=== PATIENT | male | born 1960 | race Caucasian/White ===

== ENCOUNTER 2018-05-07 13:19 | Emergency (ER) | payer OTHER, MEDICAID ==
[2018-05-07] MEDS: SOD CHLORIDE 0.9% 1,000 ML IV ×2 (14:30→17:37)
[2018-05-07 14:33] LABS: ADD MAN DIFF? NO
[2018-05-07 14:35] LABS: BASOPHILS % 0.7 % (0.0-2.0); EOSINOPHILS # 0.5 10^3/ul (0.0-0.5); EOSINOPHILS % 9.3 % (0.0-7.0); HEMATOCRIT 36.4 % (42.0-52.0); HEMOGLOBIN 11.4 g/dl (14.0-18.0); MEAN CORPUSCULAR HEMOGLOBIN 26.3 pg (29.0-33.0); MEAN CORPUSCULAR HGB CONC 31.3 g/dl (32.0-37.0); MEAN CORPUSCULAR VOLUME 84.1 fl (82.0-101.0); MEAN PLATELET VOLUME 9.2 fl (7.4-10.4); MONOCYTE # 0.5 10^3/ul (0.3-0.9); MONOCYTES % 9.6 % (0.0-11.0); NEUTROPHIL # 3.4 10^3/ul (1.6-7.5); NEUTROPHILS % 62.2 % (39.0-77.0); PLATELET COUNT 338 10^3/UL (140-415); RED BLOOD COUNT 4.33 10^6/ul (4.70-6.10); RED CELL DISTRIBUTION WIDTH 17.2 % (11.5-14.5)
[2018-05-07 14:35] LABS: WHITE BLOOD COUNT 5.5 10^3/ul (4.8-10.8)
[2018-05-07 14:57] LABS: ANION GAP 10 (5-13); BLOOD UREA NITROGEN 16 mg/dl (7-20); CALCIUM 9.7 mg/dl (8.4-10.2); CARBON DIOXIDE 24 mmol/L (21-31); CHLORIDE 106 mmol/L (97-110); CREATININE 1.07 mg/dl (0.61-1.24); Estimated GFR > 60 mL/min (>60); GLUCOSE 108 mg/dl (70-220); POTASSIUM 4.6 mmol/L (3.5-5.1); SODIUM 140 mmol/L (135-144)
[2018-05-07 15:07] LABS: TROPONIN-I < 0.012 ng/ml (0.000-0.120)
[2018-05-07 15:46] LABS: ADD UMIC YES; UR ASCORBIC ACID NEGATIVE (NEGATIVE); UR BILIRUBIN (Dip) NEGATIVE (NEGATIVE); UR BLOOD (Dip) NEGATIVE (NEGATIVE); UR CLARITY SLIGHTLY CLOUDY (CLEAR); UR COLOR AMBER (YELLOW); UR GLUCOSE (Dip) NEGATIVE (NEGATIVE); UR KETONES (Dip) TRACE mg/dL (NEGATIVE); UR LEUKOCYTE ESTERASE (Dip) 2+ Leu/ul (NEGATIVE); UR MUCUS MODERATE /HPF (NONE SEEN); UR NITRITE (Dip) NEGATIVE (NEGATIVE); UR RBC 4 /HPF (0-5); UR SQUAMOUS EPITHELIAL CELL FEW /HPF (FEW); UR TOTAL PROTEIN (Dip) 1+ mg/dl (NEGATIVE); UR UROBILINOGEN (Dip) NEGATIVE (NEGATIVE); UR WBC 26 /HPF (0-5)
[2018-05-07 15:48] LABS: D-DIMER 4406.87 ng/ml (<460)
[2018-05-07] MEDS: CEFTRIAXONE 1 GM/50 ML (PMX) 50 ML IVPB (17:25)
[2018-05-07] MEDS: HYDROCODONE/APAP (10/325) TAB PO (17:25)
== END 2018-05-07 20:56 | disposition home or self-care (01) ==
LOC: E/R 13:19
DX: T83.511A Infection and inflammatory reaction due to indwelling urethral catheter, initial encounter (principal); N39.0 Urinary tract infection, site not specified; E86.0 Dehydration; I10 Essential (primary) hypertension; E11.9 Type 2 diabetes mellitus without complications; Y73.2 Prosthetic and other implants, materials and accessory gastroenterology and urology devices associated with adverse incidents
CPT/HCPCS: 36415; 71045; 71275; 80048; 81001; 83605; 84484; 85025; 85378; 87086; 93005; 96374; 99285-25

== ENCOUNTER 2018-05-25 09:39 | Inpatient (IN) | payer OTHER ==
[2018-05-25 10:18] LABS: ADD MAN DIFF? NO
[2018-05-25 10:34] LABS: WHITE BLOOD COUNT 4.8 10^3/ul (4.8-10.8)
[2018-05-25 10:35] LABS: BASOPHILS % 0.8 % (0.0-2.0); EOSINOPHILS # 0.5 10^3/ul (0.0-0.5); EOSINOPHILS % 9.6 % (0.0-7.0); HEMATOCRIT 27.6 % (42.0-52.0); HEMOGLOBIN 8.6 g/dl (14.0-18.0); LYMPHOCYTES # 1.2 10^3/ul (0.8-2.9); LYMPHOCYTES % 24.3 % (15.0-51.0); MEAN CORPUSCULAR HEMOGLOBIN 25.4 pg (29.0-33.0); MEAN CORPUSCULAR HGB CONC 31.2 g/dl (32.0-37.0); MEAN CORPUSCULAR VOLUME 81.4 fl (82.0-101.0); MEAN PLATELET VOLUME 9.4 fl (7.4-10.4); MONOCYTE # 0.4 10^3/ul (0.3-0.9); MONOCYTES % 7.8 % (0.0-11.0); NEUTROPHIL # 2.7 10^3/ul (1.6-7.5); NEUTROPHILS % 57.1 % (39.0-77.0); PLATELET COUNT 403 10^3/UL (140-415); RED BLOOD COUNT 3.39 10^6/ul (4.70-6.10); RED CELL DISTRIBUTION WIDTH 15.6 % (11.5-14.5)
[2018-05-25] MEDS: PIPER-TAZO 3.375 GM IV (PMX) 100 ML IVPB (10:36)
[2018-05-25] MEDS: VANCOMYCIN 1 GM (PMX) 250 ML IVPB (10:36)
[2018-05-25] MEDS: SODIUM CHLORIDE 0.9% 1L BAG IV* (10:36)
[2018-05-25 10:55] LABS: INR 1.14; PROTIME 14.8 Sec (11.9-14.9); PT RATIO 1.2
[2018-05-25 10:56] LABS: PARTIAL THROMBOPLASTIN TIME 45.9 Sec (23.0-35.0)
[2018-05-25 10:57] LABS: ALBUMIN/GLOBULIN RATIO 0.91; ANION GAP 10 (5-13); Estimated GFR > 60 mL/min (>60)
[2018-05-25 10:58] LABS: ALANINE AMINOTRANSFERASE 14 IU/L (13-69); ALBUMIN 3.3 g/dl (3.3-4.9); ALKALINE PHOSPHATASE 95 IU/L (42-121); AMYLASE 59 U/L (11-123); ASPARTATE AMINO TRANSFERASE 57 IU/L (15-46); BILIRUBIN,INDIRECT 0.4 mg/dl (0-1.1); BILIRUBIN,TOTAL 0.4 mg/dl (0.2-1.3); BLOOD UREA NITROGEN 9 mg/dl (7-20); CALCIUM 8.5 mg/dl (8.4-10.2); CARBON DIOXIDE 20 mmol/L (21-31); CHLORIDE 107 mmol/L (97-110); CREATININE 0.72 mg/dl (0.61-1.24); GLUCOSE 109 mg/dl (70-220); LIPASE 106 U/L (23-300); POTASSIUM 4.9 mmol/L (3.5-5.1); SODIUM 137 mmol/L (135-144); TOTAL PROTEIN 6.9 g/dl (6.1-8.1)
[2018-05-25 11:08] LABS: TROPONIN-I < 0.012 ng/ml (0.000-0.120)
[2018-05-25 12:49] LABS: ADD UMIC NO; UR ASCORBIC ACID NEGATIVE (NEGATIVE); UR BILIRUBIN (Dip) NEGATIVE (NEGATIVE); UR BLOOD (Dip) NEGATIVE (NEGATIVE); UR CLARITY CLEAR (CLEAR); UR COLOR AMBER (YELLOW); UR GLUCOSE (Dip) NEGATIVE (NEGATIVE); UR KETONES (Dip) NEGATIVE (NEGATIVE); UR LEUKOCYTE ESTERASE (Dip) NEGATIVE Leu/ul (NEGATIVE); UR NITRITE (Dip) NEGATIVE (NEGATIVE); UR SPECIFIC GRAVITY (Dip) 1.014 (1.003-1.030); UR TOTAL PROTEIN (Dip) NEGATIVE (NEGATIVE); UR UROBILINOGEN (Dip) NEGATIVE (NEGATIVE)
[2018-05-25] MEDS: ONDANSETRON 4 MG INJ IV (13:32)
[2018-05-25] MEDS: HYDROmorphONE 1 MG/ML SYG IV (13:32)
[2018-05-25 14:58] LABS: LACTIC ACID 0.8 mmol/L (0.5-2.0)
[2018-05-25] MEDS ORDERED: ACETAMINOPHEN 325 MG TAB PO (15:00)
[2018-05-25] MEDS ORDERED: ONDANSETRON 4 MG INJ IV ×2 (15:00→15:30)
[2018-05-25] MEDS ORDERED: NACL 0.9% 3 ML SYG IV (15:30)
[2018-05-25] MEDS ORDERED: DOCUSATE SODIUM 100 MG CAP PO ×2 (15:30)
[2018-05-25] MEDS ORDERED: VANCOMYCIN IV PER PHARMACY XX (15:30)
[2018-05-25] MEDS ORDERED: ZOLPIDEM 5 MG TAB PO (15:30)
[2018-05-25] MEDS ORDERED: PENDING SANTYL ORDER FOR WOUND CARE XX (16:30)
[2018-05-25] MEDS: morphine 2 MG INJ IV (19:57)
[2018-05-25] MEDS ORDERED: POLYVINYL ALCOHOL BOTH EYES (22:00)
[2018-05-25] MEDS: MAGNESIUM OXIDE 400 MG TAB PO (22:10)
[2018-05-25] MEDS: FAMOTIDINE 20 MG TAB PO (22:10)
[2018-05-25] MEDS: GABAPENTIN 100 MG CAP PO (22:10)
[2018-05-25] MEDS: RISPERIDONE 1 MG TAB PO (22:11)
[2018-05-25] MEDS: BACLOFEN 10 MG TAB PO (22:11)
[2018-05-25] MEDS: ARTIFICIAL TEARS 15 ML OPH BOTH EYES (22:12)
[2018-05-25] MEDS: ZONISAMIDE 100 MG CAP PO (22:12)
[2018-05-25] MEDS: NYSTATIN 15 GM POWDER BTL TOP (22:12)
[2018-05-25] MEDS: VANCOMYCIN 1.25 GM in SOD CHLORIDE 0.9% 250 ML IVPB (22:39)
[2018-05-26] MEDS: morphine 2 MG INJ IV ×2 (00:27→13:40)
[2018-05-26 06:29] LABS: ADD MAN DIFF? NO
[2018-05-26 06:40] LABS: WHITE BLOOD COUNT 3.3 10^3/ul (4.8-10.8)
[2018-05-26 06:40] LABS: BASOPHILS % 1.2 % (0.0-2.0); EOSINOPHILS # 0.4 10^3/ul (0.0-0.5); EOSINOPHILS % 11.2 % (0.0-7.0); HEMOGLOBIN 7.7 g/dl (14.0-18.0); LYMPHOCYTES # 0.8 10^3/ul (0.8-2.9); LYMPHOCYTES % 25.2 % (15.0-51.0); MEAN CORPUSCULAR HEMOGLOBIN 25.7 pg (29.0-33.0); MEAN CORPUSCULAR HGB CONC 30.8 g/dl (32.0-37.0); MEAN CORPUSCULAR VOLUME 83.3 fl (82.0-101.0); MEAN PLATELET VOLUME 9.1 fl (7.4-10.4); MONOCYTE # 0.4 10^3/ul (0.3-0.9); MONOCYTES % 11.6 % (0.0-11.0); NEUTROPHIL # 1.7 10^3/ul (1.6-7.5); NEUTROPHILS % 50.5 % (39.0-77.0); PLATELET COUNT 352 10^3/UL (140-415); RED CELL DISTRIBUTION WIDTH 15.7 % (11.5-14.5)
[2018-05-26] MEDS: ARTIFICIAL TEARS 15 ML OPH BOTH EYES ×3 (06:49→21:31)
[2018-05-26 07:01] LABS: ANION GAP 6 (5-13); BLOOD UREA NITROGEN 7 mg/dl (7-20); CALCIUM 8.3 mg/dl (8.4-10.2); CARBON DIOXIDE 20 mmol/L (21-31); CHLORIDE 114 mmol/L (97-110); CREATININE 0.79 mg/dl (0.61-1.24); Estimated GFR > 60 mL/min (>60); GLUCOSE 90 mg/dl (70-220); MAGNESIUM 2.3 mg/dl (1.7-2.5); PHOSPHORUS 3.6 mg/dl (2.5-4.9); POTASSIUM 4.2 mmol/L (3.5-5.1); SODIUM 140 mmol/L (135-144)
[2018-05-26 07:48] LABS: HEMOGLOBIN A1C 5.7 % (0-5.9)
[2018-05-26] MEDS: FOLIC ACID 1 MG TAB PO (08:38)
[2018-05-26] MEDS: RIFAMPIN 300 MG CAP PO (08:38)
[2018-05-26] MEDS: GABAPENTIN 100 MG CAP PO ×2 (08:38→21:32)
[2018-05-26] MEDS: PYRIDOXINE 50 MG TAB PO (08:39)
[2018-05-26] MEDS: MAGNESIUM OXIDE 400 MG TAB PO ×2 (08:39→21:33)
[2018-05-26] MEDS: ALLOPURINOL 100 MG TAB PO (08:39)
[2018-05-26] MEDS: ISONIAZID 300 MG TAB PO (08:39)
[2018-05-26] MEDS: BACLOFEN 10 MG TAB PO ×3 (08:39→21:33)
[2018-05-26] MEDS: FAMOTIDINE 20 MG TAB PO ×2 (08:39→21:33)
[2018-05-26] MEDS: DULOXETINE 30 MG CAP DR PO (08:39)
[2018-05-26] MEDS: NYSTATIN 15 GM POWDER BTL TOP ×2 (08:40→21:34)
[2018-05-26] MEDS: VANCOMYCIN 1.25 GM in SOD CHLORIDE 0.9% 250 ML IVPB ×2 (09:39→21:31)
[2018-05-26 12:44] LABS: IRON 17 ug/dl (35-150)
[2018-05-26 12:54] LABS: % IRON SATURATION 11 % SAT (22-52); TOTAL IRON BINDING CAPACITY 152 ug/dl (241-421)
[2018-05-26] MEDS: HYDROCORTISONE 1% 28 GM CR TOP (21:32)
[2018-05-26] MEDS: VITAMIN A & D 5 GM OINT PACKET TOP (21:32)
[2018-05-26] MEDS: ZONISAMIDE 100 MG CAP PO (21:33)
[2018-05-26] MEDS: RISPERIDONE 1 MG TAB PO (21:33)
[2018-05-27] MEDS: ARTIFICIAL TEARS 15 ML OPH BOTH EYES ×3 (05:16→21:21)
[2018-05-27] MEDS: BALSAM PERU/CASTOR OIL 60 GM TUBE TOP ×2 (09:00→09:32)
[2018-05-27] MEDS: DULOXETINE 30 MG CAP DR PO (09:25)
[2018-05-27] MEDS: FOLIC ACID 1 MG TAB PO (09:26)
[2018-05-27] MEDS: GABAPENTIN 100 MG CAP PO ×2 (09:27→21:12)
[2018-05-27] MEDS: MAGNESIUM OXIDE 400 MG TAB PO ×2 (09:27→21:12)
[2018-05-27] MEDS: ISONIAZID 300 MG TAB PO (09:27)
[2018-05-27] MEDS: BACLOFEN 10 MG TAB PO ×3 (09:27→21:12)
[2018-05-27] MEDS: RIFAMPIN 300 MG CAP PO (09:28)
[2018-05-27] MEDS: ALLOPURINOL 100 MG TAB PO (09:28)
[2018-05-27] MEDS: PYRIDOXINE 50 MG TAB PO (09:28)
[2018-05-27 09:29] LABS: ADD MAN DIFF? NO
[2018-05-27] MEDS: VITAMIN A & D 5 GM OINT PACKET TOP ×2 (09:29→21:12)
[2018-05-27] MEDS: HYDROCORTISONE 1% 28 GM CR TOP ×2 (09:29→21:23)
[2018-05-27] MEDS: NYSTATIN 15 GM POWDER BTL TOP ×2 (09:33→21:13)
[2018-05-27 09:34] LABS: BASOPHILS % 0.8 % (0.0-2.0); EOSINOPHILS # 0.4 10^3/ul (0.0-0.5); EOSINOPHILS % 10.5 % (0.0-7.0); HEMATOCRIT 26.8 % (42.0-52.0); HEMOGLOBIN 8.4 g/dl (14.0-18.0); LYMPHOCYTES # 0.9 10^3/ul (0.8-2.9); LYMPHOCYTES % 23.3 % (15.0-51.0); MEAN CORPUSCULAR HGB CONC 31.3 g/dl (32.0-37.0); MEAN PLATELET VOLUME 8.7 fl (7.4-10.4); MONOCYTE # 0.3 10^3/ul (0.3-0.9); MONOCYTES % 7.3 % (0.0-11.0); NEUTROPHIL # 2.2 10^3/ul (1.6-7.5); NEUTROPHILS % 57.8 % (39.0-77.0); PLATELET COUNT 419 10^3/UL (140-415); RED BLOOD COUNT 3.23 10^6/ul (4.70-6.10); RED CELL DISTRIBUTION WIDTH 15.6 % (11.5-14.5)
[2018-05-27 09:34] LABS: WHITE BLOOD COUNT 3.8 10^3/ul (4.8-10.8)
[2018-05-27] MEDS: morphine 2 MG INJ IV ×2 (09:34→14:07)
[2018-05-27] MEDS: FAMOTIDINE 20 MG TAB PO ×2 (09:35→21:11)
[2018-05-27 09:56] LABS: ANION GAP 8 (5-13); BLOOD UREA NITROGEN 6 mg/dl (7-20); CALCIUM 8.9 mg/dl (8.4-10.2); CARBON DIOXIDE 20 mmol/L (21-31); CHLORIDE 114 mmol/L (97-110); CREATININE 0.75 mg/dl (0.61-1.24); Estimated GFR > 60 mL/min (>60); GLUCOSE 138 mg/dl (70-220); POTASSIUM 4.2 mmol/L (3.5-5.1); SODIUM 142 mmol/L (135-144)
[2018-05-27] MEDS: VANCOMYCIN 1.25 GM in SOD CHLORIDE 0.9% 250 ML IVPB (10:00)
[2018-05-27 10:09] LABS: VANCOMYCIN,TROUGH 24.4 ug/ml (10.0-20.0)
[2018-05-27 11:22] LABS: IRON 14 ug/dl (35-150)
[2018-05-27 11:32] LABS: % IRON SATURATION 9 % SAT (22-52); TOTAL IRON BINDING CAPACITY 164 ug/dl (241-421)
[2018-05-27] MEDS: COLLAGENASE 5 GM (UD JAR) TOP (17:30)
[2018-05-27] MEDS: SODIUM HYPOCHLORITE (1/40) 1 APPLIC BTL IRR (18:30)
[2018-05-27] MEDS ORDERED: VANCOMYCIN 1.5 GM in SOD CHLORIDE 0.9% 250 ML IVPB (21:00)
[2018-05-27] MEDS: DOCUSATE SODIUM 100 MG CAP PO (21:11)
[2018-05-27] MEDS: RISPERIDONE 1 MG TAB PO (21:12)
[2018-05-27] MEDS: ZONISAMIDE 100 MG CAP PO (21:12)
[2018-05-27] MEDS: FERROUS FUMARATE (SR) TAB PO (21:12)
[2018-05-28] MEDS: ARTIFICIAL TEARS 15 ML OPH BOTH EYES ×3 (06:22→21:19)
[2018-05-28] MEDS: BALSAM PERU/CASTOR OIL 60 GM TUBE TOP (09:00)
[2018-05-28] MEDS: SODIUM HYPOCHLORITE (1/40) 1 APPLIC BTL IRR (09:00)
[2018-05-28] MEDS: FAMOTIDINE 20 MG TAB PO ×2 (09:05→22:05)
[2018-05-28] MEDS: RIFAMPIN 300 MG CAP PO (09:05)
[2018-05-28] MEDS: ALLOPURINOL 100 MG TAB PO (09:05)
[2018-05-28] MEDS: FERROUS FUMARATE (SR) TAB PO ×2 (09:05→21:03)
[2018-05-28] MEDS: ISONIAZID 300 MG TAB PO (09:06)
[2018-05-28] MEDS: MAGNESIUM OXIDE 400 MG TAB PO ×2 (09:06→21:03)
[2018-05-28] MEDS: DULOXETINE 30 MG CAP DR PO (09:06)
[2018-05-28] MEDS: DOCUSATE SODIUM 100 MG CAP PO ×2 (09:06→21:03)
[2018-05-28] MEDS: FOLIC ACID 1 MG TAB PO (09:06)
[2018-05-28] MEDS: BACLOFEN 10 MG TAB PO ×3 (09:06→21:03)
[2018-05-28] MEDS: PYRIDOXINE 50 MG TAB PO (09:07)
[2018-05-28] MEDS: GABAPENTIN 100 MG CAP PO ×2 (09:07→21:03)
[2018-05-28] MEDS: ENOXAPARIN 40 MG/0.4 ML SYG SC (09:10)
[2018-05-28] MEDS: HYDROCORTISONE 1% 28 GM CR TOP ×2 (09:12→21:08)
[2018-05-28] MEDS: VITAMIN A & D 5 GM OINT PACKET TOP ×2 (09:13→21:04)
[2018-05-28] MEDS: COLLAGENASE 5 GM (UD JAR) TOP (09:13)
[2018-05-28] MEDS: HYDROCODONE/APAP (5/325) TAB PO ×3 (09:18→22:50)
[2018-05-28] MEDS: NYSTATIN 15 GM POWDER BTL TOP ×2 (10:17→21:00)
[2018-05-28] MEDS: morphine 2 MG INJ IV ×2 (13:38→21:09)
[2018-05-28] MEDS: LEVOFLOXACIN 500MG/D5W (PMX) 100 ML IVPB (14:30)
[2018-05-28] MEDS: RISPERIDONE 1 MG TAB PO (21:03)
[2018-05-28] MEDS: ZONISAMIDE 100 MG CAP PO (21:03)
[2018-05-29] MEDS: morphine 2 MG INJ IV ×4 (01:19→22:23)
[2018-05-29] MEDS: ARTIFICIAL TEARS 15 ML OPH BOTH EYES ×3 (05:57→21:00)
[2018-05-29] MEDS: HYDROCODONE/APAP (5/325) TAB PO ×3 (05:57→20:55)
[2018-05-29] MEDS: SODIUM HYPOCHLORITE (1/40) 1 APPLIC BTL IRR (09:00)
[2018-05-29] MEDS: DOCUSATE SODIUM 100 MG CAP PO ×2 (09:56→20:57)
[2018-05-29] MEDS: RIFAMPIN 300 MG CAP PO (09:57)
[2018-05-29] MEDS: FAMOTIDINE 20 MG TAB PO ×2 (09:57→20:57)
[2018-05-29] MEDS: BACLOFEN 10 MG TAB PO ×3 (09:57→20:58)
[2018-05-29] MEDS: GABAPENTIN 100 MG CAP PO ×2 (09:57→20:58)
[2018-05-29] MEDS: FERROUS FUMARATE (SR) TAB PO ×2 (09:57→20:56)
[2018-05-29] MEDS: ALLOPURINOL 100 MG TAB PO (09:57)
[2018-05-29] MEDS: FOLIC ACID 1 MG TAB PO (09:57)
[2018-05-29] MEDS: MAGNESIUM OXIDE 400 MG TAB PO ×2 (09:57→20:57)
[2018-05-29] MEDS: DULOXETINE 30 MG CAP DR PO (09:57)
[2018-05-29] MEDS: VITAMIN A & D 5 GM OINT PACKET TOP ×2 (09:58→20:58)
[2018-05-29] MEDS: ISONIAZID 300 MG TAB PO (09:58)
[2018-05-29] MEDS: PYRIDOXINE 50 MG TAB PO (09:58)
[2018-05-29] MEDS: ENOXAPARIN 40 MG/0.4 ML SYG SC (09:59)
[2018-05-29] MEDS: NYSTATIN 15 GM POWDER BTL TOP ×2 (09:59→21:06)
[2018-05-29] MEDS: COLLAGENASE 5 GM (UD JAR) TOP (09:59)
[2018-05-29] MEDS: BALSAM PERU/CASTOR OIL 60 GM TUBE TOP (09:59)
[2018-05-29] MEDS: HYDROCORTISONE 1% 28 GM CR TOP ×2 (09:59→20:58)
[2018-05-29] MEDS: LEVOFLOXACIN 500MG/D5W (PMX) 100 ML IVPB (13:35)
[2018-05-29] MEDS: RISPERIDONE 1 MG TAB PO (20:57)
[2018-05-29] MEDS: ZONISAMIDE 100 MG CAP PO (21:04)
[2018-05-30] MEDS: HYDROCODONE/APAP (5/325) TAB PO ×3 (02:58→17:25)
[2018-05-30] MEDS: ARTIFICIAL TEARS 15 ML OPH BOTH EYES ×3 (06:13→21:15)
[2018-05-30] MEDS: morphine 2 MG INJ IV ×3 (06:29→21:14)
[2018-05-30] MEDS: COLLAGENASE 5 GM (UD JAR) TOP (09:01)
[2018-05-30] MEDS: MAGNESIUM OXIDE 400 MG TAB PO ×2 (09:01→21:16)
[2018-05-30] MEDS: DOCUSATE SODIUM 100 MG CAP PO ×2 (09:01→21:15)
[2018-05-30] MEDS: ISONIAZID 300 MG TAB PO (09:02)
[2018-05-30] MEDS: GABAPENTIN 100 MG CAP PO ×2 (09:02→21:16)
[2018-05-30] MEDS: ALLOPURINOL 100 MG TAB PO (09:02)
[2018-05-30] MEDS: PYRIDOXINE 50 MG TAB PO (09:02)
[2018-05-30] MEDS: BACLOFEN 10 MG TAB PO ×3 (09:02→21:16)
[2018-05-30] MEDS: RIFAMPIN 300 MG CAP PO (09:02)
[2018-05-30] MEDS: FERROUS FUMARATE (SR) TAB PO ×2 (09:03→21:16)
[2018-05-30] MEDS: FOLIC ACID 1 MG TAB PO (09:03)
[2018-05-30] MEDS: DULOXETINE 30 MG CAP DR PO (09:03)
[2018-05-30] MEDS: FAMOTIDINE 20 MG TAB PO ×2 (09:03→21:16)
[2018-05-30] MEDS: VITAMIN A & D 5 GM OINT PACKET TOP ×2 (09:05→21:17)
[2018-05-30] MEDS: SODIUM HYPOCHLORITE (1/40) 1 APPLIC BTL IRR (09:05)
[2018-05-30] MEDS: ENOXAPARIN 40 MG/0.4 ML SYG SC (09:05)
[2018-05-30] MEDS: HYDROCORTISONE 1% 28 GM CR TOP ×2 (09:05→21:28)
[2018-05-30] MEDS: NYSTATIN 15 GM POWDER BTL TOP ×2 (09:05→21:17)
[2018-05-30] MEDS: BALSAM PERU/CASTOR OIL 60 GM TUBE TOP (09:05)
[2018-05-30] MEDS: LEVOFLOXACIN 500MG/D5W (PMX) 100 ML IVPB (13:53)
[2018-05-30] MEDS: RISPERIDONE 1 MG TAB PO (21:16)
[2018-05-30] MEDS: ZONISAMIDE 100 MG CAP PO (21:17)
[2018-05-31] MEDS: morphine 2 MG INJ IV ×3 (02:59→19:37)
[2018-05-31 05:17] LABS: ADD MAN DIFF? NO
[2018-05-31 05:27] LABS: EOSINOPHILS # 0.4 10^3/ul (0.0-0.5); EOSINOPHILS % 10.3 % (0.0-7.0); HEMATOCRIT 24.8 % (42.0-52.0); HEMOGLOBIN 7.7 g/dl (14.0-18.0); LYMPHOCYTES # 1.1 10^3/ul (0.8-2.9); LYMPHOCYTES % 26.7 % (15.0-51.0); MEAN CORPUSCULAR HEMOGLOBIN 25.2 pg (29.0-33.0); MEAN CORPUSCULAR VOLUME 81.3 fl (82.0-101.0); MEAN PLATELET VOLUME 8.6 fl (7.4-10.4); MONOCYTE # 0.5 10^3/ul (0.3-0.9); MONOCYTES % 11.5 % (0.0-11.0); NEUTROPHIL # 2.1 10^3/ul (1.6-7.5); PLATELET COUNT 371 10^3/UL (140-415); RED BLOOD COUNT 3.05 10^6/ul (4.70-6.10); RED CELL DISTRIBUTION WIDTH 15.9 % (11.5-14.5)
[2018-05-31 05:27] LABS: WHITE BLOOD COUNT 4.2 10^3/ul (4.8-10.8)
[2018-05-31] MEDS: ARTIFICIAL TEARS 15 ML OPH BOTH EYES ×3 (05:41→21:19)
[2018-05-31 05:54] LABS: ANION GAP 8 (5-13); BLOOD UREA NITROGEN 7 mg/dl (7-20); CALCIUM 8.5 mg/dl (8.4-10.2); CARBON DIOXIDE 21 mmol/L (21-31); CHLORIDE 110 mmol/L (97-110); CREATININE 0.73 mg/dl (0.61-1.24); Estimated GFR > 60 mL/min (>60); GLUCOSE 97 mg/dl (70-220); POTASSIUM 4.4 mmol/L (3.5-5.1); SODIUM 139 mmol/L (135-144)
[2018-05-31] MEDS: BALSAM PERU/CASTOR OIL 60 GM TUBE TOP (09:00)
[2018-05-31] MEDS: VITAMIN A & D 5 GM OINT PACKET TOP ×2 (09:24→21:17)
[2018-05-31] MEDS: GABAPENTIN 100 MG CAP PO ×2 (09:24→21:20)
[2018-05-31] MEDS: FAMOTIDINE 20 MG TAB PO ×2 (09:24→21:21)
[2018-05-31] MEDS: RIFAMPIN 300 MG CAP PO (09:24)
[2018-05-31] MEDS: COLLAGENASE 5 GM (UD JAR) TOP (09:24)
[2018-05-31] MEDS: ISONIAZID 300 MG TAB PO (09:24)
[2018-05-31] MEDS: DOCUSATE SODIUM 100 MG CAP PO ×2 (09:24→21:20)
[2018-05-31] MEDS: FERROUS FUMARATE (SR) TAB PO ×2 (09:24→21:21)
[2018-05-31] MEDS: PYRIDOXINE 50 MG TAB PO (09:24)
[2018-05-31] MEDS: BACLOFEN 10 MG TAB PO ×3 (09:25→21:21)
[2018-05-31] MEDS: DULOXETINE 30 MG CAP DR PO (09:25)
[2018-05-31] MEDS: MAGNESIUM OXIDE 400 MG TAB PO ×2 (09:25→21:22)
[2018-05-31] MEDS: ALLOPURINOL 100 MG TAB PO (09:25)
[2018-05-31] MEDS: FOLIC ACID 1 MG TAB PO (09:25)
[2018-05-31] MEDS: ENOXAPARIN 40 MG/0.4 ML SYG SC (09:27)
[2018-05-31] MEDS: SODIUM HYPOCHLORITE (1/40) 1 APPLIC BTL IRR (09:35)
[2018-05-31] MEDS: NYSTATIN 15 GM POWDER BTL TOP ×2 (09:35→21:25)
[2018-05-31] MEDS: HYDROCORTISONE 1% 28 GM CR TOP ×2 (09:35→21:24)
[2018-05-31] MEDS: HYDROCODONE/APAP (5/325) TAB PO ×2 (10:36→21:21)
[2018-05-31] MEDS: LEVOFLOXACIN 500MG/D5W (PMX) 100 ML IVPB (13:57)
[2018-05-31] MEDS: ZONISAMIDE 100 MG CAP PO (21:20)
[2018-05-31] MEDS: RISPERIDONE 1 MG TAB PO (21:22)
[2018-06-01] MEDS: ARTIFICIAL TEARS 15 ML OPH BOTH EYES ×3 (06:02→20:52)
[2018-06-01] MEDS: morphine 2 MG INJ IV (06:02)
[2018-06-01] MEDS: COLLAGENASE 5 GM (UD JAR) TOP (09:00)
[2018-06-01] MEDS: SODIUM HYPOCHLORITE (1/40) 1 APPLIC BTL IRR (09:00)
[2018-06-01] MEDS: ENOXAPARIN 40 MG/0.4 ML SYG SC (09:19)
[2018-06-01] MEDS: DOCUSATE SODIUM 100 MG CAP PO ×2 (09:19→20:51)
[2018-06-01] MEDS: DULOXETINE 30 MG CAP DR PO (09:20)
[2018-06-01] MEDS: FOLIC ACID 1 MG TAB PO (09:20)
[2018-06-01] MEDS: FERROUS FUMARATE (SR) TAB PO ×2 (09:20→20:52)
[2018-06-01] MEDS: RIFAMPIN 300 MG CAP PO (09:21)
[2018-06-01] MEDS: MAGNESIUM OXIDE 400 MG TAB PO ×2 (09:21→20:51)
[2018-06-01] MEDS: ISONIAZID 300 MG TAB PO (09:21)
[2018-06-01] MEDS: FAMOTIDINE 20 MG TAB PO ×2 (09:21→20:51)
[2018-06-01] MEDS: BACLOFEN 10 MG TAB PO ×3 (09:21→20:51)
[2018-06-01] MEDS: GABAPENTIN 100 MG CAP PO ×2 (09:21→20:51)
[2018-06-01] MEDS: ALLOPURINOL 100 MG TAB PO (09:21)
[2018-06-01] MEDS: PYRIDOXINE 50 MG TAB PO (09:21)
[2018-06-01] MEDS: NYSTATIN 15 GM POWDER BTL TOP ×2 (09:22→20:53)
[2018-06-01] MEDS: HYDROCORTISONE 1% 28 GM CR TOP ×2 (09:22→20:53)
[2018-06-01] MEDS: VITAMIN A & D 5 GM OINT PACKET TOP ×2 (09:22→20:52)
[2018-06-01] MEDS: BALSAM PERU/CASTOR OIL 60 GM TUBE TOP (09:29)
[2018-06-01] MEDS: LEVOFLOXACIN 500MG/D5W (PMX) 100 ML IVPB (13:25)
[2018-06-01] MEDS: HYDROCODONE/APAP (5/325) TAB PO (18:19)
[2018-06-01] MEDS: ZONISAMIDE 100 MG CAP PO (20:51)
[2018-06-01] MEDS: RISPERIDONE 1 MG TAB PO (20:51)
[2018-06-02] MEDS: HYDROCODONE/APAP (5/325) TAB PO ×2 (00:22→06:41)
[2018-06-02] MEDS: ARTIFICIAL TEARS 15 ML OPH BOTH EYES ×3 (05:25→22:16)
[2018-06-02] MEDS: FERROUS FUMARATE (SR) TAB PO ×2 (09:13→20:39)
[2018-06-02] MEDS: PYRIDOXINE 50 MG TAB PO (09:13)
[2018-06-02] MEDS: GABAPENTIN 100 MG CAP PO ×2 (09:13→20:40)
[2018-06-02] MEDS: MAGNESIUM OXIDE 400 MG TAB PO ×2 (09:13→20:42)
[2018-06-02] MEDS: ISONIAZID 300 MG TAB PO (09:13)
[2018-06-02] MEDS: DOCUSATE SODIUM 100 MG CAP PO ×2 (09:14→20:39)
[2018-06-02] MEDS: ALLOPURINOL 100 MG TAB PO (09:14)
[2018-06-02] MEDS: RIFAMPIN 300 MG CAP PO (09:14)
[2018-06-02] MEDS: FAMOTIDINE 20 MG TAB PO ×2 (09:14→20:42)
[2018-06-02] MEDS: FOLIC ACID 1 MG TAB PO (09:15)
[2018-06-02] MEDS: DULOXETINE 30 MG CAP DR PO (09:15)
[2018-06-02] MEDS: BACLOFEN 10 MG TAB PO ×3 (09:15→20:40)
[2018-06-02] MEDS: ENOXAPARIN 40 MG/0.4 ML SYG SC (09:16)
[2018-06-02] MEDS: VITAMIN A & D 5 GM OINT PACKET TOP ×3 (09:17→20:43)
[2018-06-02] MEDS: NYSTATIN 15 GM POWDER BTL TOP ×2 (11:22→20:41)
[2018-06-02] MEDS: SODIUM HYPOCHLORITE (1/40) 1 APPLIC BTL IRR (11:22)
[2018-06-02] MEDS: HYDROCORTISONE 1% 28 GM CR TOP ×3 (11:23→20:42)
[2018-06-02] MEDS: COLLAGENASE 5 GM (UD JAR) TOP (11:23)
[2018-06-02] MEDS: BALSAM PERU/CASTOR OIL 60 GM TUBE TOP (11:23)
[2018-06-02] MEDS: LEVOFLOXACIN 500 MG TAB PO (14:38)
[2018-06-02] MEDS: ZONISAMIDE 100 MG CAP PO (20:39)
[2018-06-02] MEDS: RISPERIDONE 1 MG TAB PO (20:40)
[2018-06-03] MEDS: HYDROCODONE/APAP (5/325) TAB PO ×2 (00:08→06:11)
[2018-06-03] MEDS: ARTIFICIAL TEARS 15 ML OPH BOTH EYES ×3 (05:46→21:16)
[2018-06-03] MEDS: LEVOFLOXACIN 500 MG TAB PO (05:46)
[2018-06-03] MEDS: COLLAGENASE 5 GM (UD JAR) TOP (08:48)
[2018-06-03] MEDS: BACLOFEN 10 MG TAB PO ×3 (08:48→21:16)
[2018-06-03] MEDS: SODIUM HYPOCHLORITE (1/40) 1 APPLIC BTL IRR (08:48)
[2018-06-03] MEDS: FAMOTIDINE 20 MG TAB PO ×2 (08:48→21:16)
[2018-06-03] MEDS: DULOXETINE 30 MG CAP DR PO (08:49)
[2018-06-03] MEDS: PYRIDOXINE 50 MG TAB PO (08:49)
[2018-06-03] MEDS: RIFAMPIN 300 MG CAP PO (08:49)
[2018-06-03] MEDS: FERROUS FUMARATE (SR) TAB PO ×2 (08:49→21:16)
[2018-06-03] MEDS: DOCUSATE SODIUM 100 MG CAP PO ×2 (08:49→21:16)
[2018-06-03] MEDS: GABAPENTIN 100 MG CAP PO ×2 (08:49→21:16)
[2018-06-03] MEDS: ISONIAZID 300 MG TAB PO (08:49)
[2018-06-03] MEDS: ALLOPURINOL 100 MG TAB PO (08:49)
[2018-06-03] MEDS: MAGNESIUM OXIDE 400 MG TAB PO ×2 (08:49→21:16)
[2018-06-03] MEDS: NYSTATIN 15 GM POWDER BTL TOP ×2 (08:51→21:00)
[2018-06-03] MEDS: HYDROCORTISONE 1% 28 GM CR TOP ×2 (08:51→21:22)
[2018-06-03] MEDS: ENOXAPARIN 40 MG/0.4 ML SYG SC (08:51)
[2018-06-03] MEDS: BALSAM PERU/CASTOR OIL 60 GM TUBE TOP (08:51)
[2018-06-03] MEDS: FOLIC ACID 1 MG TAB PO (08:53)
[2018-06-03] MEDS: VITAMIN A & D 5 GM OINT PACKET TOP ×2 (09:15→21:16)
[2018-06-03] MEDS: SOD CHLORIDE 0.9% 250 ML IV* (12:45)
[2018-06-03 14:25] LABS: IMMEDIATE SPIN CROSSMATCH 1 1
[2018-06-03] MEDS: morphine 2 MG INJ IV ×2 (14:28→21:36)
[2018-06-03] MEDS: RISPERIDONE 1 MG TAB PO (21:16)
[2018-06-03] MEDS: ZONISAMIDE 100 MG CAP PO (21:16)
[2018-06-04] MEDS: ARTIFICIAL TEARS 15 ML OPH BOTH EYES ×3 (05:26→20:38)
[2018-06-04] MEDS: LEVOFLOXACIN 500 MG TAB PO (05:26)
[2018-06-04 05:31] LABS: ADD MAN DIFF? NO
[2018-06-04 05:37] LABS: WHITE BLOOD COUNT 3.8 10^3/ul (4.8-10.8)
[2018-06-04 05:37] LABS: BASOPHILS % 1.1 % (0.0-2.0); EOSINOPHILS # 0.3 10^3/ul (0.0-0.5); EOSINOPHILS % 7.7 % (0.0-7.0); HEMATOCRIT 27.9 % (42.0-52.0); LYMPHOCYTES # 1.2 10^3/ul (0.8-2.9); LYMPHOCYTES % 32.8 % (15.0-51.0); MEAN CORPUSCULAR HEMOGLOBIN 25.9 pg (29.0-33.0); MEAN CORPUSCULAR HGB CONC 32.3 g/dl (32.0-37.0); MEAN CORPUSCULAR VOLUME 80.2 fl (82.0-101.0); MEAN PLATELET VOLUME 8.7 fl (7.4-10.4); MONOCYTE # 0.4 10^3/ul (0.3-0.9); MONOCYTES % 11.2 % (0.0-11.0); NEUTROPHIL # 1.8 10^3/ul (1.6-7.5); NEUTROPHILS % 46.7 % (39.0-77.0); PLATELET COUNT 379 10^3/UL (140-415); RED BLOOD COUNT 3.48 10^6/ul (4.70-6.10); RED CELL DISTRIBUTION WIDTH 15.9 % (11.5-14.5)
[2018-06-04] MEDS: morphine 2 MG INJ IV ×2 (05:40→10:12)
[2018-06-04] MEDS: COLLAGENASE 5 GM (UD JAR) TOP ×2 (05:46→09:00)
[2018-06-04] MEDS: SODIUM HYPOCHLORITE (1/40) 1 APPLIC BTL IRR (05:46)
[2018-06-04 06:07] LABS: ANION GAP 8 (5-13); BLOOD UREA NITROGEN 7 mg/dl (7-20); CALCIUM 8.9 mg/dl (8.4-10.2); CARBON DIOXIDE 20 mmol/L (21-31); CHLORIDE 108 mmol/L (97-110); CREATININE 0.74 mg/dl (0.61-1.24); Estimated GFR > 60 mL/min (>60); GLUCOSE 98 mg/dl (70-220); POTASSIUM 4.3 mmol/L (3.5-5.1); SODIUM 136 mmol/L (135-144)
[2018-06-04] MEDS: NYSTATIN 15 GM POWDER BTL TOP ×3 (09:00→20:43)
[2018-06-04] MEDS: BALSAM PERU/CASTOR OIL 60 GM TUBE TOP (09:00)
[2018-06-04] MEDS: DOCUSATE SODIUM 100 MG CAP PO ×2 (09:00→20:38)
[2018-06-04] MEDS: GABAPENTIN 100 MG CAP PO ×2 (09:35→20:38)
[2018-06-04] MEDS: FAMOTIDINE 20 MG TAB PO ×2 (09:35→20:38)
[2018-06-04] MEDS: PYRIDOXINE 50 MG TAB PO (09:35)
[2018-06-04] MEDS: ALLOPURINOL 100 MG TAB PO (09:35)
[2018-06-04] MEDS: DULOXETINE 30 MG CAP DR PO (09:35)
[2018-06-04] MEDS: RIFAMPIN 300 MG CAP PO (09:35)
[2018-06-04] MEDS: MAGNESIUM OXIDE 400 MG TAB PO ×2 (09:35→20:38)
[2018-06-04] MEDS: FOLIC ACID 1 MG TAB PO (09:36)
[2018-06-04] MEDS: BACLOFEN 10 MG TAB PO ×3 (09:36→20:38)
[2018-06-04] MEDS: FERROUS FUMARATE (SR) TAB PO ×2 (09:36→20:38)
[2018-06-04] MEDS: HYDROCORTISONE 1% 28 GM CR TOP ×2 (09:47→20:43)
[2018-06-04] MEDS: ISONIAZID 300 MG TAB PO (10:12)
[2018-06-04] MEDS: VITAMIN A & D 5 GM OINT PACKET TOP ×2 (10:12→20:38)
[2018-06-04] MEDS: HYDROCODONE/APAP (5/325) TAB PO (20:27)
[2018-06-04] MEDS: ZONISAMIDE 100 MG CAP PO (20:38)
[2018-06-04] MEDS: RISPERIDONE 1 MG TAB PO (20:38)
[2018-06-05] MEDS: LEVOFLOXACIN 500 MG TAB PO (05:26)
[2018-06-05] MEDS: HYDROCODONE/APAP (5/325) TAB PO ×2 (05:27→21:54)
[2018-06-05] MEDS: ARTIFICIAL TEARS 15 ML OPH BOTH EYES ×3 (05:27→21:56)
[2018-06-05] MEDS: SOD CHLORIDE 0.9% 500 ML IV (06:44)
[2018-06-05] MEDS ORDERED: NITROGLYCERIN (SL) 0.4 MG TAB SL (07:00)
[2018-06-05 08:08] LABS: TROPONIN-I < 0.012 ng/ml (0.000-0.120)
[2018-06-05] MEDS: COLLAGENASE 5 GM (UD JAR) TOP ×2 (09:00)
[2018-06-05] MEDS: SODIUM HYPOCHLORITE (1/40) 1 APPLIC BTL IRR (09:00)
[2018-06-05] MEDS: BALSAM PERU/CASTOR OIL 60 GM TUBE TOP (09:00)
[2018-06-05] MEDS: DOCUSATE SODIUM 100 MG CAP PO ×2 (09:46→20:20)
[2018-06-05] MEDS: BACLOFEN 10 MG TAB PO ×3 (09:48→20:22)
[2018-06-05] MEDS: FOLIC ACID 1 MG TAB PO (09:48)
[2018-06-05] MEDS: DULOXETINE 30 MG CAP DR PO (09:48)
[2018-06-05] MEDS: FERROUS FUMARATE (SR) TAB PO ×2 (09:48→20:21)
[2018-06-05] MEDS: ISONIAZID 300 MG TAB PO (09:48)
[2018-06-05] MEDS: GABAPENTIN 100 MG CAP PO ×2 (09:49→20:21)
[2018-06-05] MEDS: ALLOPURINOL 100 MG TAB PO (09:49)
[2018-06-05] MEDS: FAMOTIDINE 20 MG TAB PO ×2 (09:49→20:21)
[2018-06-05] MEDS: PYRIDOXINE 50 MG TAB PO (09:49)
[2018-06-05] MEDS: MAGNESIUM OXIDE 400 MG TAB PO ×2 (09:49→20:21)
[2018-06-05] MEDS: RIFAMPIN 300 MG CAP PO (09:49)
[2018-06-05] MEDS: VITAMIN A & D 5 GM OINT PACKET TOP ×2 (09:50→20:22)
[2018-06-05] MEDS: HYDROCORTISONE 1% 28 GM CR TOP ×2 (09:50→20:29)
[2018-06-05] MEDS: NYSTATIN 15 GM POWDER BTL TOP ×2 (09:50→20:29)
[2018-06-05] MEDS: morphine 2 MG INJ IV (20:20)
[2018-06-05] MEDS: RISPERIDONE 1 MG TAB PO (20:21)
[2018-06-05] MEDS: ZONISAMIDE 100 MG CAP PO (20:21)
[2018-06-06] MEDS: ARTIFICIAL TEARS 15 ML OPH BOTH EYES ×3 (06:20→21:25)
[2018-06-06] MEDS: LEVOFLOXACIN 500 MG TAB PO (06:21)
[2018-06-06] MEDS: FERROUS FUMARATE (SR) TAB PO ×2 (08:52→20:08)
[2018-06-06] MEDS: DULOXETINE 30 MG CAP DR PO (08:52)
[2018-06-06] MEDS: PYRIDOXINE 50 MG TAB PO (08:52)
[2018-06-06] MEDS: RIFAMPIN 300 MG CAP PO (08:52)
[2018-06-06] MEDS: FOLIC ACID 1 MG TAB PO (08:52)
[2018-06-06] MEDS: GABAPENTIN 100 MG CAP PO ×2 (08:52→20:08)
[2018-06-06] MEDS: MAGNESIUM OXIDE 400 MG TAB PO ×2 (08:52→20:08)
[2018-06-06] MEDS: COLLAGENASE 5 GM (UD JAR) TOP ×2 (08:52→08:54)
[2018-06-06] MEDS: FAMOTIDINE 20 MG TAB PO ×2 (08:52→20:08)
[2018-06-06] MEDS: DOCUSATE SODIUM 100 MG CAP PO ×2 (08:52→20:08)
[2018-06-06] MEDS: VITAMIN A & D 5 GM OINT PACKET TOP ×2 (08:52→20:09)
[2018-06-06] MEDS: BACLOFEN 10 MG TAB PO ×3 (08:53→20:08)
[2018-06-06] MEDS: ISONIAZID 300 MG TAB PO (08:53)
[2018-06-06] MEDS: SODIUM HYPOCHLORITE (1/40) 1 APPLIC BTL IRR (08:53)
[2018-06-06] MEDS: ALLOPURINOL 100 MG TAB PO (08:53)
[2018-06-06] MEDS: HYDROCORTISONE 1% 28 GM CR TOP ×2 (08:54→20:10)
[2018-06-06] MEDS: NYSTATIN 15 GM POWDER BTL TOP ×2 (08:54→20:11)
[2018-06-06] MEDS: BALSAM PERU/CASTOR OIL 60 GM TUBE TOP (08:54)
[2018-06-06] MEDS: ENOXAPARIN 40 MG/0.4 ML SYG SC (09:07)
[2018-06-06] MEDS: morphine 2 MG INJ IV ×3 (09:09→20:09)
[2018-06-06] MEDS: HYDROCODONE/APAP (5/325) TAB PO (11:09)
[2018-06-06] MEDS: RISPERIDONE 1 MG TAB PO (20:09)
[2018-06-06] MEDS: ZONISAMIDE 100 MG CAP PO (21:25)
[2018-06-07] MEDS: ARTIFICIAL TEARS 15 ML OPH BOTH EYES ×3 (05:54→21:29)
[2018-06-07] MEDS: LEVOFLOXACIN 500 MG TAB PO (05:54)
[2018-06-07 06:07] LABS: ADD MAN DIFF? NO
[2018-06-07 06:08] LABS: WHITE BLOOD COUNT 4.3 10^3/ul (4.8-10.8)
[2018-06-07 06:08] LABS: BASOPHIL # 0.1 10^3/ul (0.0-0.1); BASOPHILS % 1.2 % (0.0-2.0); EOSINOPHILS # 0.4 10^3/ul (0.0-0.5); EOSINOPHILS % 8.2 % (0.0-7.0); HEMATOCRIT 25.5 % (42.0-52.0); HEMOGLOBIN 8.2 g/dl (14.0-18.0); LYMPHOCYTES # 1.2 10^3/ul (0.8-2.9); LYMPHOCYTES % 27.7 % (15.0-51.0); MEAN CORPUSCULAR HEMOGLOBIN 26.2 pg (29.0-33.0); MEAN CORPUSCULAR HGB CONC 32.2 g/dl (32.0-37.0); MEAN CORPUSCULAR VOLUME 81.5 fl (82.0-101.0); MEAN PLATELET VOLUME 8.7 fl (7.4-10.4); MONOCYTE # 0.6 10^3/ul (0.3-0.9); MONOCYTES % 14.5 % (0.0-11.0); NEUTROPHIL # 2.1 10^3/ul (1.6-7.5); NEUTROPHILS % 47.7 % (39.0-77.0); PLATELET COUNT 343 10^3/UL (140-415); RED BLOOD COUNT 3.13 10^6/ul (4.70-6.10); RED CELL DISTRIBUTION WIDTH 16.8 % (11.5-14.5)
[2018-06-07 07:21] LABS: ANION GAP 8 (5-13); BLOOD UREA NITROGEN 14 mg/dl (7-20); CALCIUM 8.6 mg/dl (8.4-10.2); CARBON DIOXIDE 20 mmol/L (21-31); CHLORIDE 109 mmol/L (97-110); CREATININE 0.88 mg/dl (0.61-1.24); Estimated GFR > 60 mL/min (>60); GLUCOSE 87 mg/dl (70-220); POTASSIUM 4.3 mmol/L (3.5-5.1); SODIUM 137 mmol/L (135-144)
[2018-06-07] MEDS: ENOXAPARIN 40 MG/0.4 ML SYG SC (08:14)
[2018-06-07] MEDS: ISONIAZID 300 MG TAB PO (08:15)
[2018-06-07] MEDS: DOCUSATE SODIUM 100 MG CAP PO ×2 (08:15→21:26)
[2018-06-07] MEDS: PYRIDOXINE 50 MG TAB PO (08:15)
[2018-06-07] MEDS: FAMOTIDINE 20 MG TAB PO ×2 (08:15→21:26)
[2018-06-07] MEDS: FERROUS FUMARATE (SR) TAB PO ×2 (08:15→21:26)
[2018-06-07] MEDS: GABAPENTIN 100 MG CAP PO ×2 (08:15→21:26)
[2018-06-07] MEDS: ALLOPURINOL 100 MG TAB PO (08:15)
[2018-06-07] MEDS: MAGNESIUM OXIDE 400 MG TAB PO ×2 (08:15→21:28)
[2018-06-07] MEDS: COLLAGENASE 5 GM (UD JAR) TOP ×2 (08:16→08:18)
[2018-06-07] MEDS: RIFAMPIN 300 MG CAP PO (08:16)
[2018-06-07] MEDS: BACLOFEN 10 MG TAB PO ×3 (08:16→21:26)
[2018-06-07] MEDS: DULOXETINE 30 MG CAP DR PO (08:16)
[2018-06-07] MEDS: NYSTATIN 15 GM POWDER BTL TOP ×2 (08:16→21:29)
[2018-06-07] MEDS: HYDROCORTISONE 1% 28 GM CR TOP ×2 (08:16→21:29)
[2018-06-07] MEDS: FOLIC ACID 1 MG TAB PO (08:16)
[2018-06-07] MEDS: VITAMIN A & D 5 GM OINT PACKET TOP ×2 (08:16→21:25)
[2018-06-07] MEDS: SODIUM HYPOCHLORITE (1/40) 1 APPLIC BTL IRR (08:17)
[2018-06-07] MEDS: BALSAM PERU/CASTOR OIL 60 GM TUBE TOP (08:18)
[2018-06-07] MEDS: HYDROCODONE/APAP (5/325) TAB PO ×2 (11:00→18:54)
[2018-06-07] MEDS: EPOETIN 10000 UNITS/1 ML INJ (ESRD) SC (16:06)
[2018-06-07] MEDS: ZONISAMIDE 100 MG CAP PO (21:26)
[2018-06-07] MEDS: RISPERIDONE 1 MG TAB PO (21:28)
[2018-06-08] MEDS: morphine 2 MG INJ IV ×2 (01:50→08:59)
[2018-06-08] MEDS: ARTIFICIAL TEARS 15 ML OPH BOTH EYES ×3 (05:45→21:14)
[2018-06-08] MEDS: LEVOFLOXACIN 500 MG TAB PO (05:45)
[2018-06-08 07:12] LABS: ADD MAN DIFF? NO
[2018-06-08 07:19] LABS: EOSINOPHILS # 0.4 10^3/ul (0.0-0.5); EOSINOPHILS % 9.4 % (0.0-7.0); HEMATOCRIT 27.1 % (42.0-52.0); HEMOGLOBIN 8.6 g/dl (14.0-18.0); LYMPHOCYTES # 1.2 10^3/ul (0.8-2.9); MEAN CORPUSCULAR HEMOGLOBIN 25.8 pg (29.0-33.0); MEAN CORPUSCULAR HGB CONC 31.7 g/dl (32.0-37.0); MEAN CORPUSCULAR VOLUME 81.4 fl (82.0-101.0); MONOCYTE # 0.5 10^3/ul (0.3-0.9); MONOCYTES % 13.6 % (0.0-11.0); NEUTROPHIL # 1.7 10^3/ul (1.6-7.5); NEUTROPHILS % 43.5 % (39.0-77.0); PLATELET COUNT 346 10^3/UL (140-415); RED BLOOD COUNT 3.33 10^6/ul (4.70-6.10); RED CELL DISTRIBUTION WIDTH 16.5 % (11.5-14.5)
[2018-06-08 07:19] LABS: WHITE BLOOD COUNT 3.8 10^3/ul (4.8-10.8)
[2018-06-08 07:47] LABS: ALANINE AMINOTRANSFERASE 7 IU/L (13-69); ALBUMIN 3.2 g/dl (3.3-4.9); ALBUMIN/GLOBULIN RATIO 0.91; ALKALINE PHOSPHATASE 109 IU/L (42-121); ANION GAP 9 (5-13); ASPARTATE AMINO TRANSFERASE 19 IU/L (15-46); BILIRUBIN,INDIRECT 0.3 mg/dl (0-1.1); BILIRUBIN,TOTAL 0.3 mg/dl (0.2-1.3); BLOOD UREA NITROGEN 19 mg/dl (7-20); CARBON DIOXIDE 21 mmol/L (21-31); CHLORIDE 106 mmol/L (97-110); CREATININE 0.77 mg/dl (0.61-1.24); Estimated GFR > 60 mL/min (>60); GLUCOSE 88 mg/dl (70-220); POTASSIUM 4.3 mmol/L (3.5-5.1); SODIUM 136 mmol/L (135-144); TOTAL PROTEIN 6.7 g/dl (6.1-8.1)
[2018-06-08] MEDS: SODIUM HYPOCHLORITE (1/40) 1 APPLIC BTL IRR (08:56)
[2018-06-08] MEDS: ENOXAPARIN 40 MG/0.4 ML SYG SC (08:57)
[2018-06-08] MEDS: DOCUSATE SODIUM 100 MG CAP PO ×2 (09:00→21:15)
[2018-06-08] MEDS: DULOXETINE 30 MG CAP DR PO (09:00)
[2018-06-08] MEDS: COLLAGENASE 5 GM (UD JAR) TOP ×2 (09:00)
[2018-06-08] MEDS: VITAMIN A & D 5 GM OINT PACKET TOP ×2 (09:00→21:15)
[2018-06-08] MEDS: ISONIAZID 300 MG TAB PO (09:01)
[2018-06-08] MEDS: MAGNESIUM OXIDE 400 MG TAB PO ×2 (09:01→21:15)
[2018-06-08] MEDS: FOLIC ACID 1 MG TAB PO (09:01)
[2018-06-08] MEDS: BACLOFEN 10 MG TAB PO ×3 (09:01→21:15)
[2018-06-08] MEDS: PYRIDOXINE 50 MG TAB PO (09:01)
[2018-06-08] MEDS: ALLOPURINOL 100 MG TAB PO (09:01)
[2018-06-08] MEDS: GABAPENTIN 100 MG CAP PO ×2 (09:01→21:15)
[2018-06-08] MEDS: FAMOTIDINE 20 MG TAB PO ×2 (09:01→21:15)
[2018-06-08] MEDS: FERROUS FUMARATE (SR) TAB PO ×2 (09:01→21:15)
[2018-06-08] MEDS: NYSTATIN 15 GM POWDER BTL TOP ×2 (09:02→21:16)
[2018-06-08] MEDS: RIFAMPIN 300 MG CAP PO (09:02)
[2018-06-08] MEDS: BALSAM PERU/CASTOR OIL 60 GM TUBE TOP (09:02)
[2018-06-08] MEDS: HYDROCORTISONE 1% 28 GM CR TOP ×2 (09:02→21:53)
[2018-06-08 09:53] LABS: ERYTHROCYTE SEDIMENTATION RATE 105 mm/Hr (0-20)
[2018-06-08] MEDS: HYDROCODONE/APAP (5/325) TAB PO ×2 (10:37→19:10)
[2018-06-08] MEDS: ZONISAMIDE 100 MG CAP PO (21:14)
[2018-06-08] MEDS: RISPERIDONE 1 MG TAB PO (21:15)
[2018-06-09] MEDS: morphine 2 MG INJ IV ×3 (00:33→21:45)
[2018-06-09] MEDS: LEVOFLOXACIN 500 MG TAB PO (05:40)
[2018-06-09] MEDS: ARTIFICIAL TEARS 15 ML OPH BOTH EYES ×4 (05:41→21:45)
[2018-06-09] MEDS: ENOXAPARIN 40 MG/0.4 ML SYG SC (09:32)
[2018-06-09] MEDS: HYDROCODONE/APAP (5/325) TAB PO ×2 (09:38→18:25)
[2018-06-09] MEDS: DULOXETINE 30 MG CAP DR PO (09:39)
[2018-06-09] MEDS: FERROUS FUMARATE (SR) TAB PO ×2 (09:39→21:35)
[2018-06-09] MEDS: COLLAGENASE 5 GM (UD JAR) TOP ×2 (09:39)
[2018-06-09] MEDS: DOCUSATE SODIUM 100 MG CAP PO ×3 (09:40→21:44)
[2018-06-09] MEDS: ALLOPURINOL 100 MG TAB PO (09:40)
[2018-06-09] MEDS: MAGNESIUM OXIDE 400 MG TAB PO ×2 (09:40→21:37)
[2018-06-09] MEDS: RIFAMPIN 300 MG CAP PO (09:40)
[2018-06-09] MEDS: PYRIDOXINE 50 MG TAB PO (09:40)
[2018-06-09] MEDS: FOLIC ACID 1 MG TAB PO (09:40)
[2018-06-09] MEDS: BACLOFEN 10 MG TAB PO ×3 (09:40→21:35)
[2018-06-09] MEDS: GABAPENTIN 100 MG CAP PO ×2 (09:41→21:37)
[2018-06-09] MEDS: FAMOTIDINE 20 MG TAB PO ×2 (09:41→21:35)
[2018-06-09] MEDS: ISONIAZID 300 MG TAB PO (09:41)
[2018-06-09] MEDS: NYSTATIN 15 GM POWDER BTL TOP ×2 (09:59→21:38)
[2018-06-09] MEDS: BALSAM PERU/CASTOR OIL 60 GM TUBE TOP (09:59)
[2018-06-09] MEDS: VITAMIN A & D 5 GM OINT PACKET TOP ×2 (10:00→21:35)
[2018-06-09] MEDS: HYDROCORTISONE 1% 28 GM CR TOP ×2 (10:01→21:38)
[2018-06-09] MEDS: SODIUM HYPOCHLORITE (1/40) 1 APPLIC BTL IRR (10:09)
[2018-06-09] MEDS: ZONISAMIDE 100 MG CAP PO (21:35)
[2018-06-09] MEDS: RISPERIDONE 1 MG TAB PO (21:35)
[2018-06-10] MEDS: morphine 2 MG INJ IV ×3 (01:48→19:49)
[2018-06-10] MEDS: ARTIFICIAL TEARS 15 ML OPH BOTH EYES ×3 (05:22→22:00)
[2018-06-10] MEDS: LEVOFLOXACIN 500 MG TAB PO (05:22)
[2018-06-10] MEDS: ENOXAPARIN 40 MG/0.4 ML SYG SC (09:31)
[2018-06-10] MEDS: RIFAMPIN 300 MG CAP PO (09:32)
[2018-06-10] MEDS: PYRIDOXINE 50 MG TAB PO (09:32)
[2018-06-10] MEDS: FERROUS FUMARATE (SR) TAB PO ×2 (09:33→21:57)
[2018-06-10] MEDS: ISONIAZID 300 MG TAB PO (09:33)
[2018-06-10] MEDS: BACLOFEN 10 MG TAB PO ×3 (09:33→21:56)
[2018-06-10] MEDS: DULOXETINE 30 MG CAP DR PO (09:33)
[2018-06-10] MEDS: FAMOTIDINE 20 MG TAB PO ×2 (09:33→21:56)
[2018-06-10] MEDS: DOCUSATE SODIUM 100 MG CAP PO ×2 (09:33→21:56)
[2018-06-10] MEDS: FOLIC ACID 1 MG TAB PO (09:33)
[2018-06-10] MEDS: MAGNESIUM OXIDE 400 MG TAB PO ×2 (09:34→21:58)
[2018-06-10] MEDS: ALLOPURINOL 100 MG TAB PO (09:34)
[2018-06-10] MEDS: GABAPENTIN 100 MG CAP PO ×2 (09:34→21:56)
[2018-06-10] MEDS: VITAMIN A & D 5 GM OINT PACKET TOP ×2 (09:42→21:59)
[2018-06-10] MEDS: BALSAM PERU/CASTOR OIL 60 GM TUBE TOP (09:42)
[2018-06-10] MEDS: NYSTATIN 15 GM POWDER BTL TOP ×2 (09:43→21:59)
[2018-06-10] MEDS: HYDROCORTISONE 1% 28 GM CR TOP ×2 (09:44→21:59)
[2018-06-10] MEDS: COLLAGENASE 5 GM (UD JAR) TOP ×2 (09:48)
[2018-06-10] MEDS: SODIUM HYPOCHLORITE (1/40) 1 APPLIC BTL IRR (09:49)
[2018-06-10] MEDS: HYDROCODONE/APAP (5/325) TAB PO (12:55)
[2018-06-10 16:17] LABS: NIL 0.08 IU/mL; QUANTIFERON(R)-TB GOLD NEGATIVE (NEGATIVE); TB-NIL 0.04 IU/mL
[2018-06-10] MEDS: ZONISAMIDE 100 MG CAP PO (21:57)
[2018-06-10] MEDS: RISPERIDONE 1 MG TAB PO (21:58)
[2018-06-11] MEDS: ARTIFICIAL TEARS 15 ML OPH BOTH EYES ×3 (05:28→20:39)
[2018-06-11] MEDS: LEVOFLOXACIN 500 MG TAB PO (05:28)
[2018-06-11] MEDS: HYDROCODONE/APAP (5/325) TAB PO ×2 (06:07→23:14)
[2018-06-11] MEDS: BACLOFEN 10 MG TAB PO ×3 (08:40→20:35)
[2018-06-11] MEDS: ENOXAPARIN 40 MG/0.4 ML SYG SC (08:41)
[2018-06-11] MEDS: ALLOPURINOL 100 MG TAB PO (08:41)
[2018-06-11] MEDS: RIFAMPIN 300 MG CAP PO (08:41)
[2018-06-11] MEDS: DOCUSATE SODIUM 100 MG CAP PO ×2 (08:41→20:39)
[2018-06-11] MEDS: PYRIDOXINE 50 MG TAB PO (08:42)
[2018-06-11] MEDS: DULOXETINE 30 MG CAP DR PO (08:42)
[2018-06-11] MEDS: FOLIC ACID 1 MG TAB PO (08:42)
[2018-06-11] MEDS: MAGNESIUM OXIDE 400 MG TAB PO ×2 (08:42→20:34)
[2018-06-11] MEDS: GABAPENTIN 100 MG CAP PO ×2 (08:42→20:35)
[2018-06-11] MEDS: ISONIAZID 300 MG TAB PO (08:42)
[2018-06-11] MEDS: NYSTATIN 15 GM POWDER BTL TOP ×2 (08:43→20:43)
[2018-06-11] MEDS: SODIUM HYPOCHLORITE (1/40) 1 APPLIC BTL IRR (08:43)
[2018-06-11] MEDS: BALSAM PERU/CASTOR OIL 60 GM TUBE TOP (08:44)
[2018-06-11] MEDS: COLLAGENASE 5 GM (UD JAR) TOP ×2 (08:44)
[2018-06-11] MEDS: VITAMIN A & D 5 GM OINT PACKET TOP ×2 (08:44→20:54)
[2018-06-11] MEDS: HYDROCORTISONE 1% 28 GM CR TOP ×2 (08:44→20:43)
[2018-06-11] MEDS: FERROUS FUMARATE (SR) TAB PO ×2 (08:47→20:35)
[2018-06-11] MEDS: FAMOTIDINE 20 MG TAB PO ×2 (08:49→20:35)
[2018-06-11] MEDS: morphine 2 MG INJ IV ×2 (09:05→13:44)
[2018-06-11] MEDS: morphine LIQ (10 MG/5 ML) CUP PO (20:33)
[2018-06-11] MEDS: RISPERIDONE 1 MG TAB PO (20:35)
[2018-06-11] MEDS: ZONISAMIDE 100 MG CAP PO (20:35)
[2018-06-12] MEDS: LEVOFLOXACIN 500 MG TAB PO (05:53)
[2018-06-12] MEDS: ARTIFICIAL TEARS 15 ML OPH BOTH EYES ×3 (05:54→21:15)
[2018-06-12] MEDS: FAMOTIDINE 20 MG TAB PO ×2 (08:28→20:14)
[2018-06-12] MEDS: GABAPENTIN 100 MG CAP PO ×2 (08:28→20:14)
[2018-06-12] MEDS: DULOXETINE 30 MG CAP DR PO (08:28)
[2018-06-12] MEDS: morphine LIQ (10 MG/5 ML) CUP PO ×2 (08:28→21:17)
[2018-06-12] MEDS: ISONIAZID 300 MG TAB PO (08:28)
[2018-06-12] MEDS: PYRIDOXINE 50 MG TAB PO (08:28)
[2018-06-12] MEDS: FERROUS FUMARATE (SR) TAB PO ×2 (08:29→20:14)
[2018-06-12] MEDS: MAGNESIUM OXIDE 400 MG TAB PO ×2 (08:29→20:14)
[2018-06-12] MEDS: BACLOFEN 10 MG TAB PO ×3 (08:29→20:14)
[2018-06-12] MEDS: RIFAMPIN 300 MG CAP PO (08:29)
[2018-06-12] MEDS: DOCUSATE SODIUM 100 MG CAP PO ×2 (08:29→20:14)
[2018-06-12] MEDS: FOLIC ACID 1 MG TAB PO (08:29)
[2018-06-12] MEDS: ALLOPURINOL 100 MG TAB PO (08:29)
[2018-06-12] MEDS: ENOXAPARIN 40 MG/0.4 ML SYG SC (08:30)
[2018-06-12] MEDS: VITAMIN A & D 5 GM OINT PACKET TOP ×2 (08:31→20:15)
[2018-06-12] MEDS: BALSAM PERU/CASTOR OIL 60 GM TUBE TOP (08:31)
[2018-06-12] MEDS: HYDROCORTISONE 1% 28 GM CR TOP ×2 (08:32→20:15)
[2018-06-12] MEDS: COLLAGENASE 5 GM (UD JAR) TOP ×2 (08:32)
[2018-06-12] MEDS: NYSTATIN 15 GM POWDER BTL TOP ×2 (08:32→20:15)
[2018-06-12] MEDS: SODIUM HYPOCHLORITE (1/40) 1 APPLIC BTL IRR (08:32)
[2018-06-12] MEDS: HYDROCODONE/APAP (5/325) TAB PO (15:46)
[2018-06-12] MEDS: RISPERIDONE 1 MG TAB PO (20:14)
[2018-06-12] MEDS: ZONISAMIDE 100 MG CAP PO (21:14)
[2018-06-13] MEDS: HYDROCODONE/APAP (5/325) TAB PO ×2 (04:26→21:31)
[2018-06-13] MEDS: ARTIFICIAL TEARS 15 ML OPH BOTH EYES ×3 (05:24→21:29)
[2018-06-13 07:29] LABS: ADD MAN DIFF? NO
[2018-06-13 07:36] LABS: WHITE BLOOD COUNT 3.6 10^3/ul (4.8-10.8)
[2018-06-13 07:36] LABS: BASOPHILS % 1.1 % (0.0-2.0); EOSINOPHILS # 0.4 10^3/ul (0.0-0.5); EOSINOPHILS % 11.2 % (0.0-7.0); HEMATOCRIT 29.4 % (42.0-52.0); HEMOGLOBIN 9.3 g/dl (14.0-18.0); LYMPHOCYTES # 1.1 10^3/ul (0.8-2.9); MEAN CORPUSCULAR HGB CONC 31.6 g/dl (32.0-37.0); MEAN CORPUSCULAR VOLUME 82.1 fl (82.0-101.0); MEAN PLATELET VOLUME 8.4 fl (7.4-10.4); MONOCYTE # 0.4 10^3/ul (0.3-0.9); MONOCYTES % 12.4 % (0.0-11.0); NEUTROPHIL # 1.5 10^3/ul (1.6-7.5); PLATELET COUNT 344 10^3/UL (140-415); RED BLOOD COUNT 3.58 10^6/ul (4.70-6.10); RED CELL DISTRIBUTION WIDTH 17.1 % (11.5-14.5)
[2018-06-13 08:06] LABS: ANION GAP 11 (5-13); BLOOD UREA NITROGEN 17 mg/dl (7-20); CALCIUM 9.3 mg/dl (8.4-10.2); CARBON DIOXIDE 21 mmol/L (21-31); CHLORIDE 109 mmol/L (97-110); CREATININE 0.71 mg/dl (0.61-1.24); Estimated GFR > 60 mL/min (>60); GLUCOSE 88 mg/dl (70-220); POTASSIUM 4.3 mmol/L (3.5-5.1); SODIUM 141 mmol/L (135-144)
[2018-06-13 08:25] LABS: C-REACTIVE PROTEIN 2.3 mg/dl (0.0-0.9)
[2018-06-13 08:46] LABS: ERYTHROCYTE SEDIMENTATION RATE 100 mm/Hr (0-20)
[2018-06-13] MEDS: ENOXAPARIN 40 MG/0.4 ML SYG SC (09:09)
[2018-06-13] MEDS: FERROUS FUMARATE (SR) TAB PO ×2 (09:09→21:28)
[2018-06-13] MEDS: ISONIAZID 300 MG TAB PO (09:09)
[2018-06-13] MEDS: DULOXETINE 30 MG CAP DR PO (09:10)
[2018-06-13] MEDS: BACLOFEN 10 MG TAB PO ×3 (09:10→21:27)
[2018-06-13] MEDS: PYRIDOXINE 50 MG TAB PO (09:10)
[2018-06-13] MEDS: RIFAMPIN 300 MG CAP PO (09:10)
[2018-06-13] MEDS: GABAPENTIN 100 MG CAP PO ×2 (09:10→21:27)
[2018-06-13] MEDS: ALLOPURINOL 100 MG TAB PO (09:10)
[2018-06-13] MEDS: FAMOTIDINE 20 MG TAB PO ×2 (09:10→21:27)
[2018-06-13] MEDS: DOCUSATE SODIUM 100 MG CAP PO ×2 (09:10→21:28)
[2018-06-13] MEDS: FOLIC ACID 1 MG TAB PO (09:10)
[2018-06-13] MEDS: MAGNESIUM OXIDE 400 MG TAB PO ×2 (09:10→21:28)
[2018-06-13] MEDS: NYSTATIN 15 GM POWDER BTL TOP ×2 (09:11→21:30)
[2018-06-13] MEDS: COLLAGENASE 5 GM (UD JAR) TOP ×2 (09:11)
[2018-06-13] MEDS: VITAMIN A & D 5 GM OINT PACKET TOP ×2 (09:11→21:30)
[2018-06-13] MEDS: HYDROCORTISONE 1% 28 GM CR TOP ×2 (09:11→21:30)
[2018-06-13] MEDS: SODIUM HYPOCHLORITE (1/40) 1 APPLIC BTL IRR (09:11)
[2018-06-13] MEDS: BALSAM PERU/CASTOR OIL 60 GM TUBE TOP (09:11)
[2018-06-13] MEDS: SILVER NITRATE SWAB TOP (11:44)
[2018-06-13] MEDS: LEVOFLOXACIN 500MG/D5W (PMX) 100 ML IVPB (11:58)
[2018-06-13] MEDS: morphine LIQ (10 MG/5 ML) CUP PO (20:04)
[2018-06-13] MEDS: ZONISAMIDE 100 MG CAP PO (21:28)
[2018-06-13] MEDS: RISPERIDONE 1 MG TAB PO (21:44)
[2018-06-14] MEDS: morphine LIQ (10 MG/5 ML) CUP PO ×4 (00:41→22:40)
[2018-06-14] MEDS: ARTIFICIAL TEARS 15 ML OPH BOTH EYES ×3 (05:32→20:49)
[2018-06-14] MEDS: MAGNESIUM OXIDE 400 MG TAB PO ×2 (09:07→20:46)
[2018-06-14] MEDS: DOCUSATE SODIUM 100 MG CAP PO ×2 (09:07→20:47)
[2018-06-14] MEDS: FERROUS FUMARATE (SR) TAB PO ×2 (09:07→20:47)
[2018-06-14] MEDS: BACLOFEN 10 MG TAB PO ×3 (09:07→20:46)
[2018-06-14] MEDS: FOLIC ACID 1 MG TAB PO (09:07)
[2018-06-14] MEDS: DULOXETINE 30 MG CAP DR PO (09:07)
[2018-06-14] MEDS: ALLOPURINOL 100 MG TAB PO (09:08)
[2018-06-14] MEDS: FAMOTIDINE 20 MG TAB PO ×2 (09:08→20:46)
[2018-06-14] MEDS: PYRIDOXINE 50 MG TAB PO (09:08)
[2018-06-14] MEDS: ENOXAPARIN 40 MG/0.4 ML SYG SC (09:08)
[2018-06-14] MEDS: GABAPENTIN 100 MG CAP PO ×2 (09:08→20:46)
[2018-06-14] MEDS: VITAMIN A & D 5 GM OINT PACKET TOP ×2 (09:23→21:00)
[2018-06-14] MEDS: COLLAGENASE 5 GM (UD JAR) TOP ×2 (09:23)
[2018-06-14] MEDS: BALSAM PERU/CASTOR OIL 60 GM TUBE TOP (09:23)
[2018-06-14] MEDS: HYDROCORTISONE 1% 28 GM CR TOP ×2 (09:23→20:59)
[2018-06-14] MEDS: SODIUM HYPOCHLORITE (1/40) 1 APPLIC BTL IRR (09:23)
[2018-06-14] MEDS: NYSTATIN 15 GM POWDER BTL TOP ×2 (09:23→21:00)
[2018-06-14] MEDS: LEVOFLOXACIN 500MG/D5W (PMX) 100 ML IVPB (10:52)
[2018-06-14] MEDS: HYDROCODONE/APAP (5/325) TAB PO (20:46)
[2018-06-14] MEDS: RISPERIDONE 1 MG TAB PO (20:46)
[2018-06-14] MEDS: ZONISAMIDE 100 MG CAP PO (20:47)
[2018-06-15] MEDS: ARTIFICIAL TEARS 15 ML OPH BOTH EYES ×3 (05:42→22:17)
[2018-06-15] MEDS: morphine LIQ (10 MG/5 ML) CUP PO ×3 (05:46→22:15)
[2018-06-15] MEDS: SODIUM HYPOCHLORITE (1/40) 1 APPLIC BTL IRR (09:47)
[2018-06-15] MEDS: DOCUSATE SODIUM 100 MG CAP PO ×2 (09:48→22:17)
[2018-06-15] MEDS: FERROUS FUMARATE (SR) TAB PO ×2 (09:50→22:17)
[2018-06-15] MEDS: MAGNESIUM OXIDE 400 MG TAB PO ×2 (09:50→22:17)
[2018-06-15] MEDS: FOLIC ACID 1 MG TAB PO (09:50)
[2018-06-15] MEDS: DULOXETINE 30 MG CAP DR PO (09:50)
[2018-06-15] MEDS: PYRIDOXINE 50 MG TAB PO (09:51)
[2018-06-15] MEDS: ALLOPURINOL 100 MG TAB PO (09:51)
[2018-06-15] MEDS: FAMOTIDINE 20 MG TAB PO ×2 (09:51→22:17)
[2018-06-15] MEDS: GABAPENTIN 100 MG CAP PO ×2 (09:51→22:16)
[2018-06-15] MEDS: BACLOFEN 10 MG TAB PO ×3 (09:51→22:16)
[2018-06-15] MEDS: ENOXAPARIN 40 MG/0.4 ML SYG SC (09:54)
[2018-06-15] MEDS: NYSTATIN 15 GM POWDER BTL TOP ×2 (09:56→22:19)
[2018-06-15] MEDS: COLLAGENASE 5 GM (UD JAR) TOP ×2 (09:56→09:57)
[2018-06-15] MEDS: HYDROCORTISONE 1% 28 GM CR TOP ×2 (09:56→22:18)
[2018-06-15] MEDS: VITAMIN A & D 5 GM OINT PACKET TOP ×2 (09:57→22:18)
[2018-06-15] MEDS: BALSAM PERU/CASTOR OIL 60 GM TUBE TOP (09:57)
[2018-06-15] MEDS: LEVOFLOXACIN 500MG/D5W (PMX) 100 ML IVPB (11:12)
[2018-06-15] MEDS: HYDROCODONE/APAP (5/325) TAB PO (16:00)
[2018-06-15] MEDS: ZONISAMIDE 100 MG CAP PO (22:16)
[2018-06-15] MEDS: RISPERIDONE 1 MG TAB PO (22:16)
[2018-06-16] MEDS: morphine LIQ (10 MG/5 ML) CUP PO ×3 (03:33→20:55)
[2018-06-16] MEDS: ARTIFICIAL TEARS 15 ML OPH BOTH EYES ×3 (05:12→22:49)
[2018-06-16] MEDS: HYDROCODONE/APAP (5/325) TAB PO (05:14)
[2018-06-16] MEDS: FOLIC ACID 1 MG TAB PO (09:50)
[2018-06-16] MEDS: DOCUSATE SODIUM 100 MG CAP PO ×2 (10:11→21:01)
[2018-06-16] MEDS: ALLOPURINOL 100 MG TAB PO ×2 (10:11→10:15)
[2018-06-16] MEDS: DULOXETINE 30 MG CAP DR PO (10:11)
[2018-06-16] MEDS: PYRIDOXINE 50 MG TAB PO (10:11)
[2018-06-16] MEDS: BACLOFEN 10 MG TAB PO ×3 (10:12→21:01)
[2018-06-16] MEDS: FERROUS FUMARATE (SR) TAB PO ×2 (10:12→10:15)
[2018-06-16] MEDS: ENOXAPARIN 40 MG/0.4 ML SYG SC (10:14)
[2018-06-16] MEDS: MAGNESIUM OXIDE 400 MG TAB PO ×2 (10:20→21:02)
[2018-06-16] MEDS: FAMOTIDINE 20 MG TAB PO ×2 (10:23→21:01)
[2018-06-16] MEDS: GABAPENTIN 100 MG CAP PO ×2 (10:23→21:02)
[2018-06-16] MEDS: COLLAGENASE 5 GM (UD JAR) TOP ×2 (10:48)
[2018-06-16] MEDS: VITAMIN A & D 5 GM OINT PACKET TOP ×2 (10:49→21:02)
[2018-06-16] MEDS: BALSAM PERU/CASTOR OIL 60 GM TUBE TOP (10:49)
[2018-06-16] MEDS: HYDROCORTISONE 1% 28 GM CR TOP ×2 (10:50→21:03)
[2018-06-16] MEDS: SODIUM HYPOCHLORITE (1/40) 1 APPLIC BTL IRR (10:50)
[2018-06-16] MEDS: NYSTATIN 15 GM POWDER BTL TOP ×2 (10:51→21:03)
[2018-06-16] MEDS: ZONISAMIDE 100 MG CAP PO (21:02)
[2018-06-16] MEDS: RISPERIDONE 1 MG TAB PO (21:07)
[2018-06-17] MEDS: ARTIFICIAL TEARS 15 ML OPH BOTH EYES ×3 (05:44→22:16)
[2018-06-17] MEDS: NYSTATIN 15 GM POWDER BTL TOP ×3 (09:00→21:03)
[2018-06-17] MEDS: COLLAGENASE 5 GM (UD JAR) TOP ×4 (09:00→16:18)
[2018-06-17] MEDS: HYDROCORTISONE 1% 28 GM CR TOP ×2 (09:00→21:03)
[2018-06-17] MEDS: BALSAM PERU/CASTOR OIL 60 GM TUBE TOP ×2 (09:00→16:18)
[2018-06-17] MEDS: SODIUM HYPOCHLORITE (1/40) 1 APPLIC BTL IRR ×2 (09:00→16:18)
[2018-06-17] MEDS: morphine LIQ (10 MG/5 ML) CUP PO ×2 (09:47→20:58)
[2018-06-17] MEDS: DOCUSATE SODIUM 100 MG CAP PO ×2 (09:49→21:01)
[2018-06-17] MEDS: FAMOTIDINE 20 MG TAB PO ×2 (09:50→21:01)
[2018-06-17] MEDS: FOLIC ACID 1 MG TAB PO (09:50)
[2018-06-17] MEDS: DULOXETINE 30 MG CAP DR PO (09:50)
[2018-06-17] MEDS: BACLOFEN 10 MG TAB PO ×3 (09:50→21:00)
[2018-06-17] MEDS: MAGNESIUM OXIDE 400 MG TAB PO ×2 (09:50→21:00)
[2018-06-17] MEDS: GABAPENTIN 100 MG CAP PO ×2 (09:50→21:00)
[2018-06-17] MEDS: PYRIDOXINE 50 MG TAB PO (09:51)
[2018-06-17] MEDS: VITAMIN A & D 5 GM OINT PACKET TOP ×2 (09:52→21:01)
[2018-06-17] MEDS: ENOXAPARIN 40 MG/0.4 ML SYG SC (09:53)
[2018-06-17] MEDS: HYDROCODONE/APAP (5/325) TAB PO (12:50)
[2018-06-17] MEDS: RISPERIDONE 1 MG TAB PO (21:01)
[2018-06-17] MEDS: ZONISAMIDE 100 MG CAP PO (21:01)
[2018-06-18] MEDS: morphine LIQ (10 MG/5 ML) CUP PO (00:57)
[2018-06-18] MEDS: ARTIFICIAL TEARS 15 ML OPH BOTH EYES ×3 (05:52→21:22)
[2018-06-18] MEDS: HYDROCODONE/APAP (5/325) TAB PO ×2 (05:57→20:24)
[2018-06-18] MEDS: BALSAM PERU/CASTOR OIL 60 GM TUBE TOP (09:00)
[2018-06-18] MEDS: COLLAGENASE 5 GM (UD JAR) TOP ×2 (09:17)
[2018-06-18] MEDS: VITAMIN A & D 5 GM OINT PACKET TOP ×2 (09:17→20:16)
[2018-06-18] MEDS: MAGNESIUM OXIDE 400 MG TAB PO ×2 (09:18→20:16)
[2018-06-18] MEDS: DOCUSATE SODIUM 100 MG CAP PO ×2 (09:18→20:15)
[2018-06-18] MEDS: FAMOTIDINE 20 MG TAB PO ×2 (09:18→20:16)
[2018-06-18] MEDS: BACLOFEN 10 MG TAB PO ×3 (09:18→20:16)
[2018-06-18] MEDS: GABAPENTIN 100 MG CAP PO ×2 (09:18→20:16)
[2018-06-18] MEDS: ALLOPURINOL 100 MG TAB PO (09:18)
[2018-06-18] MEDS: FOLIC ACID 1 MG TAB PO (09:18)
[2018-06-18] MEDS: DULOXETINE 30 MG CAP DR PO (09:18)
[2018-06-18] MEDS: PYRIDOXINE 50 MG TAB PO (09:19)
[2018-06-18] MEDS: ENOXAPARIN 40 MG/0.4 ML SYG SC (09:21)
[2018-06-18] MEDS: HYDROCORTISONE 1% 28 GM CR TOP ×2 (09:23→20:18)
[2018-06-18] MEDS: NYSTATIN 15 GM POWDER BTL TOP ×2 (09:23→20:17)
[2018-06-18] MEDS: SODIUM HYPOCHLORITE (1/40) 1 APPLIC BTL IRR (09:25)
[2018-06-18] MEDS: ZONISAMIDE 100 MG CAP PO (20:15)
[2018-06-18] MEDS: RISPERIDONE 1 MG TAB PO (20:16)
[2018-06-19] MEDS: morphine LIQ (10 MG/5 ML) CUP PO ×4 (02:40→21:58)
[2018-06-19] MEDS: HYDROCODONE/APAP (5/325) TAB PO ×2 (05:57→13:34)
[2018-06-19] MEDS: ARTIFICIAL TEARS 15 ML OPH BOTH EYES ×3 (05:58→22:06)
[2018-06-19] MEDS: COLLAGENASE 5 GM (UD JAR) TOP ×2 (09:00→10:15)
[2018-06-19] MEDS: GABAPENTIN 100 MG CAP PO ×2 (09:48→21:59)
[2018-06-19] MEDS: VITAMIN A & D 5 GM OINT PACKET TOP ×2 (09:49→22:06)
[2018-06-19] MEDS: FOLIC ACID 1 MG TAB PO (09:49)
[2018-06-19] MEDS: DOCUSATE SODIUM 100 MG CAP PO ×2 (09:49→21:59)
[2018-06-19] MEDS: PYRIDOXINE 50 MG TAB PO (09:49)
[2018-06-19] MEDS: DULOXETINE 30 MG CAP DR PO (09:49)
[2018-06-19] MEDS: FAMOTIDINE 20 MG TAB PO ×2 (09:49→21:59)
[2018-06-19] MEDS: BACLOFEN 10 MG TAB PO ×3 (09:49→22:06)
[2018-06-19] MEDS: ALLOPURINOL 100 MG TAB PO (09:50)
[2018-06-19] MEDS: MAGNESIUM OXIDE 400 MG TAB PO ×2 (09:50→21:59)
[2018-06-19] MEDS: ENOXAPARIN 40 MG/0.4 ML SYG SC (09:56)
[2018-06-19] MEDS: SODIUM HYPOCHLORITE (1/40) 1 APPLIC BTL IRR (10:14)
[2018-06-19] MEDS: HYDROCORTISONE 1% 28 GM CR TOP ×2 (10:15→22:08)
[2018-06-19] MEDS: NYSTATIN 15 GM POWDER BTL TOP ×2 (10:15→22:08)
[2018-06-19] MEDS: BALSAM PERU/CASTOR OIL 60 GM TUBE TOP (10:16)
[2018-06-19 13:51] LABS: PROCALCITONIN 0.13 ng/mL (<0.10)
[2018-06-19] MEDS: ZONISAMIDE 100 MG CAP PO (21:54)
[2018-06-19] MEDS: RISPERIDONE 1 MG TAB PO (21:59)
[2018-06-20] MEDS: ARTIFICIAL TEARS 15 ML OPH BOTH EYES ×3 (05:34→21:45)
[2018-06-20] MEDS: HYDROCODONE/APAP (5/325) TAB PO ×2 (05:35→21:45)
[2018-06-20] MEDS: ALLOPURINOL 100 MG TAB PO (09:03)
[2018-06-20] MEDS: DOCUSATE SODIUM 100 MG CAP PO ×2 (09:03→20:53)
[2018-06-20] MEDS: VITAMIN A & D 5 GM OINT PACKET TOP ×2 (09:03→20:54)
[2018-06-20] MEDS: COLLAGENASE 5 GM (UD JAR) TOP ×2 (09:03→09:08)
[2018-06-20] MEDS: GABAPENTIN 100 MG CAP PO ×2 (09:04→20:53)
[2018-06-20] MEDS: PYRIDOXINE 50 MG TAB PO (09:04)
[2018-06-20] MEDS: FOLIC ACID 1 MG TAB PO (09:04)
[2018-06-20] MEDS: FAMOTIDINE 20 MG TAB PO ×2 (09:04→20:53)
[2018-06-20] MEDS: MAGNESIUM OXIDE 400 MG TAB PO ×2 (09:04→20:53)
[2018-06-20] MEDS: DULOXETINE 30 MG CAP DR PO (09:04)
[2018-06-20] MEDS: BACLOFEN 10 MG TAB PO ×3 (09:05→20:53)
[2018-06-20] MEDS: SODIUM HYPOCHLORITE (1/40) 1 APPLIC BTL IRR (09:05)
[2018-06-20] MEDS: ENOXAPARIN 40 MG/0.4 ML SYG SC (09:06)
[2018-06-20] MEDS: HYDROCORTISONE 1% 28 GM CR TOP ×2 (09:07→20:56)
[2018-06-20] MEDS: NYSTATIN 15 GM POWDER BTL TOP ×2 (09:07→20:57)
[2018-06-20] MEDS: BALSAM PERU/CASTOR OIL 60 GM TUBE TOP (09:08)
[2018-06-20] MEDS: LEVOFLOXACIN 500MG/D5W (PMX) 100 ML IVPB (09:57)
[2018-06-20] MEDS: DIPHENHYDRAMINE 50 MG INJ IV (09:57)
[2018-06-20] MEDS: RISPERIDONE 1 MG TAB PO (20:53)
[2018-06-20] MEDS: ZONISAMIDE 100 MG CAP PO (20:53)
[2018-06-21] MEDS: ARTIFICIAL TEARS 15 ML OPH BOTH EYES ×3 (05:35→22:21)
[2018-06-21] MEDS: morphine LIQ (10 MG/5 ML) CUP PO ×2 (05:43→13:36)
[2018-06-21 05:57] LABS: ADD MAN DIFF? NO
[2018-06-21 06:05] LABS: WHITE BLOOD COUNT 4.5 10^3/ul (4.8-10.8)
[2018-06-21 06:05] LABS: BASOPHILS % 0.7 % (0.0-2.0); EOSINOPHILS # 0.5 10^3/ul (0.0-0.5); EOSINOPHILS % 10.6 % (0.0-7.0); HEMATOCRIT 27.3 % (42.0-52.0); HEMOGLOBIN 8.5 g/dl (14.0-18.0); LYMPHOCYTES # 1.5 10^3/ul (0.8-2.9); LYMPHOCYTES % 33.2 % (15.0-51.0); MEAN CORPUSCULAR HEMOGLOBIN 25.6 pg (29.0-33.0); MEAN CORPUSCULAR HGB CONC 31.1 g/dl (32.0-37.0); MEAN CORPUSCULAR VOLUME 82.2 fl (82.0-101.0); MONOCYTE # 0.6 10^3/ul (0.3-0.9); MONOCYTES % 13.7 % (0.0-11.0); NEUTROPHIL # 1.9 10^3/ul (1.6-7.5); NEUTROPHILS % 41.4 % (39.0-77.0); PLATELET COUNT 278 10^3/UL (140-415); RED BLOOD COUNT 3.32 10^6/ul (4.70-6.10); RED CELL DISTRIBUTION WIDTH 16.8 % (11.5-14.5)
[2018-06-21 06:32] LABS: ANION GAP 9 (5-13); BLOOD UREA NITROGEN 23 mg/dl (7-20); C-REACTIVE PROTEIN 1.7 mg/dl (0.0-0.9); CALCIUM 9.1 mg/dl (8.4-10.2); CARBON DIOXIDE 23 mmol/L (21-31); CHLORIDE 105 mmol/L (97-110); CREATININE 0.79 mg/dl (0.61-1.24); Estimated GFR > 60 mL/min (>60); GLUCOSE 111 mg/dl (70-220); POTASSIUM 4.1 mmol/L (3.5-5.1); SODIUM 137 mmol/L (135-144)
[2018-06-21] MEDS: COLLAGENASE 5 GM (UD JAR) TOP ×2 (09:00→09:14)
[2018-06-21] MEDS: BACLOFEN 10 MG TAB PO ×3 (09:14→20:36)
[2018-06-21] MEDS: ALLOPURINOL 100 MG TAB PO (09:15)
[2018-06-21] MEDS: HYDROCODONE/APAP (5/325) TAB PO ×2 (09:15→18:20)
[2018-06-21] MEDS: GABAPENTIN 100 MG CAP PO ×2 (09:15→20:36)
[2018-06-21] MEDS: VITAMIN A & D 5 GM OINT PACKET TOP ×2 (09:16→20:37)
[2018-06-21] MEDS: FAMOTIDINE 20 MG TAB PO ×2 (09:16→20:36)
[2018-06-21] MEDS: MAGNESIUM OXIDE 400 MG TAB PO ×2 (09:16→20:37)
[2018-06-21] MEDS: PYRIDOXINE 50 MG TAB PO (09:16)
[2018-06-21] MEDS: DULOXETINE 30 MG CAP DR PO (09:16)
[2018-06-21] MEDS: FOLIC ACID 1 MG TAB PO (09:16)
[2018-06-21] MEDS: DOCUSATE SODIUM 100 MG CAP PO ×2 (09:16→20:37)
[2018-06-21] MEDS: ENOXAPARIN 40 MG/0.4 ML SYG SC (09:17)
[2018-06-21] MEDS: BALSAM PERU/CASTOR OIL 60 GM TUBE TOP (09:18)
[2018-06-21] MEDS: LEVOFLOXACIN 500MG/D5W (PMX) 100 ML IVPB (09:18)
[2018-06-21] MEDS: HYDROCORTISONE 1% 28 GM CR TOP ×2 (09:18→20:38)
[2018-06-21] MEDS: NYSTATIN 15 GM POWDER BTL TOP ×2 (09:18→20:39)
[2018-06-21] MEDS: SODIUM HYPOCHLORITE (1/40) 1 APPLIC BTL IRR (09:18)
[2018-06-21] MEDS: ZONISAMIDE 100 MG CAP PO (20:36)
[2018-06-21] MEDS: RISPERIDONE 1 MG TAB PO (20:37)
[2018-06-22] MEDS: ARTIFICIAL TEARS 15 ML OPH BOTH EYES ×3 (05:32→21:12)
[2018-06-22] MEDS: morphine LIQ (10 MG/5 ML) CUP PO (05:38)
[2018-06-22] MEDS: HYDROCORTISONE 1% 28 GM CR TOP ×2 (09:00→21:11)
[2018-06-22] MEDS: COLLAGENASE 5 GM (UD JAR) TOP ×2 (09:00)
[2018-06-22] MEDS: LEVOFLOXACIN 500MG/D5W (PMX) 100 ML IVPB (10:00)
[2018-06-22] MEDS: PYRIDOXINE 50 MG TAB PO (10:01)
[2018-06-22] MEDS: FOLIC ACID 1 MG TAB PO (10:01)
[2018-06-22] MEDS: MAGNESIUM OXIDE 400 MG TAB PO ×2 (10:01→21:11)
[2018-06-22] MEDS: FAMOTIDINE 20 MG TAB PO ×2 (10:01→21:11)
[2018-06-22] MEDS: DULOXETINE 30 MG CAP DR PO (10:02)
[2018-06-22] MEDS: BACLOFEN 10 MG TAB PO ×3 (10:02→21:11)
[2018-06-22] MEDS: GABAPENTIN 100 MG CAP PO ×2 (10:02→21:11)
[2018-06-22] MEDS: ALLOPURINOL 100 MG TAB PO (10:02)
[2018-06-22] MEDS: DOCUSATE SODIUM 100 MG CAP PO ×2 (10:02→21:11)
[2018-06-22] MEDS: ENOXAPARIN 40 MG/0.4 ML SYG SC (10:04)
[2018-06-22] MEDS: VITAMIN A & D 5 GM OINT PACKET TOP ×2 (10:05→21:11)
[2018-06-22] MEDS: NYSTATIN 15 GM POWDER BTL TOP ×2 (10:08→21:11)
[2018-06-22] MEDS: SODIUM HYPOCHLORITE (1/40) 1 APPLIC BTL IRR (10:08)
[2018-06-22] MEDS: BALSAM PERU/CASTOR OIL 60 GM TUBE TOP (10:09)
[2018-06-22] MEDS: HYDROCODONE/APAP (5/325) TAB PO ×2 (14:39→21:10)
[2018-06-22] MEDS: ZONISAMIDE 100 MG CAP PO (21:11)
[2018-06-22] MEDS: RISPERIDONE 1 MG TAB PO (21:11)
[2018-06-23] MEDS: HYDROCODONE/APAP (5/325) TAB PO ×3 (05:14→23:41)
[2018-06-23] MEDS: ARTIFICIAL TEARS 15 ML OPH BOTH EYES ×3 (05:15→20:53)
[2018-06-23] MEDS: SODIUM HYPOCHLORITE (1/40) 1 APPLIC BTL IRR (09:00)
[2018-06-23] MEDS: BALSAM PERU/CASTOR OIL 60 GM TUBE TOP (09:00)
[2018-06-23] MEDS: COLLAGENASE 5 GM (UD JAR) TOP ×2 (09:00)
[2018-06-23] MEDS: DOCUSATE SODIUM 100 MG CAP PO ×2 (09:41→20:53)
[2018-06-23] MEDS: BACLOFEN 10 MG TAB PO ×3 (09:42→20:53)
[2018-06-23] MEDS: GABAPENTIN 100 MG CAP PO ×2 (09:42→20:54)
[2018-06-23] MEDS: PYRIDOXINE 50 MG TAB PO (09:42)
[2018-06-23] MEDS: FOLIC ACID 1 MG TAB PO (09:42)
[2018-06-23] MEDS: MAGNESIUM OXIDE 400 MG TAB PO ×2 (09:42→20:54)
[2018-06-23] MEDS: ALLOPURINOL 100 MG TAB PO (09:42)
[2018-06-23] MEDS: DULOXETINE 30 MG CAP DR PO (09:42)
[2018-06-23] MEDS: FAMOTIDINE 20 MG TAB PO ×2 (09:42→20:53)
[2018-06-23] MEDS: VITAMIN A & D 5 GM OINT PACKET TOP ×2 (09:43→20:52)
[2018-06-23] MEDS: ENOXAPARIN 40 MG/0.4 ML SYG SC (09:46)
[2018-06-23] MEDS: HYDROCORTISONE 1% 28 GM CR TOP ×2 (10:08→21:01)
[2018-06-23] MEDS: NYSTATIN 15 GM POWDER BTL TOP ×2 (10:09→21:02)
[2018-06-23] MEDS: LEVOFLOXACIN 500MG/D5W (PMX) 100 ML IVPB (10:56)
[2018-06-23] MEDS: ZONISAMIDE 100 MG CAP PO (20:53)
[2018-06-23] MEDS: RISPERIDONE 1 MG TAB PO (20:58)
[2018-06-23] MEDS: morphine LIQ (10 MG/5 ML) CUP PO (20:59)
[2018-06-24] MEDS: ARTIFICIAL TEARS 15 ML OPH BOTH EYES ×3 (05:27→21:46)
[2018-06-24] MEDS: FOLIC ACID 1 MG TAB PO (09:03)
[2018-06-24] MEDS: VITAMIN A & D 5 GM OINT PACKET TOP ×2 (09:03→21:44)
[2018-06-24] MEDS: DULOXETINE 30 MG CAP DR PO (09:03)
[2018-06-24] MEDS: GABAPENTIN 100 MG CAP PO ×2 (09:03→21:46)
[2018-06-24] MEDS: FAMOTIDINE 20 MG TAB PO ×2 (09:03→21:46)
[2018-06-24] MEDS: ENOXAPARIN 40 MG/0.4 ML SYG SC (09:03)
[2018-06-24] MEDS: ALLOPURINOL 100 MG TAB PO (09:03)
[2018-06-24] MEDS: MAGNESIUM OXIDE 400 MG TAB PO ×2 (09:03→21:46)
[2018-06-24] MEDS: BACLOFEN 10 MG TAB PO ×3 (09:03→21:46)
[2018-06-24] MEDS: PYRIDOXINE 50 MG TAB PO (09:05)
[2018-06-24] MEDS: DOCUSATE SODIUM 100 MG CAP PO ×2 (09:05→21:46)
[2018-06-24] MEDS: COLLAGENASE 5 GM (UD JAR) TOP ×2 (09:06)
[2018-06-24] MEDS: HYDROCORTISONE 1% 28 GM CR TOP ×2 (09:06→21:45)
[2018-06-24] MEDS: SODIUM HYPOCHLORITE (1/40) 1 APPLIC BTL IRR (09:06)
[2018-06-24] MEDS: NYSTATIN 15 GM POWDER BTL TOP ×2 (09:06→21:45)
[2018-06-24] MEDS: BALSAM PERU/CASTOR OIL 60 GM TUBE TOP (09:07)
[2018-06-24] MEDS: LEVOFLOXACIN 500MG/D5W (PMX) 100 ML IVPB (09:38)
[2018-06-24] MEDS: HYDROCODONE/APAP (5/325) TAB PO ×2 (15:03→21:53)
[2018-06-24] MEDS: RISPERIDONE 1 MG TAB PO (21:46)
[2018-06-24] MEDS: ZONISAMIDE 100 MG CAP PO (21:46)
[2018-06-25] MEDS: morphine LIQ (10 MG/5 ML) CUP PO (02:03)
[2018-06-25] MEDS: ARTIFICIAL TEARS 15 ML OPH BOTH EYES ×3 (05:13→22:13)
[2018-06-25] MEDS: HYDROCORTISONE 1% 28 GM CR TOP ×2 (09:00→20:13)
[2018-06-25] MEDS: COLLAGENASE 5 GM (UD JAR) TOP ×2 (09:00→09:20)
[2018-06-25] MEDS: NYSTATIN 15 GM POWDER BTL TOP ×2 (09:00→20:13)
[2018-06-25] MEDS: ENOXAPARIN 40 MG/0.4 ML SYG SC (09:18)
[2018-06-25] MEDS: FOLIC ACID 1 MG TAB PO (09:19)
[2018-06-25] MEDS: BACLOFEN 10 MG TAB PO ×3 (09:19→20:04)
[2018-06-25] MEDS: FAMOTIDINE 20 MG TAB PO ×2 (09:19→20:12)
[2018-06-25] MEDS: DOCUSATE SODIUM 100 MG CAP PO ×2 (09:19→20:03)
[2018-06-25] MEDS: LEVOFLOXACIN 500MG/D5W (PMX) 100 ML IVPB (09:19)
[2018-06-25] MEDS: ALLOPURINOL 100 MG TAB PO (09:19)
[2018-06-25] MEDS: DULOXETINE 30 MG CAP DR PO (09:20)
[2018-06-25] MEDS: PYRIDOXINE 50 MG TAB PO (09:20)
[2018-06-25] MEDS: MAGNESIUM OXIDE 400 MG TAB PO ×2 (09:20→20:04)
[2018-06-25] MEDS: GABAPENTIN 100 MG CAP PO ×2 (09:20→20:04)
[2018-06-25] MEDS: SODIUM HYPOCHLORITE (1/40) 1 APPLIC BTL IRR (09:21)
[2018-06-25] MEDS: VITAMIN A & D 5 GM OINT PACKET TOP ×2 (09:21→20:04)
[2018-06-25] MEDS: BALSAM PERU/CASTOR OIL 60 GM TUBE TOP (09:21)
[2018-06-25] MEDS: HYDROCODONE/APAP (5/325) TAB PO ×2 (09:36→20:01)
[2018-06-25] MEDS: RISPERIDONE 1 MG TAB PO (20:03)
[2018-06-25] MEDS: ZONISAMIDE 100 MG CAP PO (20:12)
[2018-06-26] MEDS: morphine LIQ (10 MG/5 ML) CUP PO (00:54)
[2018-06-26] MEDS: ARTIFICIAL TEARS 15 ML OPH BOTH EYES ×3 (06:35→21:05)
[2018-06-26] MEDS: NYSTATIN 15 GM POWDER BTL TOP ×2 (09:00→21:22)
[2018-06-26] MEDS: BALSAM PERU/CASTOR OIL 60 GM TUBE TOP (09:00)
[2018-06-26] MEDS: SODIUM HYPOCHLORITE (1/40) 1 APPLIC BTL IRR (09:00)
[2018-06-26] MEDS: COLLAGENASE 5 GM (UD JAR) TOP ×2 (09:00→10:09)
[2018-06-26] MEDS: HYDROCORTISONE 1% 28 GM CR TOP ×2 (09:00→21:22)
[2018-06-26] MEDS: FAMOTIDINE 20 MG TAB PO ×2 (10:08→21:05)
[2018-06-26] MEDS: DOCUSATE SODIUM 100 MG CAP PO ×2 (10:08→21:04)
[2018-06-26] MEDS: PYRIDOXINE 50 MG TAB PO (10:08)
[2018-06-26] MEDS: ENOXAPARIN 40 MG/0.4 ML SYG SC (10:08)
[2018-06-26] MEDS: ALLOPURINOL 100 MG TAB PO (10:08)
[2018-06-26] MEDS: GABAPENTIN 100 MG CAP PO ×2 (10:09→21:05)
[2018-06-26] MEDS: DULOXETINE 30 MG CAP DR PO (10:09)
[2018-06-26] MEDS: BACLOFEN 10 MG TAB PO ×3 (10:09→21:05)
[2018-06-26] MEDS: MAGNESIUM OXIDE 400 MG TAB PO ×2 (10:11→21:05)
[2018-06-26] MEDS: FOLIC ACID 1 MG TAB PO (10:11)
[2018-06-26] MEDS: VITAMIN A & D 5 GM OINT PACKET TOP ×2 (10:11→21:05)
[2018-06-26] MEDS: LEVOFLOXACIN 500MG/D5W (PMX) 100 ML IVPB (10:14)
[2018-06-26] MEDS: HYDROCODONE/APAP (5/325) TAB PO ×2 (11:33→20:30)
[2018-06-26] MEDS: ZONISAMIDE 100 MG CAP PO (21:04)
[2018-06-26] MEDS: RISPERIDONE 1 MG TAB PO (21:05)
[2018-06-27] MEDS: morphine LIQ (10 MG/5 ML) CUP PO ×2 (01:13→22:07)
[2018-06-27] MEDS: ARTIFICIAL TEARS 15 ML OPH BOTH EYES ×3 (06:17→22:05)
[2018-06-27] MEDS: ENOXAPARIN 40 MG/0.4 ML SYG SC (08:53)
[2018-06-27] MEDS: ALLOPURINOL 100 MG TAB PO (08:55)
[2018-06-27] MEDS: DULOXETINE 30 MG CAP DR PO (08:55)
[2018-06-27] MEDS: GABAPENTIN 100 MG CAP PO ×2 (08:55→21:03)
[2018-06-27] MEDS: FOLIC ACID 1 MG TAB PO (08:55)
[2018-06-27] MEDS: DOCUSATE SODIUM 100 MG CAP PO ×2 (08:55→21:04)
[2018-06-27] MEDS: MAGNESIUM OXIDE 400 MG TAB PO ×2 (08:55→21:03)
[2018-06-27] MEDS: FAMOTIDINE 20 MG TAB PO ×2 (08:55→21:03)
[2018-06-27] MEDS: BACLOFEN 10 MG TAB PO ×3 (08:55→21:04)
[2018-06-27] MEDS: PYRIDOXINE 50 MG TAB PO (08:55)
[2018-06-27] MEDS: HYDROCORTISONE 1% 28 GM CR TOP ×2 (08:56→21:05)
[2018-06-27] MEDS: BALSAM PERU/CASTOR OIL 60 GM TUBE TOP (08:56)
[2018-06-27] MEDS: COLLAGENASE 5 GM (UD JAR) TOP ×2 (08:56)
[2018-06-27] MEDS: VITAMIN A & D 5 GM OINT PACKET TOP ×2 (08:56→21:04)
[2018-06-27] MEDS: SODIUM HYPOCHLORITE (1/40) 1 APPLIC BTL IRR (08:56)
[2018-06-27] MEDS: NYSTATIN 15 GM POWDER BTL TOP ×2 (08:56→21:05)
[2018-06-27 08:59] LABS: ADD MAN DIFF? NO
[2018-06-27 09:00] LABS: WHITE BLOOD COUNT 4.3 10^3/ul (4.8-10.8)
[2018-06-27 09:00] LABS: BASOPHIL # 0.1 10^3/ul (0.0-0.1); BASOPHILS % 1.2 % (0.0-2.0); EOSINOPHILS # 0.3 10^3/ul (0.0-0.5); EOSINOPHILS % 6.4 % (0.0-7.0); HEMATOCRIT 31.7 % (42.0-52.0); HEMOGLOBIN 9.9 g/dl (14.0-18.0); LYMPHOCYTES # 1.6 10^3/ul (0.8-2.9); LYMPHOCYTES % 36.9 % (15.0-51.0); MEAN CORPUSCULAR HEMOGLOBIN 25.6 pg (29.0-33.0); MEAN CORPUSCULAR HGB CONC 31.2 g/dl (32.0-37.0); MEAN CORPUSCULAR VOLUME 81.9 fl (82.0-101.0); MEAN PLATELET VOLUME 8.7 fl (7.4-10.4); MONOCYTE # 0.5 10^3/ul (0.3-0.9); NEUTROPHIL # 1.8 10^3/ul (1.6-7.5); PLATELET COUNT 299 10^3/UL (140-415); RED BLOOD COUNT 3.87 10^6/ul (4.70-6.10); RED CELL DISTRIBUTION WIDTH 16.8 % (11.5-14.5)
[2018-06-27 09:26] LABS: ANION GAP 9 (5-13); BLOOD UREA NITROGEN 21 mg/dl (7-20); CALCIUM 9.5 mg/dl (8.4-10.2); CARBON DIOXIDE 22 mmol/L (21-31); CHLORIDE 110 mmol/L (97-110); CREATININE 0.81 mg/dl (0.61-1.24); Estimated GFR > 60 mL/min (>60); GLUCOSE 92 mg/dl (70-220); POTASSIUM 4.1 mmol/L (3.5-5.1); SODIUM 141 mmol/L (135-144)
[2018-06-27] MEDS: LEVOFLOXACIN 500MG/D5W (PMX) 100 ML IVPB (10:09)
[2018-06-27] MEDS: HYDROCODONE/APAP (5/325) TAB PO ×2 (10:13→16:20)
[2018-06-27] MEDS: ZONISAMIDE 100 MG CAP PO (21:03)
[2018-06-27] MEDS: RISPERIDONE 1 MG TAB PO (21:04)
[2018-06-27] MEDS ORDERED: HYDROmorphONE 0.5 MG/0.5 ML SYG IV (23:44)
[2018-06-28] MEDS: ARTIFICIAL TEARS 15 ML OPH BOTH EYES ×3 (05:51→22:34)
[2018-06-28] MEDS: morphine LIQ (10 MG/5 ML) CUP PO (05:53)
[2018-06-28] MEDS: BALSAM PERU/CASTOR OIL 60 GM TUBE TOP (09:00)
[2018-06-28] MEDS: SODIUM HYPOCHLORITE (1/40) 1 APPLIC BTL IRR (09:00)
[2018-06-28] MEDS: COLLAGENASE 5 GM (UD JAR) TOP ×2 (09:00)
[2018-06-28] MEDS: VITAMIN A & D 5 GM OINT PACKET TOP ×2 (09:00→20:48)
[2018-06-28] MEDS: HYDROCORTISONE 1% 28 GM CR TOP ×2 (09:00→20:50)
[2018-06-28] MEDS: MAGNESIUM OXIDE 400 MG TAB PO ×2 (09:46→20:49)
[2018-06-28] MEDS: HYDROCODONE/APAP (5/325) TAB PO ×2 (09:46→20:04)
[2018-06-28] MEDS: BACLOFEN 10 MG TAB PO ×3 (09:46→20:49)
[2018-06-28] MEDS: GABAPENTIN 100 MG CAP PO ×2 (09:46→20:49)
[2018-06-28] MEDS: PYRIDOXINE 50 MG TAB PO (09:46)
[2018-06-28] MEDS: DOCUSATE SODIUM 100 MG CAP PO ×2 (09:46→20:48)
[2018-06-28] MEDS: ALLOPURINOL 100 MG TAB PO (09:46)
[2018-06-28] MEDS: FAMOTIDINE 20 MG TAB PO ×2 (09:46→20:49)
[2018-06-28] MEDS: FOLIC ACID 1 MG TAB PO (09:46)
[2018-06-28] MEDS: DULOXETINE 30 MG CAP DR PO (09:46)
[2018-06-28] MEDS: ENOXAPARIN 40 MG/0.4 ML SYG SC (09:48)
[2018-06-28] MEDS: NYSTATIN 15 GM POWDER BTL TOP ×2 (09:51→20:50)
[2018-06-28] MEDS: LEVOFLOXACIN 500MG/D5W (PMX) 100 ML IVPB (11:18)
[2018-06-28] MEDS: RISPERIDONE 1 MG TAB PO (20:49)
[2018-06-28] MEDS: ZONISAMIDE 100 MG CAP PO (20:49)
[2018-06-29] MEDS: HYDROCODONE/APAP (5/325) TAB PO ×3 (03:34→19:53)
[2018-06-29] MEDS: ARTIFICIAL TEARS 15 ML OPH BOTH EYES ×3 (06:19→19:56)
[2018-06-29] MEDS: morphine LIQ (10 MG/5 ML) CUP PO (06:23)
[2018-06-29] MEDS: PYRIDOXINE 50 MG TAB PO (08:51)
[2018-06-29] MEDS: FAMOTIDINE 20 MG TAB PO ×2 (08:51→20:04)
[2018-06-29] MEDS: MAGNESIUM OXIDE 400 MG TAB PO ×2 (08:51→19:57)
[2018-06-29] MEDS: GABAPENTIN 100 MG CAP PO ×2 (08:51→19:57)
[2018-06-29] MEDS: DULOXETINE 30 MG CAP DR PO (08:51)
[2018-06-29] MEDS: BACLOFEN 10 MG TAB PO ×3 (08:51→19:58)
[2018-06-29] MEDS: FOLIC ACID 1 MG TAB PO (08:51)
[2018-06-29] MEDS: ALLOPURINOL 100 MG TAB PO (08:51)
[2018-06-29] MEDS: VITAMIN A & D 5 GM OINT PACKET TOP ×2 (08:52→21:21)
[2018-06-29] MEDS: ENOXAPARIN 40 MG/0.4 ML SYG SC (08:54)
[2018-06-29] MEDS: DOCUSATE SODIUM 100 MG CAP PO ×2 (08:57→19:56)
[2018-06-29] MEDS: COLLAGENASE 5 GM (UD JAR) TOP ×2 (08:58)
[2018-06-29] MEDS: SODIUM HYPOCHLORITE (1/40) 1 APPLIC BTL IRR (08:58)
[2018-06-29] MEDS: NYSTATIN 15 GM POWDER BTL TOP ×2 (08:58→21:15)
[2018-06-29] MEDS: BALSAM PERU/CASTOR OIL 60 GM TUBE TOP (08:59)
[2018-06-29] MEDS: HYDROCORTISONE 1% 28 GM CR TOP ×2 (09:00→21:16)
[2018-06-29] MEDS: LEVOFLOXACIN 500MG/D5W (PMX) 100 ML IVPB (09:13)
[2018-06-29] MEDS: RISPERIDONE 1 MG TAB PO (19:57)
[2018-06-29] MEDS: ZONISAMIDE 100 MG CAP PO (19:58)
[2018-06-30] MEDS: ARTIFICIAL TEARS 15 ML OPH BOTH EYES ×3 (06:03→22:29)
[2018-06-30] MEDS: HYDROCODONE/APAP (5/325) TAB PO ×3 (06:05→20:26)
[2018-06-30] MEDS: DULOXETINE 30 MG CAP DR PO (08:55)
[2018-06-30] MEDS: BACLOFEN 10 MG TAB PO ×3 (08:55→20:18)
[2018-06-30] MEDS: FOLIC ACID 1 MG TAB PO (08:55)
[2018-06-30] MEDS: PYRIDOXINE 50 MG TAB PO (08:55)
[2018-06-30] MEDS: COLLAGENASE 5 GM (UD JAR) TOP ×2 (08:55→08:57)
[2018-06-30] MEDS: ENOXAPARIN 40 MG/0.4 ML SYG SC (08:55)
[2018-06-30] MEDS: FAMOTIDINE 20 MG TAB PO ×2 (08:55→20:28)
[2018-06-30] MEDS: GABAPENTIN 100 MG CAP PO ×2 (08:55→20:18)
[2018-06-30] MEDS: MAGNESIUM OXIDE 400 MG TAB PO ×2 (08:55→20:18)
[2018-06-30] MEDS: VITAMIN A & D 5 GM OINT PACKET TOP ×2 (08:56→22:01)
[2018-06-30] MEDS: ALLOPURINOL 100 MG TAB PO (08:56)
[2018-06-30] MEDS: BALSAM PERU/CASTOR OIL 60 GM TUBE TOP (08:56)
[2018-06-30] MEDS: DOCUSATE SODIUM 100 MG CAP PO ×2 (08:56→20:17)
[2018-06-30] MEDS: SODIUM HYPOCHLORITE (1/40) 1 APPLIC BTL IRR (08:57)
[2018-06-30] MEDS: HYDROCORTISONE 1% 28 GM CR TOP ×2 (08:57→21:00)
[2018-06-30] MEDS: NYSTATIN 15 GM POWDER BTL TOP ×2 (08:57→22:02)
[2018-06-30] MEDS: LEVOFLOXACIN 500MG/D5W (PMX) 100 ML IVPB (09:00)
[2018-06-30] MEDS: ZONISAMIDE 100 MG CAP PO (20:17)
[2018-06-30] MEDS: RISPERIDONE 1 MG TAB PO (20:25)
[2018-07-01] MEDS: HYDROCODONE/APAP (5/325) TAB PO ×3 (02:32→18:27)
[2018-07-01] MEDS: ARTIFICIAL TEARS 15 ML OPH BOTH EYES ×3 (05:46→21:36)
[2018-07-01] MEDS: COLLAGENASE 5 GM (UD JAR) TOP ×2 (09:00→09:57)
[2018-07-01] MEDS: DOCUSATE SODIUM 100 MG CAP PO ×2 (09:54→20:26)
[2018-07-01] MEDS: SODIUM HYPOCHLORITE (1/40) 1 APPLIC BTL IRR (09:54)
[2018-07-01] MEDS: DULOXETINE 30 MG CAP DR PO (09:55)
[2018-07-01] MEDS: FOLIC ACID 1 MG TAB PO (09:55)
[2018-07-01] MEDS: GABAPENTIN 100 MG CAP PO ×2 (09:55→20:27)
[2018-07-01] MEDS: FAMOTIDINE 20 MG TAB PO ×2 (09:55→20:27)
[2018-07-01] MEDS: PYRIDOXINE 50 MG TAB PO (09:55)
[2018-07-01] MEDS: BACLOFEN 10 MG TAB PO ×3 (09:55→20:27)
[2018-07-01] MEDS: ALLOPURINOL 100 MG TAB PO (09:55)
[2018-07-01] MEDS: NYSTATIN 15 GM POWDER BTL TOP ×2 (09:56→20:29)
[2018-07-01] MEDS: HYDROCORTISONE 1% 28 GM CR TOP ×2 (09:57→20:29)
[2018-07-01] MEDS: VITAMIN A & D 5 GM OINT PACKET TOP ×2 (09:57→20:30)
[2018-07-01] MEDS: LEVOFLOXACIN 500MG/D5W (PMX) 100 ML IVPB (09:57)
[2018-07-01] MEDS: BALSAM PERU/CASTOR OIL 60 GM TUBE TOP (09:58)
[2018-07-01] MEDS: ENOXAPARIN 40 MG/0.4 ML SYG SC (09:59)
[2018-07-01] MEDS: MAGNESIUM OXIDE 400 MG TAB PO ×2 (10:03→20:27)
[2018-07-01] MEDS: RISPERIDONE 1 MG TAB PO (20:27)
[2018-07-01] MEDS: ZONISAMIDE 100 MG CAP PO (20:27)
[2018-07-02] MEDS: HYDROCODONE/APAP (5/325) TAB PO ×3 (01:54→19:53)
[2018-07-02] MEDS: ARTIFICIAL TEARS 15 ML OPH BOTH EYES ×3 (06:13→21:06)
[2018-07-02] MEDS: COLLAGENASE 5 GM (UD JAR) TOP ×2 (10:07→10:08)
[2018-07-02] MEDS: VITAMIN A & D 5 GM OINT PACKET TOP ×2 (10:07→21:06)
[2018-07-02] MEDS: ENOXAPARIN 40 MG/0.4 ML SYG SC (10:07)
[2018-07-02] MEDS: LEVOFLOXACIN 500MG/D5W (PMX) 100 ML IVPB (10:07)
[2018-07-02] MEDS: DOCUSATE SODIUM 100 MG CAP PO ×2 (10:08→21:05)
[2018-07-02] MEDS: DULOXETINE 30 MG CAP DR PO (10:09)
[2018-07-02] MEDS: BACLOFEN 10 MG TAB PO ×3 (10:09→21:05)
[2018-07-02] MEDS: FOLIC ACID 1 MG TAB PO (10:09)
[2018-07-02] MEDS: ALLOPURINOL 100 MG TAB PO (10:09)
[2018-07-02] MEDS: PYRIDOXINE 50 MG TAB PO (10:09)
[2018-07-02] MEDS: MAGNESIUM OXIDE 400 MG TAB PO ×2 (10:09→21:05)
[2018-07-02] MEDS: FAMOTIDINE 20 MG TAB PO ×2 (10:10→21:05)
[2018-07-02] MEDS: GABAPENTIN 100 MG CAP PO ×2 (10:10→21:05)
[2018-07-02] MEDS: HYDROCORTISONE 1% 28 GM CR TOP ×2 (10:23→21:06)
[2018-07-02] MEDS: BALSAM PERU/CASTOR OIL 60 GM TUBE TOP (10:23)
[2018-07-02] MEDS: NYSTATIN 15 GM POWDER BTL TOP ×2 (10:23→21:06)
[2018-07-02] MEDS: SODIUM HYPOCHLORITE (1/40) 1 APPLIC BTL IRR (10:24)
[2018-07-02] MEDS ORDERED: VANCOMYCIN IV PER PHARMACY XX (16:30)
[2018-07-02] MEDS: VANCOMYCIN 1.5 GM in SOD CHLORIDE 0.9% 250 ML IVPB (19:08)
[2018-07-02] MEDS: RISPERIDONE 1 MG TAB PO (21:05)
[2018-07-02] MEDS: ZONISAMIDE 100 MG CAP PO (21:06)
[2018-07-02] MEDS: MEROPENEM 1 GM/50ML(PMX) 50 ML IVPB (22:16)
[2018-07-03] MEDS: HYDROCODONE/APAP (5/325) TAB PO ×3 (01:54→22:48)
[2018-07-03] MEDS: ARTIFICIAL TEARS 15 ML OPH BOTH EYES ×3 (06:02→22:43)
[2018-07-03] MEDS: VANCOMYCIN 1 GM 250 ML IVPB (06:02)
[2018-07-03 07:53] LABS: ANION GAP 10 (5-13); BLOOD UREA NITROGEN 36 mg/dl (7-20); CALCIUM 9.4 mg/dl (8.4-10.2); CARBON DIOXIDE 23 mmol/L (21-31); CHLORIDE 108 mmol/L (97-110); CREATININE 0.76 mg/dl (0.61-1.24); Estimated GFR > 60 mL/min (>60); GLUCOSE 92 mg/dl (70-220); POTASSIUM 4.1 mmol/L (3.5-5.1); SODIUM 141 mmol/L (135-144)
[2018-07-03] MEDS: ENOXAPARIN 40 MG/0.4 ML SYG SC (08:44)
[2018-07-03] MEDS: MEROPENEM 1 GM/50ML(PMX) 50 ML IVPB ×2 (08:44→20:45)
[2018-07-03] MEDS: FAMOTIDINE 20 MG TAB PO ×2 (08:45→20:46)
[2018-07-03] MEDS: PYRIDOXINE 50 MG TAB PO (08:45)
[2018-07-03] MEDS: DULOXETINE 30 MG CAP DR PO (08:45)
[2018-07-03] MEDS: FOLIC ACID 1 MG TAB PO (08:45)
[2018-07-03] MEDS: GABAPENTIN 100 MG CAP PO ×2 (08:45→20:46)
[2018-07-03] MEDS: ALLOPURINOL 100 MG TAB PO (08:45)
[2018-07-03] MEDS: MAGNESIUM OXIDE 400 MG TAB PO ×2 (08:45→20:46)
[2018-07-03] MEDS: BACLOFEN 10 MG TAB PO ×3 (08:46→20:46)
[2018-07-03] MEDS: VITAMIN A & D 5 GM OINT PACKET TOP ×2 (08:47→20:47)
[2018-07-03] MEDS: DOCUSATE SODIUM 100 MG CAP PO ×2 (08:49→20:46)
[2018-07-03] MEDS: NYSTATIN 15 GM POWDER BTL TOP ×2 (08:54→20:50)
[2018-07-03] MEDS: SODIUM HYPOCHLORITE (1/40) 1 APPLIC BTL IRR (08:54)
[2018-07-03] MEDS: BALSAM PERU/CASTOR OIL 60 GM TUBE TOP (08:54)
[2018-07-03] MEDS: HYDROCORTISONE 1% 28 GM CR TOP ×2 (08:54→20:50)
[2018-07-03] MEDS: COLLAGENASE 5 GM (UD JAR) TOP ×2 (08:56)
[2018-07-03] MEDS: morphine LIQ (10 MG/5 ML) CUP PO (08:57)
[2018-07-03] MEDS: VANCOMYCIN 500 MG (PMX) 100 ML IVPB (17:17)
[2018-07-03] MEDS: ZONISAMIDE 100 MG CAP PO (20:46)
[2018-07-03] MEDS: RISPERIDONE 1 MG TAB PO (20:46)
[2018-07-04] MEDS: ARTIFICIAL TEARS 15 ML OPH BOTH EYES ×3 (06:18→21:22)
[2018-07-04] MEDS: COLLAGENASE 5 GM (UD JAR) TOP ×2 (09:07)
[2018-07-04] MEDS: VITAMIN A & D 5 GM OINT PACKET TOP ×2 (09:07→21:00)
[2018-07-04] MEDS: DOCUSATE SODIUM 100 MG CAP PO ×2 (09:08→20:13)
[2018-07-04] MEDS: ENOXAPARIN 40 MG/0.4 ML SYG SC (09:08)
[2018-07-04] MEDS: MEROPENEM 1 GM/50ML(PMX) 50 ML IVPB ×2 (09:08→20:09)
[2018-07-04] MEDS: FOLIC ACID 1 MG TAB PO (09:09)
[2018-07-04] MEDS: HYDROCODONE/APAP (5/325) TAB PO ×2 (09:09→20:14)
[2018-07-04] MEDS: FAMOTIDINE 20 MG TAB PO ×2 (09:09→20:13)
[2018-07-04] MEDS: ALLOPURINOL 100 MG TAB PO (09:09)
[2018-07-04] MEDS: PYRIDOXINE 50 MG TAB PO (09:09)
[2018-07-04] MEDS: MAGNESIUM OXIDE 400 MG TAB PO ×2 (09:09→20:14)
[2018-07-04] MEDS: DULOXETINE 30 MG CAP DR PO (09:09)
[2018-07-04] MEDS: BACLOFEN 10 MG TAB PO ×3 (09:09→20:14)
[2018-07-04] MEDS: GABAPENTIN 100 MG CAP PO ×2 (09:09→20:14)
[2018-07-04] MEDS: SODIUM HYPOCHLORITE (1/40) 1 APPLIC BTL IRR (09:16)
[2018-07-04] MEDS: NYSTATIN 15 GM POWDER BTL TOP ×2 (09:16→21:00)
[2018-07-04] MEDS: BALSAM PERU/CASTOR OIL 60 GM TUBE TOP (09:17)
[2018-07-04] MEDS: HYDROCORTISONE 1% 28 GM CR TOP ×2 (09:17→21:00)
[2018-07-04 13:31] LABS: PROCALCITONIN <0.10 ng/mL (<0.10)
[2018-07-04] MEDS: VANCOMYCIN 1.5 GM in SOD CHLORIDE 0.9% 250 ML IVPB (16:02)
[2018-07-04] MEDS: ZONISAMIDE 100 MG CAP PO (20:13)
[2018-07-04] MEDS: RISPERIDONE 1 MG TAB PO (20:15)
[2018-07-05] MEDS: ARTIFICIAL TEARS 15 ML OPH BOTH EYES ×3 (06:55→21:43)
[2018-07-05] MEDS: HYDROCODONE/APAP (5/325) TAB PO ×2 (06:55→16:35)
[2018-07-05] MEDS: HYDROCORTISONE 1% 28 GM CR TOP ×2 (09:00→21:00)
[2018-07-05] MEDS: SILVER SULFADIAZINE 1% 25 GM CR TOP (09:00)
[2018-07-05] MEDS: COLLAGENASE 5 GM (UD JAR) TOP ×2 (09:00)
[2018-07-05] MEDS: NYSTATIN 15 GM POWDER BTL TOP ×3 (09:00→21:43)
[2018-07-05] MEDS: VITAMIN A & D 5 GM OINT PACKET TOP ×3 (09:00→21:43)
[2018-07-05] MEDS: BALSAM PERU/CASTOR OIL 60 GM TUBE TOP (09:00)
[2018-07-05] MEDS: SODIUM HYPOCHLORITE (1/40) 1 APPLIC BTL IRR (09:00)
[2018-07-05] MEDS: MEROPENEM 1 GM/50ML(PMX) 50 ML IVPB (09:05)
[2018-07-05] MEDS: DOCUSATE SODIUM 100 MG CAP PO ×2 (09:06→21:44)
[2018-07-05] MEDS: FAMOTIDINE 20 MG TAB PO ×2 (09:07→21:44)
[2018-07-05] MEDS: FOLIC ACID 1 MG TAB PO (09:07)
[2018-07-05] MEDS: DULOXETINE 30 MG CAP DR PO (09:07)
[2018-07-05] MEDS: ALLOPURINOL 100 MG TAB PO (09:07)
[2018-07-05] MEDS: BACLOFEN 10 MG TAB PO ×3 (09:07→21:44)
[2018-07-05] MEDS: PYRIDOXINE 50 MG TAB PO (09:07)
[2018-07-05] MEDS: GABAPENTIN 100 MG CAP PO ×2 (09:07→21:44)
[2018-07-05] MEDS: MAGNESIUM OXIDE 400 MG TAB PO ×2 (09:07→21:45)
[2018-07-05] MEDS: ENOXAPARIN 40 MG/0.4 ML SYG SC (09:11)
[2018-07-05] MEDS: morphine LIQ (10 MG/5 ML) CUP PO ×2 (12:15→21:45)
[2018-07-05] MEDS: VANCOMYCIN 1.5 GM in SOD CHLORIDE 0.9% 250 ML IVPB (16:28)
[2018-07-05] MEDS: ZONISAMIDE 100 MG CAP PO (21:43)
[2018-07-05] MEDS: RISPERIDONE 1 MG TAB PO (21:44)
[2018-07-06] MEDS: morphine LIQ (10 MG/5 ML) CUP PO (03:41)
[2018-07-06] MEDS: LEVOFLOXACIN 500 MG TAB PO (05:13)
[2018-07-06] MEDS: ARTIFICIAL TEARS 15 ML OPH BOTH EYES ×3 (05:13→22:06)
[2018-07-06] MEDS: HYDROCODONE/APAP (5/325) TAB PO ×2 (05:13→20:04)
[2018-07-06 05:59] LABS: BLOOD UREA NITROGEN 27 mg/dl (7-20)
[2018-07-06 05:59] LABS: CREATININE 0.74 mg/dl (0.61-1.24)
[2018-07-06] MEDS: BALSAM PERU/CASTOR OIL 60 GM TUBE TOP (09:00)
[2018-07-06] MEDS: HYDROCORTISONE 1% 28 GM CR TOP ×2 (09:00→21:00)
[2018-07-06] MEDS: COLLAGENASE 5 GM (UD JAR) TOP ×2 (09:00→10:52)
[2018-07-06] MEDS: SODIUM HYPOCHLORITE (1/40) 1 APPLIC BTL IRR (10:45)
[2018-07-06] MEDS: DOCUSATE SODIUM 100 MG CAP PO ×2 (10:45→20:01)
[2018-07-06] MEDS: DULOXETINE 30 MG CAP DR PO (10:46)
[2018-07-06] MEDS: FOLIC ACID 1 MG TAB PO (10:46)
[2018-07-06] MEDS: BACLOFEN 10 MG TAB PO ×3 (10:47→20:03)
[2018-07-06] MEDS: ALLOPURINOL 100 MG TAB PO (10:47)
[2018-07-06] MEDS: GABAPENTIN 100 MG CAP PO ×2 (10:47→20:03)
[2018-07-06] MEDS: FAMOTIDINE 20 MG TAB PO ×2 (10:47→20:03)
[2018-07-06] MEDS: PYRIDOXINE 50 MG TAB PO (10:47)
[2018-07-06] MEDS: MAGNESIUM OXIDE 400 MG TAB PO ×2 (10:47→20:03)
[2018-07-06] MEDS: ENOXAPARIN 40 MG/0.4 ML SYG SC (10:48)
[2018-07-06] MEDS: NYSTATIN 15 GM POWDER BTL TOP ×2 (10:49→21:00)
[2018-07-06] MEDS: SILVER SULFADIAZINE 1% 25 GM CR TOP (10:52)
[2018-07-06] MEDS: VITAMIN A & D 5 GM OINT PACKET TOP ×2 (10:53→21:00)
[2018-07-06] MEDS: FLUCONAZOLE 100 MG TAB PO (13:50)
[2018-07-06] MEDS ORDERED: AMPICILLIN 500 MG CAP PO (14:00)
[2018-07-06] MEDS: AMPICILLIN 500 MG CAP PO ×2 (14:44→22:11)
[2018-07-06] MEDS ORDERED: VANCOMYCIN 1.25 GM in SOD CHLORIDE 0.9% 250 ML IVPB (16:00)
[2018-07-06] MEDS: ZONISAMIDE 100 MG CAP PO (20:02)
[2018-07-06] MEDS: RISPERIDONE 1 MG TAB PO (20:02)
[2018-07-07] MEDS: HYDROCODONE/APAP (5/325) TAB PO ×3 (05:24→19:43)
[2018-07-07] MEDS: ARTIFICIAL TEARS 15 ML OPH BOTH EYES ×3 (05:24→21:19)
[2018-07-07] MEDS: LEVOFLOXACIN 500 MG TAB PO (05:24)
[2018-07-07] MEDS: AMPICILLIN 500 MG CAP PO ×3 (05:26→21:19)
[2018-07-07 07:15] LABS: ADD MAN DIFF? NO
[2018-07-07 07:20] LABS: WHITE BLOOD COUNT 5.1 10^3/ul (4.8-10.8)
[2018-07-07 07:20] LABS: BASOPHILS % 0.8 % (0.0-2.0); EOSINOPHILS # 0.3 10^3/ul (0.0-0.5); EOSINOPHILS % 5.7 % (0.0-7.0); HEMATOCRIT 30.3 % (42.0-52.0); HEMOGLOBIN 9.3 g/dl (14.0-18.0); LYMPHOCYTES # 1.7 10^3/ul (0.8-2.9); LYMPHOCYTES % 33.3 % (15.0-51.0); MEAN CORPUSCULAR HGB CONC 30.7 g/dl (32.0-37.0); MEAN CORPUSCULAR VOLUME 81.5 fl (82.0-101.0); MEAN PLATELET VOLUME 9.1 fl (7.4-10.4); MONOCYTE # 0.6 10^3/ul (0.3-0.9); MONOCYTES % 11.5 % (0.0-11.0); NEUTROPHIL # 2.5 10^3/ul (1.6-7.5); NEUTROPHILS % 48.5 % (39.0-77.0); PLATELET COUNT 313 10^3/UL (140-415); RED BLOOD COUNT 3.72 10^6/ul (4.70-6.10); RED CELL DISTRIBUTION WIDTH 15.9 % (11.5-14.5)
[2018-07-07 07:45] LABS: ANION GAP 12 (5-13); BLOOD UREA NITROGEN 32 mg/dl (7-20); CALCIUM 9.7 mg/dl (8.4-10.2); CARBON DIOXIDE 24 mmol/L (21-31); CHLORIDE 107 mmol/L (97-110); CREATININE 0.69 mg/dl (0.61-1.24); Estimated GFR > 60 mL/min (>60); GLUCOSE 86 mg/dl (70-220); MAGNESIUM 2.2 mg/dl (1.7-2.5); POTASSIUM 4.2 mmol/L (3.5-5.1); SODIUM 143 mmol/L (135-144)
[2018-07-07] MEDS: COLLAGENASE 5 GM (UD JAR) TOP ×2 (08:56)
[2018-07-07] MEDS: BALSAM PERU/CASTOR OIL 60 GM TUBE TOP (08:57)
[2018-07-07] MEDS: HYDROCORTISONE 1% 28 GM CR TOP ×2 (09:00→21:00)
[2018-07-07] MEDS: SODIUM HYPOCHLORITE (1/40) 1 APPLIC BTL IRR (09:00)
[2018-07-07] MEDS: BACLOFEN 10 MG TAB PO ×3 (09:08→21:21)
[2018-07-07] MEDS: ALLOPURINOL 100 MG TAB PO (09:08)
[2018-07-07] MEDS: DOCUSATE SODIUM 100 MG CAP PO ×2 (09:08→21:19)
[2018-07-07] MEDS: DULOXETINE 30 MG CAP DR PO (09:08)
[2018-07-07] MEDS: GABAPENTIN 100 MG CAP PO ×2 (09:08→21:19)
[2018-07-07] MEDS: MAGNESIUM OXIDE 400 MG TAB PO ×2 (09:08→21:19)
[2018-07-07] MEDS: FOLIC ACID 1 MG TAB PO (09:08)
[2018-07-07] MEDS: FLUCONAZOLE 100 MG TAB PO (09:09)
[2018-07-07] MEDS: FAMOTIDINE 20 MG TAB PO ×2 (09:09→21:19)
[2018-07-07] MEDS: PYRIDOXINE 50 MG TAB PO (09:09)
[2018-07-07] MEDS: ENOXAPARIN 40 MG/0.4 ML SYG SC (09:10)
[2018-07-07] MEDS: SILVER SULFADIAZINE 1% 25 GM CR TOP (09:10)
[2018-07-07] MEDS: VITAMIN A & D 5 GM OINT PACKET TOP ×2 (09:15→21:18)
[2018-07-07] MEDS: NYSTATIN 15 GM POWDER BTL TOP ×2 (09:16→21:25)
[2018-07-07] MEDS: ZONISAMIDE 100 MG CAP PO (21:18)
[2018-07-07] MEDS: RISPERIDONE 1 MG TAB PO (21:19)
[2018-07-08] MEDS: HYDROCODONE/APAP (5/325) TAB PO ×3 (04:29→18:14)
[2018-07-08] MEDS: LEVOFLOXACIN 500 MG TAB PO (05:15)
[2018-07-08] MEDS: ARTIFICIAL TEARS 15 ML OPH BOTH EYES ×3 (05:15→22:10)
[2018-07-08] MEDS: AMPICILLIN 500 MG CAP PO ×3 (05:15→22:10)
[2018-07-08] MEDS: COLLAGENASE 5 GM (UD JAR) TOP ×2 (09:00→09:09)
[2018-07-08] MEDS: HYDROCORTISONE 1% 28 GM CR TOP ×2 (09:00→20:47)
[2018-07-08] MEDS: PYRIDOXINE 50 MG TAB PO (09:05)
[2018-07-08] MEDS: DULOXETINE 30 MG CAP DR PO (09:05)
[2018-07-08] MEDS: VITAMIN A & D 5 GM OINT PACKET TOP ×2 (09:05→20:40)
[2018-07-08] MEDS: MAGNESIUM OXIDE 400 MG TAB PO ×2 (09:05→20:40)
[2018-07-08] MEDS: FAMOTIDINE 20 MG TAB PO ×2 (09:06→20:40)
[2018-07-08] MEDS: FOLIC ACID 1 MG TAB PO (09:07)
[2018-07-08] MEDS: DOCUSATE SODIUM 100 MG CAP PO ×2 (09:07→20:40)
[2018-07-08] MEDS: ALLOPURINOL 100 MG TAB PO (09:07)
[2018-07-08] MEDS: GABAPENTIN 100 MG CAP PO ×2 (09:08→20:40)
[2018-07-08] MEDS: BACLOFEN 10 MG TAB PO ×3 (09:08→20:40)
[2018-07-08] MEDS: FLUCONAZOLE 100 MG TAB PO (09:11)
[2018-07-08] MEDS: SODIUM HYPOCHLORITE (1/40) 1 APPLIC BTL IRR (09:13)
[2018-07-08] MEDS: ENOXAPARIN 40 MG/0.4 ML SYG SC (09:13)
[2018-07-08] MEDS: SILVER SULFADIAZINE 1% 25 GM CR TOP (09:13)
[2018-07-08] MEDS: NYSTATIN 15 GM POWDER BTL TOP ×2 (09:14→20:41)
[2018-07-08] MEDS: BALSAM PERU/CASTOR OIL 60 GM TUBE TOP (09:14)
[2018-07-08] MEDS: morphine LIQ (10 MG/5 ML) CUP PO (09:16)
[2018-07-08] MEDS: RISPERIDONE 1 MG TAB PO (20:40)
[2018-07-08] MEDS: ZONISAMIDE 100 MG CAP PO (20:40)
[2018-07-09] MEDS: HYDROCODONE/APAP (5/325) TAB PO ×3 (00:19→20:55)
[2018-07-09] MEDS: AMPICILLIN 500 MG CAP PO ×3 (05:35→22:04)
[2018-07-09] MEDS: ARTIFICIAL TEARS 15 ML OPH BOTH EYES ×3 (05:35→22:04)
[2018-07-09] MEDS: LEVOFLOXACIN 500 MG TAB PO (05:35)
[2018-07-09] MEDS: COLLAGENASE 5 GM (UD JAR) TOP ×2 (08:47)
[2018-07-09] MEDS: HYDROCORTISONE 1% 28 GM CR TOP ×2 (08:47→21:00)
[2018-07-09] MEDS: ENOXAPARIN 40 MG/0.4 ML SYG SC (08:58)
[2018-07-09] MEDS: ALLOPURINOL 100 MG TAB PO (08:59)
[2018-07-09] MEDS: FAMOTIDINE 20 MG TAB PO ×2 (08:59→20:54)
[2018-07-09] MEDS: MAGNESIUM OXIDE 400 MG TAB PO ×2 (08:59→20:54)
[2018-07-09] MEDS: GABAPENTIN 100 MG CAP PO ×2 (08:59→20:54)
[2018-07-09] MEDS: DOCUSATE SODIUM 100 MG CAP PO ×2 (09:00→20:54)
[2018-07-09] MEDS: BALSAM PERU/CASTOR OIL 60 GM TUBE TOP (09:00)
[2018-07-09] MEDS: FLUCONAZOLE 100 MG TAB PO (09:00)
[2018-07-09] MEDS: BACLOFEN 10 MG TAB PO ×3 (09:00→20:54)
[2018-07-09] MEDS: PYRIDOXINE 50 MG TAB PO (09:00)
[2018-07-09] MEDS: FOLIC ACID 1 MG TAB PO (09:00)
[2018-07-09] MEDS: VITAMIN A & D 5 GM OINT PACKET TOP ×2 (09:00→20:55)
[2018-07-09] MEDS: DULOXETINE 30 MG CAP DR PO (09:00)
[2018-07-09] MEDS: NYSTATIN 15 GM POWDER BTL TOP ×2 (09:04→21:00)
[2018-07-09] MEDS: SODIUM HYPOCHLORITE (1/40) 1 APPLIC BTL IRR (09:04)
[2018-07-09] MEDS: SILVER SULFADIAZINE 1% 25 GM CR TOP (09:05)
[2018-07-09] MEDS: RISPERIDONE 1 MG TAB PO (20:54)
[2018-07-09] MEDS: ZONISAMIDE 100 MG CAP PO (20:54)
[2018-07-10] MEDS: ARTIFICIAL TEARS 15 ML OPH BOTH EYES ×3 (05:37→21:57)
[2018-07-10] MEDS: AMPICILLIN 500 MG CAP PO ×3 (05:38→21:57)
[2018-07-10] MEDS: LEVOFLOXACIN 500 MG TAB PO (05:38)
[2018-07-10] MEDS: ENOXAPARIN 40 MG/0.4 ML SYG SC (08:37)
[2018-07-10] MEDS: ALLOPURINOL 100 MG TAB PO (08:40)
[2018-07-10] MEDS: COLLAGENASE 5 GM (UD JAR) TOP ×2 (08:40→08:43)
[2018-07-10] MEDS: PYRIDOXINE 50 MG TAB PO (08:40)
[2018-07-10] MEDS: DULOXETINE 30 MG CAP DR PO (08:40)
[2018-07-10] MEDS: FOLIC ACID 1 MG TAB PO (08:40)
[2018-07-10] MEDS: BACLOFEN 10 MG TAB PO ×3 (08:40→20:43)
[2018-07-10] MEDS: FAMOTIDINE 20 MG TAB PO ×2 (08:40→20:43)
[2018-07-10] MEDS: MAGNESIUM OXIDE 400 MG TAB PO ×2 (08:41→20:43)
[2018-07-10] MEDS: GABAPENTIN 100 MG CAP PO ×2 (08:41→20:43)
[2018-07-10] MEDS: FLUCONAZOLE 100 MG TAB PO (08:41)
[2018-07-10] MEDS: VITAMIN A & D 5 GM OINT PACKET TOP ×2 (08:41→20:41)
[2018-07-10] MEDS: DOCUSATE SODIUM 100 MG CAP PO ×2 (08:41→20:43)
[2018-07-10] MEDS: SODIUM HYPOCHLORITE (1/40) 1 APPLIC BTL IRR (08:42)
[2018-07-10] MEDS: HYDROCORTISONE 1% 28 GM CR TOP ×2 (08:42→21:55)
[2018-07-10] MEDS: NYSTATIN 15 GM POWDER BTL TOP ×2 (08:42→20:46)
[2018-07-10] MEDS: SILVER SULFADIAZINE 1% 25 GM CR TOP (08:43)
[2018-07-10] MEDS: BALSAM PERU/CASTOR OIL 60 GM TUBE TOP (08:44)
[2018-07-10] MEDS: HYDROCODONE/APAP (5/325) TAB PO (08:50)
[2018-07-10] MEDS: morphine LIQ (10 MG/5 ML) CUP PO ×2 (14:36→21:55)
[2018-07-10] MEDS: ASCORBIC ACID 500 MG TAB PO (18:03)
[2018-07-10] MEDS: ZINC SULFATE 220 MG CAP PO (18:03)
[2018-07-10] MEDS: MULTIVITAMINS THERAPEUTIC TAB PO (18:03)
[2018-07-10] MEDS: RISPERIDONE 1 MG TAB PO (20:43)
[2018-07-10] MEDS: ZONISAMIDE 100 MG CAP PO (20:43)
[2018-07-11] MEDS: HYDROCODONE/APAP (5/325) TAB PO ×3 (02:17→20:12)
[2018-07-11] MEDS: ARTIFICIAL TEARS 15 ML OPH BOTH EYES ×3 (05:05→21:50)
[2018-07-11] MEDS: LEVOFLOXACIN 500 MG TAB PO (05:06)
[2018-07-11] MEDS: morphine LIQ (10 MG/5 ML) CUP PO ×3 (05:06→21:59)
[2018-07-11] MEDS: AMPICILLIN 500 MG CAP PO ×3 (05:06→22:00)
[2018-07-11] MEDS: ALLOPURINOL 100 MG TAB PO (09:05)
[2018-07-11] MEDS: ASCORBIC ACID 500 MG TAB PO (09:05)
[2018-07-11] MEDS: ZINC SULFATE 220 MG CAP PO (09:05)
[2018-07-11] MEDS: BACLOFEN 10 MG TAB PO ×3 (09:05→20:12)
[2018-07-11] MEDS: DULOXETINE 30 MG CAP DR PO (09:05)
[2018-07-11] MEDS: FOLIC ACID 1 MG TAB PO (09:05)
[2018-07-11] MEDS: MAGNESIUM OXIDE 400 MG TAB PO ×2 (09:05→20:12)
[2018-07-11] MEDS: DOCUSATE SODIUM 100 MG CAP PO ×2 (09:05→20:11)
[2018-07-11] MEDS: FLUCONAZOLE 100 MG TAB PO (09:05)
[2018-07-11] MEDS: MULTIVITAMINS THERAPEUTIC TAB PO (09:05)
[2018-07-11] MEDS: VITAMIN A & D 5 GM OINT PACKET TOP ×2 (09:06→20:14)
[2018-07-11] MEDS: HYDROCORTISONE 1% 28 GM CR TOP ×2 (09:06→20:14)
[2018-07-11] MEDS: PYRIDOXINE 50 MG TAB PO (09:06)
[2018-07-11] MEDS: FAMOTIDINE 20 MG TAB PO ×2 (09:06→20:12)
[2018-07-11] MEDS: GABAPENTIN 100 MG CAP PO ×2 (09:06→20:12)
[2018-07-11] MEDS: COLLAGENASE 5 GM (UD JAR) TOP ×2 (09:07→09:08)
[2018-07-11] MEDS: NYSTATIN 15 GM POWDER BTL TOP ×2 (09:08→21:51)
[2018-07-11] MEDS: BALSAM PERU/CASTOR OIL 60 GM TUBE TOP (09:09)
[2018-07-11] MEDS: SILVER SULFADIAZINE 1% 25 GM CR TOP (09:09)
[2018-07-11] MEDS: SODIUM HYPOCHLORITE (1/40) 1 APPLIC BTL IRR (09:09)
[2018-07-11] MEDS: ENOXAPARIN 40 MG/0.4 ML SYG SC (09:10)
[2018-07-11] MEDS ORDERED: MAGNESIUM HYDROXIDE 30ML CUP PO (13:00)
[2018-07-11] MEDS: MAGNESIUM HYDROXIDE 30ML CUP PO (13:20)
[2018-07-11] MEDS: ZONISAMIDE 100 MG CAP PO (20:11)
[2018-07-11] MEDS: RISPERIDONE 1 MG TAB PO (20:13)
[2018-07-12] MEDS: AMPICILLIN 500 MG CAP PO ×3 (05:19→21:59)
[2018-07-12] MEDS: HYDROCODONE/APAP (5/325) TAB PO ×3 (05:19→20:11)
[2018-07-12] MEDS: LEVOFLOXACIN 500 MG TAB PO (05:19)
[2018-07-12] MEDS: ARTIFICIAL TEARS 15 ML OPH BOTH EYES ×3 (05:19→22:04)
[2018-07-12] MEDS: SODIUM HYPOCHLORITE (1/40) 1 APPLIC BTL IRR (09:00)
[2018-07-12] MEDS: COLLAGENASE 5 GM (UD JAR) TOP ×2 (09:00)
[2018-07-12] MEDS: BALSAM PERU/CASTOR OIL 60 GM TUBE TOP (09:00)
[2018-07-12] MEDS: SILVER SULFADIAZINE 1% 25 GM CR TOP (09:00)
[2018-07-12] MEDS: DOCUSATE SODIUM 100 MG CAP PO ×2 (09:00→20:12)
[2018-07-12] MEDS: VITAMIN A & D 5 GM OINT PACKET TOP ×2 (09:24→20:13)
[2018-07-12] MEDS: HYDROCORTISONE 1% 28 GM CR TOP ×2 (09:24→20:13)
[2018-07-12] MEDS: ASCORBIC ACID 500 MG TAB PO (10:16)
[2018-07-12] MEDS: FAMOTIDINE 20 MG TAB PO ×2 (10:17→20:12)
[2018-07-12] MEDS: MULTIVITAMINS THERAPEUTIC TAB PO (10:17)
[2018-07-12] MEDS: GABAPENTIN 100 MG CAP PO ×2 (10:17→20:11)
[2018-07-12] MEDS: DULOXETINE 30 MG CAP DR PO (10:17)
[2018-07-12] MEDS: FOLIC ACID 1 MG TAB PO (10:17)
[2018-07-12] MEDS: FLUCONAZOLE 100 MG TAB PO (10:17)
[2018-07-12] MEDS: ALLOPURINOL 100 MG TAB PO (10:17)
[2018-07-12] MEDS: ZINC SULFATE 220 MG CAP PO (10:17)
[2018-07-12] MEDS: MAGNESIUM OXIDE 400 MG TAB PO ×2 (10:17→20:12)
[2018-07-12] MEDS: BACLOFEN 10 MG TAB PO ×3 (10:18→20:12)
[2018-07-12] MEDS: PYRIDOXINE 50 MG TAB PO (10:18)
[2018-07-12] MEDS: ENOXAPARIN 40 MG/0.4 ML SYG SC (10:19)
[2018-07-12] MEDS: NYSTATIN 15 GM POWDER BTL TOP ×2 (10:20→22:00)
[2018-07-12] MEDS: RISPERIDONE 1 MG TAB PO (20:13)
[2018-07-12] MEDS: ZONISAMIDE 100 MG CAP PO (20:17)
[2018-07-12] MEDS: morphine LIQ (10 MG/5 ML) CUP PO (22:00)
[2018-07-13] MEDS: HYDROCODONE/APAP (5/325) TAB PO ×3 (02:11→16:42)
[2018-07-13] MEDS: LEVOFLOXACIN 500 MG TAB PO (05:28)
[2018-07-13] MEDS: ARTIFICIAL TEARS 15 ML OPH BOTH EYES ×3 (05:28→21:40)
[2018-07-13] MEDS: AMPICILLIN 500 MG CAP PO ×3 (05:28→21:39)
[2018-07-13] MEDS: morphine LIQ (10 MG/5 ML) CUP PO (05:31)
[2018-07-13] MEDS: SILVER SULFADIAZINE 1% 25 GM CR TOP (09:00)
[2018-07-13] MEDS: COLLAGENASE 5 GM (UD JAR) TOP ×2 (09:00)
[2018-07-13] MEDS: BALSAM PERU/CASTOR OIL 60 GM TUBE TOP (09:00)
[2018-07-13] MEDS: SODIUM HYPOCHLORITE (1/40) 1 APPLIC BTL IRR (09:00)
[2018-07-13] MEDS: ASCORBIC ACID 500 MG TAB PO (09:35)
[2018-07-13] MEDS: DULOXETINE 30 MG CAP DR PO (09:35)
[2018-07-13] MEDS: FAMOTIDINE 20 MG TAB PO ×2 (09:35→21:39)
[2018-07-13] MEDS: ALLOPURINOL 100 MG TAB PO (09:35)
[2018-07-13] MEDS: PYRIDOXINE 50 MG TAB PO (09:36)
[2018-07-13] MEDS: ZINC SULFATE 220 MG CAP PO (09:36)
[2018-07-13] MEDS: MULTIVITAMINS THERAPEUTIC TAB PO (09:36)
[2018-07-13] MEDS: MAGNESIUM OXIDE 400 MG TAB PO ×2 (09:36→21:39)
[2018-07-13] MEDS: VITAMIN A & D 5 GM OINT PACKET TOP ×2 (09:36→21:40)
[2018-07-13] MEDS: HYDROCORTISONE 1% 28 GM CR TOP ×2 (09:36→21:42)
[2018-07-13] MEDS: FLUCONAZOLE 100 MG TAB PO (09:37)
[2018-07-13] MEDS: GABAPENTIN 100 MG CAP PO ×2 (09:38→21:39)
[2018-07-13] MEDS: BACLOFEN 10 MG TAB PO ×3 (09:38→21:39)
[2018-07-13] MEDS: NYSTATIN 15 GM POWDER BTL TOP ×2 (09:39→21:48)
[2018-07-13] MEDS: ENOXAPARIN 40 MG/0.4 ML SYG SC (09:39)
[2018-07-13] MEDS: DOCUSATE SODIUM 100 MG CAP PO ×2 (09:42→21:42)
[2018-07-13] MEDS: FOLIC ACID 1 MG TAB PO (09:56)
[2018-07-13] MEDS: RISPERIDONE 1 MG TAB PO (21:39)
[2018-07-13] MEDS: ZONISAMIDE 100 MG CAP PO (21:39)
[2018-07-14] MEDS: HYDROCODONE/APAP (5/325) TAB PO ×3 (04:06→19:40)
[2018-07-14] MEDS: LEVOFLOXACIN 500 MG TAB PO (06:47)
[2018-07-14] MEDS: ARTIFICIAL TEARS 15 ML OPH BOTH EYES ×3 (06:47→21:31)
[2018-07-14] MEDS: AMPICILLIN 500 MG CAP PO ×2 (06:47→13:15)
[2018-07-14] MEDS: ENOXAPARIN 40 MG/0.4 ML SYG SC (08:47)
[2018-07-14] MEDS: DULOXETINE 30 MG CAP DR PO (08:48)
[2018-07-14] MEDS: ASCORBIC ACID 500 MG TAB PO (08:48)
[2018-07-14] MEDS: FOLIC ACID 1 MG TAB PO (08:48)
[2018-07-14] MEDS: VITAMIN A & D 5 GM OINT PACKET TOP ×2 (08:48→20:07)
[2018-07-14] MEDS: PYRIDOXINE 50 MG TAB PO (08:48)
[2018-07-14] MEDS: ZINC SULFATE 220 MG CAP PO (08:48)
[2018-07-14] MEDS: ALLOPURINOL 100 MG TAB PO (08:48)
[2018-07-14] MEDS: BACLOFEN 10 MG TAB PO ×3 (08:48→20:08)
[2018-07-14] MEDS: GABAPENTIN 100 MG CAP PO ×2 (08:48→20:08)
[2018-07-14] MEDS: MAGNESIUM OXIDE 400 MG TAB PO ×2 (08:48→20:07)
[2018-07-14] MEDS: MULTIVITAMINS THERAPEUTIC TAB PO (08:48)
[2018-07-14] MEDS: FAMOTIDINE 20 MG TAB PO ×2 (08:48→20:07)
[2018-07-14] MEDS: FLUCONAZOLE 100 MG TAB PO (08:48)
[2018-07-14] MEDS: DOCUSATE SODIUM 100 MG CAP PO ×2 (08:49→20:07)
[2018-07-14] MEDS: HYDROCORTISONE 1% 28 GM CR TOP ×2 (08:50→20:08)
[2018-07-14] MEDS: BALSAM PERU/CASTOR OIL 60 GM TUBE TOP (08:57)
[2018-07-14] MEDS: COLLAGENASE 5 GM (UD JAR) TOP ×2 (08:57)
[2018-07-14] MEDS: SILVER SULFADIAZINE 1% 25 GM CR TOP (08:57)
[2018-07-14] MEDS: SODIUM HYPOCHLORITE (1/40) 1 APPLIC BTL IRR (08:58)
[2018-07-14] MEDS: NYSTATIN 15 GM POWDER BTL TOP ×2 (09:02→20:08)
[2018-07-14] MEDS: RISPERIDONE 1 MG TAB PO (20:07)
[2018-07-14] MEDS: ZONISAMIDE 100 MG CAP PO (20:07)
[2018-07-15] MEDS: ARTIFICIAL TEARS 15 ML OPH BOTH EYES ×3 (06:37→22:36)
[2018-07-15] MEDS: NYSTATIN 15 GM POWDER BTL TOP ×2 (08:53→20:54)
[2018-07-15] MEDS: HYDROCORTISONE 1% 28 GM CR TOP (08:53)
[2018-07-15] MEDS: VITAMIN A & D 5 GM OINT PACKET TOP ×2 (08:53→20:55)
[2018-07-15] MEDS: ENOXAPARIN 40 MG/0.4 ML SYG SC (08:54)
[2018-07-15] MEDS: MULTIVITAMINS THERAPEUTIC TAB PO (08:55)
[2018-07-15] MEDS: FOLIC ACID 1 MG TAB PO (08:55)
[2018-07-15] MEDS: DULOXETINE 30 MG CAP DR PO (08:55)
[2018-07-15] MEDS: ZINC SULFATE 220 MG CAP PO (08:55)
[2018-07-15] MEDS: ASCORBIC ACID 500 MG TAB PO (08:56)
[2018-07-15] MEDS: FAMOTIDINE 20 MG TAB PO ×2 (08:56→20:51)
[2018-07-15] MEDS: ALLOPURINOL 100 MG TAB PO (08:56)
[2018-07-15] MEDS: GABAPENTIN 100 MG CAP PO ×2 (08:56→20:52)
[2018-07-15] MEDS: PYRIDOXINE 50 MG TAB PO (08:56)
[2018-07-15] MEDS: BACLOFEN 10 MG TAB PO ×3 (08:56→20:51)
[2018-07-15] MEDS: MAGNESIUM OXIDE 400 MG TAB PO ×2 (08:56→20:51)
[2018-07-15] MEDS: DOCUSATE SODIUM 100 MG CAP PO ×2 (08:57→20:52)
[2018-07-15] MEDS: SODIUM HYPOCHLORITE (1/40) 1 APPLIC BTL IRR (08:58)
[2018-07-15] MEDS: COLLAGENASE 5 GM (UD JAR) TOP ×2 (08:59)
[2018-07-15] MEDS: SILVER SULFADIAZINE 1% 25 GM CR TOP (09:18)
[2018-07-15] MEDS: BALSAM PERU/CASTOR OIL 60 GM TUBE TOP (09:19)
[2018-07-15] MEDS: HYDROCODONE/APAP (5/325) TAB PO ×2 (10:32→17:13)
[2018-07-15] MEDS: ZONISAMIDE 100 MG CAP PO (20:51)
[2018-07-15] MEDS: RISPERIDONE 1 MG TAB PO (20:52)
[2018-07-15] MEDS: ACETAMINOPHEN 325 MG TAB PO (20:53)
[2018-07-16] MEDS: HYDROCODONE/APAP (5/325) TAB PO ×2 (01:23→18:31)
[2018-07-16] MEDS: ARTIFICIAL TEARS 15 ML OPH BOTH EYES ×3 (06:20→22:12)
[2018-07-16] MEDS: COLLAGENASE 5 GM (UD JAR) TOP ×2 (09:00)
[2018-07-16] MEDS: SILVER NITRATE SWAB TOP (09:00)
[2018-07-16] MEDS: LIDOCAINE 1%/EPI 30 ML INJ INJ (09:00)
[2018-07-16] MEDS: SILVER SULFADIAZINE 1% 25 GM CR TOP (09:00)
[2018-07-16] MEDS: BALSAM PERU/CASTOR OIL 60 GM TUBE TOP (09:00)
[2018-07-16] MEDS: SODIUM HYPOCHLORITE (1/40) 1 APPLIC BTL IRR (09:00)
[2018-07-16] MEDS: VITAMIN A & D 5 GM OINT PACKET TOP ×2 (09:00→20:34)
[2018-07-16] MEDS: PYRIDOXINE 50 MG TAB PO (09:16)
[2018-07-16] MEDS: MAGNESIUM OXIDE 400 MG TAB PO ×2 (09:16→20:35)
[2018-07-16] MEDS: MULTIVITAMINS THERAPEUTIC TAB PO (09:16)
[2018-07-16] MEDS: ZINC SULFATE 220 MG CAP PO (09:16)
[2018-07-16] MEDS: FAMOTIDINE 20 MG TAB PO ×2 (09:16→20:34)
[2018-07-16] MEDS: GABAPENTIN 100 MG CAP PO ×2 (09:16→20:36)
[2018-07-16] MEDS: ASCORBIC ACID 500 MG TAB PO (09:17)
[2018-07-16] MEDS: DULOXETINE 30 MG CAP DR PO (09:17)
[2018-07-16] MEDS: ALLOPURINOL 100 MG TAB PO (09:17)
[2018-07-16] MEDS: FOLIC ACID 1 MG TAB PO (09:17)
[2018-07-16] MEDS: NYSTATIN 15 GM POWDER BTL TOP ×2 (09:17→20:37)
[2018-07-16] MEDS: DOCUSATE SODIUM 100 MG CAP PO ×2 (09:17→20:35)
[2018-07-16] MEDS: BACLOFEN 10 MG TAB PO ×3 (09:17→20:35)
[2018-07-16] MEDS: ENOXAPARIN 40 MG/0.4 ML SYG SC (09:19)
[2018-07-16] MEDS: ZONISAMIDE 100 MG CAP PO (20:34)
[2018-07-16] MEDS: RISPERIDONE 1 MG TAB PO (20:35)
[2018-07-16] MEDS: ACETAMINOPHEN 325 MG TAB PO (20:36)
[2018-07-17] MEDS: HYDROCODONE/APAP (5/325) TAB PO ×3 (00:55→18:28)
[2018-07-17] MEDS: ARTIFICIAL TEARS 15 ML OPH BOTH EYES ×3 (06:28→22:06)
[2018-07-17 06:41] LABS: ADD MAN DIFF? NO
[2018-07-17 06:47] LABS: WHITE BLOOD COUNT 5.2 10^3/ul (4.8-10.8)
[2018-07-17 06:47] LABS: BASOPHILS % 0.4 % (0.0-2.0); EOSINOPHILS # 0.3 10^3/ul (0.0-0.5); EOSINOPHILS % 6.3 % (0.0-7.0); HEMATOCRIT 29.2 % (42.0-52.0); HEMOGLOBIN 9.1 g/dl (14.0-18.0); LYMPHOCYTES # 2.1 10^3/ul (0.8-2.9); MEAN CORPUSCULAR HEMOGLOBIN 25.3 pg (29.0-33.0); MEAN CORPUSCULAR HGB CONC 31.2 g/dl (32.0-37.0); MEAN CORPUSCULAR VOLUME 81.1 fl (82.0-101.0); MEAN PLATELET VOLUME 9.3 fl (7.4-10.4); MONOCYTE # 0.5 10^3/ul (0.3-0.9); MONOCYTES % 10.3 % (0.0-11.0); NEUTROPHIL # 2.2 10^3/ul (1.6-7.5); NEUTROPHILS % 42.6 % (39.0-77.0); PLATELET COUNT 333 10^3/UL (140-415); RED CELL DISTRIBUTION WIDTH 15.1 % (11.5-14.5)
[2018-07-17 07:11] LABS: ANION GAP 9 (5-13); BLOOD UREA NITROGEN 27 mg/dl (7-20); CALCIUM 9.7 mg/dl (8.4-10.2); CARBON DIOXIDE 23 mmol/L (21-31); CHLORIDE 106 mmol/L (97-110); CREATININE 0.84 mg/dl (0.61-1.24); Estimated GFR > 60 mL/min (>60); GLUCOSE 89 mg/dl (70-220); MAGNESIUM 2.2 mg/dl (1.7-2.5); PHOSPHORUS 4.6 mg/dl (2.5-4.9); POTASSIUM 4.1 mmol/L (3.5-5.1); SODIUM 138 mmol/L (135-144)
[2018-07-17] MEDS: ALLOPURINOL 100 MG TAB PO (08:28)
[2018-07-17] MEDS: BACLOFEN 10 MG TAB PO ×3 (08:28→20:42)
[2018-07-17] MEDS: FOLIC ACID 1 MG TAB PO (08:28)
[2018-07-17] MEDS: DULOXETINE 30 MG CAP DR PO (08:28)
[2018-07-17] MEDS: ASCORBIC ACID 500 MG TAB PO (08:29)
[2018-07-17] MEDS: FAMOTIDINE 20 MG TAB PO ×2 (08:29→20:42)
[2018-07-17] MEDS: MULTIVITAMINS THERAPEUTIC TAB PO (08:29)
[2018-07-17] MEDS: GABAPENTIN 100 MG CAP PO ×2 (08:29→20:42)
[2018-07-17] MEDS: DOCUSATE SODIUM 100 MG CAP PO ×2 (08:29→20:42)
[2018-07-17] MEDS: MAGNESIUM OXIDE 400 MG TAB PO ×2 (08:29→20:42)
[2018-07-17] MEDS: SODIUM HYPOCHLORITE (1/40) 1 APPLIC BTL IRR (08:30)
[2018-07-17] MEDS: PYRIDOXINE 50 MG TAB PO (08:32)
[2018-07-17] MEDS: BALSAM PERU/CASTOR OIL 60 GM TUBE TOP (08:33)
[2018-07-17] MEDS: VITAMIN A & D 5 GM OINT PACKET TOP ×2 (08:33→20:43)
[2018-07-17] MEDS: SILVER SULFADIAZINE 1% 25 GM CR TOP (08:33)
[2018-07-17] MEDS: COLLAGENASE 5 GM (UD JAR) TOP ×2 (08:33)
[2018-07-17] MEDS: ENOXAPARIN 40 MG/0.4 ML SYG SC (08:34)
[2018-07-17] MEDS: NYSTATIN 15 GM POWDER BTL TOP ×2 (08:34→20:46)
[2018-07-17] MEDS: ZINC SULFATE 220 MG CAP PO (08:36)
[2018-07-17] MEDS: RISPERIDONE 1 MG TAB PO (20:42)
[2018-07-17] MEDS: ZONISAMIDE 100 MG CAP PO (20:42)
[2018-07-18] MEDS: ARTIFICIAL TEARS 15 ML OPH BOTH EYES ×3 (06:43→22:09)
[2018-07-18] MEDS: SILVER SULFADIAZINE 1% 25 GM CR TOP (09:00)
[2018-07-18] MEDS: SODIUM HYPOCHLORITE (1/40) 1 APPLIC BTL IRR (09:00)
[2018-07-18] MEDS: COLLAGENASE 5 GM (UD JAR) TOP ×2 (09:00)
[2018-07-18] MEDS: HYDROCODONE/APAP (5/325) TAB PO ×2 (10:12→17:26)
[2018-07-18] MEDS: FOLIC ACID 1 MG TAB PO (10:12)
[2018-07-18] MEDS: VITAMIN A & D 5 GM OINT PACKET TOP ×2 (10:12→21:15)
[2018-07-18] MEDS: ZINC SULFATE 220 MG CAP PO (10:12)
[2018-07-18] MEDS: DULOXETINE 30 MG CAP DR PO (10:12)
[2018-07-18] MEDS: MULTIVITAMINS THERAPEUTIC TAB PO (10:13)
[2018-07-18] MEDS: PYRIDOXINE 50 MG TAB PO (10:13)
[2018-07-18] MEDS: FAMOTIDINE 20 MG TAB PO ×2 (10:13→21:16)
[2018-07-18] MEDS: GABAPENTIN 100 MG CAP PO ×2 (10:13→21:16)
[2018-07-18] MEDS: ASCORBIC ACID 500 MG TAB PO (10:13)
[2018-07-18] MEDS: ALLOPURINOL 100 MG TAB PO (10:13)
[2018-07-18] MEDS: BACLOFEN 10 MG TAB PO ×3 (10:13→21:15)
[2018-07-18] MEDS: MAGNESIUM OXIDE 400 MG TAB PO ×2 (10:13→21:16)
[2018-07-18] MEDS: DOCUSATE SODIUM 100 MG CAP PO ×2 (10:13→21:16)
[2018-07-18] MEDS: BALSAM PERU/CASTOR OIL 60 GM TUBE TOP (10:15)
[2018-07-18] MEDS: NYSTATIN 15 GM POWDER BTL TOP ×2 (10:16→21:19)
[2018-07-18] MEDS: ENOXAPARIN 40 MG/0.4 ML SYG SC (10:19)
[2018-07-18] MEDS: ZONISAMIDE 100 MG CAP PO (21:15)
[2018-07-18] MEDS: RISPERIDONE 1 MG TAB PO (21:16)
[2018-07-19] MEDS: HYDROCODONE/APAP (5/325) TAB PO ×3 (00:39→21:26)
[2018-07-19] MEDS: ARTIFICIAL TEARS 15 ML OPH BOTH EYES ×3 (05:36→22:45)
[2018-07-19] MEDS: DOCUSATE SODIUM 100 MG CAP PO ×2 (09:00→21:26)
[2018-07-19] MEDS: SODIUM HYPOCHLORITE (1/40) 1 APPLIC BTL IRR (09:00)
[2018-07-19] MEDS: COLLAGENASE 5 GM (UD JAR) TOP ×2 (09:00)
[2018-07-19] MEDS: MULTIVITAMINS THERAPEUTIC TAB PO (09:04)
[2018-07-19] MEDS: FAMOTIDINE 20 MG TAB PO ×2 (09:04→21:27)
[2018-07-19] MEDS: DULOXETINE 30 MG CAP DR PO (09:04)
[2018-07-19] MEDS: FOLIC ACID 1 MG TAB PO (09:04)
[2018-07-19] MEDS: ZINC SULFATE 220 MG CAP PO (09:04)
[2018-07-19] MEDS: VITAMIN A & D 5 GM OINT PACKET TOP ×2 (09:04→21:30)
[2018-07-19] MEDS: ASCORBIC ACID 500 MG TAB PO (09:04)
[2018-07-19] MEDS: MAGNESIUM OXIDE 400 MG TAB PO ×2 (09:05→21:27)
[2018-07-19] MEDS: BACLOFEN 10 MG TAB PO ×3 (09:05→21:27)
[2018-07-19] MEDS: GABAPENTIN 100 MG CAP PO ×2 (09:05→21:26)
[2018-07-19] MEDS: ALLOPURINOL 100 MG TAB PO (09:05)
[2018-07-19] MEDS: PYRIDOXINE 50 MG TAB PO (09:05)
[2018-07-19] MEDS: ENOXAPARIN 40 MG/0.4 ML SYG SC (09:07)
[2018-07-19] MEDS: NYSTATIN 15 GM POWDER BTL TOP ×2 (09:17→21:30)
[2018-07-19] MEDS: SILVER SULFADIAZINE 1% 25 GM CR TOP (09:18)
[2018-07-19] MEDS: BALSAM PERU/CASTOR OIL 60 GM TUBE TOP (09:18)
[2018-07-19] MEDS: RISPERIDONE 1 MG TAB PO (21:26)
[2018-07-19] MEDS: ZONISAMIDE 100 MG CAP PO (21:26)
[2018-07-20] MEDS: ARTIFICIAL TEARS 15 ML OPH BOTH EYES ×3 (06:00→20:30)
[2018-07-20] MEDS: COLLAGENASE 5 GM (UD JAR) TOP ×2 (09:00)
[2018-07-20] MEDS: SODIUM HYPOCHLORITE (1/40) 1 APPLIC BTL IRR (09:00)
[2018-07-20] MEDS: BALSAM PERU/CASTOR OIL 60 GM TUBE TOP (09:00)
[2018-07-20] MEDS: VITAMIN A & D 5 GM OINT PACKET TOP ×2 (09:00→20:30)
[2018-07-20] MEDS: SILVER SULFADIAZINE 1% 25 GM CR TOP (09:00)
[2018-07-20] MEDS: NYSTATIN 15 GM POWDER BTL TOP ×2 (09:00→22:51)
[2018-07-20] MEDS: ENOXAPARIN 40 MG/0.4 ML SYG SC (09:11)
[2018-07-20] MEDS: DULOXETINE 30 MG CAP DR PO (09:12)
[2018-07-20] MEDS: PYRIDOXINE 50 MG TAB PO (09:12)
[2018-07-20] MEDS: BACLOFEN 10 MG TAB PO ×3 (09:12→20:31)
[2018-07-20] MEDS: ALLOPURINOL 100 MG TAB PO (09:12)
[2018-07-20] MEDS: DOCUSATE SODIUM 100 MG CAP PO ×2 (09:12→20:30)
[2018-07-20] MEDS: ASCORBIC ACID 500 MG TAB PO (09:13)
[2018-07-20] MEDS: MULTIVITAMINS THERAPEUTIC TAB PO (09:13)
[2018-07-20] MEDS: FOLIC ACID 1 MG TAB PO (09:13)
[2018-07-20] MEDS: MAGNESIUM OXIDE 400 MG TAB PO ×2 (09:13→20:31)
[2018-07-20] MEDS: ZINC SULFATE 220 MG CAP PO (09:13)
[2018-07-20] MEDS: GABAPENTIN 100 MG CAP PO ×2 (09:13→20:31)
[2018-07-20] MEDS: FAMOTIDINE 20 MG TAB PO ×2 (09:13→20:31)
[2018-07-20] MEDS: HYDROCODONE/APAP (5/325) TAB PO ×2 (09:21→19:18)
[2018-07-20] MEDS: ZONISAMIDE 100 MG CAP PO (20:30)
[2018-07-20] MEDS: RISPERIDONE 1 MG TAB PO (20:31)
[2018-07-21] MEDS: HYDROCODONE/APAP (5/325) TAB PO ×3 (01:45→17:40)
[2018-07-21] MEDS: ARTIFICIAL TEARS 15 ML OPH BOTH EYES ×3 (05:34→21:36)
[2018-07-21] MEDS: ENOXAPARIN 40 MG/0.4 ML SYG SC (08:16)
[2018-07-21] MEDS: COLLAGENASE 5 GM (UD JAR) TOP ×2 (08:16→08:17)
[2018-07-21] MEDS: ALLOPURINOL 100 MG TAB PO (08:17)
[2018-07-21] MEDS: PYRIDOXINE 50 MG TAB PO (08:17)
[2018-07-21] MEDS: DULOXETINE 30 MG CAP DR PO (08:17)
[2018-07-21] MEDS: FAMOTIDINE 20 MG TAB PO ×2 (08:17→21:02)
[2018-07-21] MEDS: BACLOFEN 10 MG TAB PO ×3 (08:17→21:02)
[2018-07-21] MEDS: ZINC SULFATE 220 MG CAP PO (08:17)
[2018-07-21] MEDS: ASCORBIC ACID 500 MG TAB PO (08:17)
[2018-07-21] MEDS: FOLIC ACID 1 MG TAB PO (08:17)
[2018-07-21] MEDS: MAGNESIUM OXIDE 400 MG TAB PO ×2 (08:17→21:02)
[2018-07-21] MEDS: MULTIVITAMINS THERAPEUTIC TAB PO (08:17)
[2018-07-21] MEDS: VITAMIN A & D 5 GM OINT PACKET TOP ×2 (08:17→21:03)
[2018-07-21] MEDS: GABAPENTIN 100 MG CAP PO ×2 (08:18→21:02)
[2018-07-21] MEDS: DOCUSATE SODIUM 100 MG CAP PO ×2 (08:20→21:00)
[2018-07-21] MEDS: NYSTATIN 15 GM POWDER BTL TOP ×2 (08:24→21:03)
[2018-07-21] MEDS: SILVER SULFADIAZINE 1% 25 GM CR TOP (08:25)
[2018-07-21] MEDS: BALSAM PERU/CASTOR OIL 60 GM TUBE TOP (08:25)
[2018-07-21] MEDS: SODIUM HYPOCHLORITE (1/40) 1 APPLIC BTL IRR (10:05)
[2018-07-21] MEDS: RISPERIDONE 1 MG TAB PO (21:02)
[2018-07-21] MEDS: DOXYCYCLINE 100 MG TAB PO (21:02)
[2018-07-21] MEDS: ZONISAMIDE 100 MG CAP PO (21:02)
[2018-07-21] MEDS: AMOXICILLIN 500 MG CAP PO (21:36)
[2018-07-22] MEDS: ARTIFICIAL TEARS 15 ML OPH BOTH EYES ×3 (05:29→21:00)
[2018-07-22] MEDS: AMOXICILLIN 500 MG CAP PO ×3 (05:29→22:21)
[2018-07-22] MEDS: HYDROCODONE/APAP (5/325) TAB PO ×3 (05:32→20:49)
[2018-07-22] MEDS: COLLAGENASE 5 GM (UD JAR) TOP ×2 (09:00)
[2018-07-22] MEDS: SODIUM HYPOCHLORITE (1/40) 1 APPLIC BTL IRR (09:00)
[2018-07-22] MEDS: ENOXAPARIN 40 MG/0.4 ML SYG SC (09:33)
[2018-07-22] MEDS: MULTIVITAMINS THERAPEUTIC TAB PO (09:34)
[2018-07-22] MEDS: GABAPENTIN 100 MG CAP PO ×2 (09:34→20:55)
[2018-07-22] MEDS: MAGNESIUM OXIDE 400 MG TAB PO ×2 (09:34→20:50)
[2018-07-22] MEDS: ZINC SULFATE 220 MG CAP PO (09:34)
[2018-07-22] MEDS: FOLIC ACID 1 MG TAB PO (09:34)
[2018-07-22] MEDS: VITAMIN A & D 5 GM OINT PACKET TOP ×2 (09:34→20:49)
[2018-07-22] MEDS: DOCUSATE SODIUM 100 MG CAP PO ×2 (09:34→20:51)
[2018-07-22] MEDS: FAMOTIDINE 20 MG TAB PO ×2 (09:34→20:55)
[2018-07-22] MEDS: ALLOPURINOL 100 MG TAB PO (09:34)
[2018-07-22] MEDS: ASCORBIC ACID 500 MG TAB PO (09:35)
[2018-07-22] MEDS: PYRIDOXINE 50 MG TAB PO (09:35)
[2018-07-22] MEDS: BACLOFEN 10 MG TAB PO ×3 (09:35→20:50)
[2018-07-22] MEDS: DULOXETINE 30 MG CAP DR PO (09:35)
[2018-07-22] MEDS: DOXYCYCLINE 100 MG TAB PO ×2 (09:35→20:49)
[2018-07-22] MEDS: NYSTATIN 15 GM POWDER BTL TOP ×2 (09:39→20:56)
[2018-07-22] MEDS: BALSAM PERU/CASTOR OIL 60 GM TUBE TOP (09:39)
[2018-07-22] MEDS: SILVER SULFADIAZINE 1% 25 GM CR TOP (09:39)
[2018-07-22] MEDS: RISPERIDONE 1 MG TAB PO (20:50)
[2018-07-22] MEDS: ZONISAMIDE 100 MG CAP PO (21:00)
[2018-07-23] MEDS: HYDROCODONE/APAP (5/325) TAB PO ×4 (02:51→20:18)
[2018-07-23] MEDS: ARTIFICIAL TEARS 15 ML OPH BOTH EYES ×3 (06:57→23:02)
[2018-07-23] MEDS: AMOXICILLIN 500 MG CAP PO ×3 (06:57→23:02)
[2018-07-23] MEDS: SODIUM HYPOCHLORITE (1/40) 1 APPLIC BTL IRR (08:18)
[2018-07-23] MEDS: DOXYCYCLINE 100 MG TAB PO ×2 (08:49→20:16)
[2018-07-23] MEDS: MAGNESIUM OXIDE 400 MG TAB PO ×2 (08:49→20:15)
[2018-07-23] MEDS: DULOXETINE 30 MG CAP DR PO (08:49)
[2018-07-23] MEDS: GABAPENTIN 100 MG CAP PO ×2 (08:49→20:16)
[2018-07-23] MEDS: ZINC SULFATE 220 MG CAP PO (08:49)
[2018-07-23] MEDS: PYRIDOXINE 50 MG TAB PO (08:49)
[2018-07-23] MEDS: FAMOTIDINE 20 MG TAB PO ×2 (08:49→20:15)
[2018-07-23] MEDS: BACLOFEN 10 MG TAB PO ×3 (08:49→20:15)
[2018-07-23] MEDS: ALLOPURINOL 100 MG TAB PO (08:49)
[2018-07-23] MEDS: FOLIC ACID 1 MG TAB PO (08:49)
[2018-07-23] MEDS: MULTIVITAMINS THERAPEUTIC TAB PO (08:49)
[2018-07-23] MEDS: DOCUSATE SODIUM 100 MG CAP PO ×2 (08:49→20:15)
[2018-07-23] MEDS: ASCORBIC ACID 500 MG TAB PO (08:49)
[2018-07-23] MEDS: COLLAGENASE 5 GM (UD JAR) TOP ×2 (08:51)
[2018-07-23] MEDS: ENOXAPARIN 40 MG/0.4 ML SYG SC (08:51)
[2018-07-23] MEDS: VITAMIN A & D 5 GM OINT PACKET TOP ×2 (08:52→21:00)
[2018-07-23] MEDS: BALSAM PERU/CASTOR OIL 60 GM TUBE TOP (08:52)
[2018-07-23] MEDS: SILVER SULFADIAZINE 1% 25 GM CR TOP (08:52)
[2018-07-23] MEDS: NYSTATIN 15 GM POWDER BTL TOP ×2 (08:53→21:00)
[2018-07-23] MEDS: RISPERIDONE 1 MG TAB PO (20:16)
[2018-07-23] MEDS: ZONISAMIDE 100 MG CAP PO (20:17)
[2018-07-24] MEDS: HYDROCODONE/APAP (5/325) TAB PO ×4 (03:16→21:49)
[2018-07-24] MEDS: AMOXICILLIN 500 MG CAP PO ×3 (06:54→21:48)
[2018-07-24] MEDS: ARTIFICIAL TEARS 15 ML OPH BOTH EYES ×3 (06:55→21:48)
[2018-07-24] MEDS: DOXYCYCLINE 100 MG TAB PO ×2 (08:32→20:14)
[2018-07-24] MEDS: GABAPENTIN 100 MG CAP PO ×2 (08:32→20:12)
[2018-07-24] MEDS: ZINC SULFATE 220 MG CAP PO (08:32)
[2018-07-24] MEDS: MAGNESIUM OXIDE 400 MG TAB PO ×2 (08:32→20:12)
[2018-07-24] MEDS: FOLIC ACID 1 MG TAB PO (08:32)
[2018-07-24] MEDS: ALLOPURINOL 100 MG TAB PO (08:32)
[2018-07-24] MEDS: FAMOTIDINE 20 MG TAB PO ×2 (08:32→20:12)
[2018-07-24] MEDS: DULOXETINE 30 MG CAP DR PO (08:32)
[2018-07-24] MEDS: DOCUSATE SODIUM 100 MG CAP PO ×2 (08:32→20:11)
[2018-07-24] MEDS: PYRIDOXINE 50 MG TAB PO (08:32)
[2018-07-24] MEDS: ASCORBIC ACID 500 MG TAB PO (08:32)
[2018-07-24] MEDS: BACLOFEN 10 MG TAB PO ×3 (08:32→20:12)
[2018-07-24] MEDS: MULTIVITAMINS THERAPEUTIC TAB PO (08:32)
[2018-07-24] MEDS: ENOXAPARIN 40 MG/0.4 ML SYG SC (08:33)
[2018-07-24] MEDS: SODIUM HYPOCHLORITE (1/40) 1 APPLIC BTL IRR (08:33)
[2018-07-24] MEDS: VITAMIN A & D 5 GM OINT PACKET TOP ×2 (08:35→21:00)
[2018-07-24] MEDS: NYSTATIN 15 GM POWDER BTL TOP ×2 (08:35→21:00)
[2018-07-24] MEDS: BALSAM PERU/CASTOR OIL 60 GM TUBE TOP (08:35)
[2018-07-24] MEDS: SILVER SULFADIAZINE 1% 25 GM CR TOP (08:35)
[2018-07-24] MEDS: COLLAGENASE 5 GM (UD JAR) TOP ×2 (08:35)
[2018-07-24] MEDS: ZONISAMIDE 100 MG CAP PO (20:11)
[2018-07-24] MEDS: RISPERIDONE 1 MG TAB PO (20:14)
[2018-07-25] MEDS: AMOXICILLIN 500 MG CAP PO ×3 (05:07→21:01)
[2018-07-25] MEDS: HYDROCODONE/APAP (5/325) TAB PO ×3 (05:07→18:49)
[2018-07-25] MEDS: ARTIFICIAL TEARS 15 ML OPH BOTH EYES ×3 (05:08→21:02)
[2018-07-25] MEDS: SODIUM HYPOCHLORITE (1/40) 1 APPLIC BTL IRR (09:00)
[2018-07-25] MEDS: VITAMIN A & D 5 GM OINT PACKET TOP ×2 (09:00→21:02)
[2018-07-25] MEDS: BALSAM PERU/CASTOR OIL 60 GM TUBE TOP (09:00)
[2018-07-25] MEDS: COLLAGENASE 5 GM (UD JAR) TOP ×2 (09:00)
[2018-07-25] MEDS: ENOXAPARIN 40 MG/0.4 ML SYG SC (09:20)
[2018-07-25] MEDS: FOLIC ACID 1 MG TAB PO (09:21)
[2018-07-25] MEDS: DULOXETINE 30 MG CAP DR PO (09:21)
[2018-07-25] MEDS: GABAPENTIN 100 MG CAP PO ×2 (09:21→21:01)
[2018-07-25] MEDS: MULTIVITAMINS THERAPEUTIC TAB PO (09:21)
[2018-07-25] MEDS: MAGNESIUM OXIDE 400 MG TAB PO ×2 (09:21→21:01)
[2018-07-25] MEDS: FAMOTIDINE 20 MG TAB PO ×2 (09:21→21:01)
[2018-07-25] MEDS: ZINC SULFATE 220 MG CAP PO (09:21)
[2018-07-25] MEDS: PYRIDOXINE 50 MG TAB PO (09:21)
[2018-07-25] MEDS: ALLOPURINOL 100 MG TAB PO (09:21)
[2018-07-25] MEDS: DOXYCYCLINE 100 MG TAB PO ×2 (09:21→21:01)
[2018-07-25] MEDS: BACLOFEN 10 MG TAB PO ×3 (09:21→21:05)
[2018-07-25] MEDS: DOCUSATE SODIUM 100 MG CAP PO ×2 (09:22→21:01)
[2018-07-25] MEDS: ASCORBIC ACID 500 MG TAB PO (09:22)
[2018-07-25] MEDS: NYSTATIN 15 GM POWDER BTL TOP ×2 (09:37→21:07)
[2018-07-25] MEDS: SILVER SULFADIAZINE 1% 25 GM CR TOP ×2 (09:37→12:58)
[2018-07-25] MEDS: RISPERIDONE 1 MG TAB PO (21:01)
[2018-07-25] MEDS: ZONISAMIDE 100 MG CAP PO (21:01)
[2018-07-26] MEDS: HYDROCODONE/APAP (5/325) TAB PO ×4 (01:01→20:00)
[2018-07-26] MEDS: AMOXICILLIN 500 MG CAP PO ×3 (05:06→21:36)
[2018-07-26] MEDS: ARTIFICIAL TEARS 15 ML OPH BOTH EYES ×3 (05:06→21:24)
[2018-07-26] MEDS: SODIUM HYPOCHLORITE (1/40) 1 APPLIC BTL IRR (08:59)
[2018-07-26] MEDS: SILVER SULFADIAZINE 1% 25 GM CR TOP (09:00)
[2018-07-26] MEDS: COLLAGENASE 5 GM (UD JAR) TOP ×2 (09:00)
[2018-07-26] MEDS: BALSAM PERU/CASTOR OIL 60 GM TUBE TOP (09:00)
[2018-07-26] MEDS: VITAMIN A & D 5 GM OINT PACKET TOP ×2 (09:00→21:27)
[2018-07-26] MEDS: FOLIC ACID 1 MG TAB PO (09:05)
[2018-07-26] MEDS: DULOXETINE 30 MG CAP DR PO (09:05)
[2018-07-26] MEDS: FAMOTIDINE 20 MG TAB PO ×2 (09:05→21:36)
[2018-07-26] MEDS: GABAPENTIN 100 MG CAP PO ×2 (09:05→21:36)
[2018-07-26] MEDS: PYRIDOXINE 50 MG TAB PO (09:05)
[2018-07-26] MEDS: DOXYCYCLINE 100 MG TAB PO ×2 (09:05→21:36)
[2018-07-26] MEDS: ASCORBIC ACID 500 MG TAB PO (09:05)
[2018-07-26] MEDS: BACLOFEN 10 MG TAB PO ×3 (09:05→21:36)
[2018-07-26] MEDS: ALLOPURINOL 100 MG TAB PO (09:05)
[2018-07-26] MEDS: ZINC SULFATE 220 MG CAP PO (09:05)
[2018-07-26] MEDS: MAGNESIUM OXIDE 400 MG TAB PO ×2 (09:05→21:35)
[2018-07-26] MEDS: MULTIVITAMINS THERAPEUTIC TAB PO (09:05)
[2018-07-26] MEDS: DOCUSATE SODIUM 100 MG CAP PO ×2 (09:08→21:37)
[2018-07-26] MEDS: ENOXAPARIN 40 MG/0.4 ML SYG SC (09:14)
[2018-07-26] MEDS: NYSTATIN 15 GM POWDER BTL TOP ×2 (09:24→21:27)
[2018-07-26] MEDS: RISPERIDONE 1 MG TAB PO (21:36)
[2018-07-26] MEDS: ZONISAMIDE 100 MG CAP PO (21:37)
[2018-07-27] MEDS: HYDROCODONE/APAP (5/325) TAB PO ×4 (04:49→23:37)
[2018-07-27] MEDS: AMOXICILLIN 500 MG CAP PO ×3 (05:00→21:10)
[2018-07-27] MEDS: ARTIFICIAL TEARS 15 ML OPH BOTH EYES ×3 (05:00→21:09)
[2018-07-27] MEDS: COLLAGENASE 5 GM (UD JAR) TOP ×2 (09:00→09:47)
[2018-07-27] MEDS: DOXYCYCLINE 100 MG TAB PO ×2 (09:47→21:10)
[2018-07-27] MEDS: MAGNESIUM OXIDE 400 MG TAB PO ×2 (09:47→21:10)
[2018-07-27] MEDS: MULTIVITAMINS THERAPEUTIC TAB PO (09:48)
[2018-07-27] MEDS: ZINC SULFATE 220 MG CAP PO (09:48)
[2018-07-27] MEDS: BACLOFEN 10 MG TAB PO ×3 (09:48→21:10)
[2018-07-27] MEDS: PYRIDOXINE 50 MG TAB PO (09:48)
[2018-07-27] MEDS: ALLOPURINOL 100 MG TAB PO (09:48)
[2018-07-27] MEDS: ASCORBIC ACID 500 MG TAB PO (09:48)
[2018-07-27] MEDS: FAMOTIDINE 20 MG TAB PO ×2 (09:48→21:10)
[2018-07-27] MEDS: DOCUSATE SODIUM 100 MG CAP PO ×2 (09:48→21:10)
[2018-07-27] MEDS: FOLIC ACID 1 MG TAB PO (09:48)
[2018-07-27] MEDS: DULOXETINE 30 MG CAP DR PO (09:48)
[2018-07-27] MEDS: GABAPENTIN 100 MG CAP PO ×2 (09:49→21:10)
[2018-07-27] MEDS: VITAMIN A & D 5 GM OINT PACKET TOP ×2 (09:49→21:09)
[2018-07-27] MEDS: NYSTATIN 15 GM POWDER BTL TOP ×2 (09:50→21:14)
[2018-07-27] MEDS: SILVER SULFADIAZINE 1% 25 GM CR TOP (09:50)
[2018-07-27] MEDS: ENOXAPARIN 40 MG/0.4 ML SYG SC (09:57)
[2018-07-27] MEDS: BALSAM PERU/CASTOR OIL 60 GM TUBE TOP (11:05)
[2018-07-27] MEDS: SODIUM HYPOCHLORITE (1/40) 1 APPLIC BTL IRR (11:05)
[2018-07-27] MEDS: ZONISAMIDE 100 MG CAP PO (21:10)
[2018-07-27] MEDS: RISPERIDONE 1 MG TAB PO (21:10)
[2018-07-28] MEDS: AMOXICILLIN 500 MG CAP PO ×2 (05:29→13:06)
[2018-07-28] MEDS: HYDROCODONE/APAP (5/325) TAB PO ×2 (05:30→13:06)
[2018-07-28] MEDS: ARTIFICIAL TEARS 15 ML OPH BOTH EYES ×2 (05:30→13:06)
[2018-07-28] MEDS: FAMOTIDINE 20 MG TAB PO (09:50)
[2018-07-28] MEDS: FOLIC ACID 1 MG TAB PO (09:50)
[2018-07-28] MEDS: ZINC SULFATE 220 MG CAP PO (09:50)
[2018-07-28] MEDS: MAGNESIUM OXIDE 400 MG TAB PO (09:50)
[2018-07-28] MEDS: DULOXETINE 30 MG CAP DR PO (09:51)
[2018-07-28] MEDS: BACLOFEN 10 MG TAB PO ×2 (09:51→13:06)
[2018-07-28] MEDS: ASCORBIC ACID 500 MG TAB PO (09:51)
[2018-07-28] MEDS: PYRIDOXINE 50 MG TAB PO (09:51)
[2018-07-28] MEDS: ALLOPURINOL 100 MG TAB PO (09:51)
[2018-07-28] MEDS: DOXYCYCLINE 100 MG TAB PO (09:51)
[2018-07-28] MEDS: MULTIVITAMINS THERAPEUTIC TAB PO (09:51)
[2018-07-28] MEDS: GABAPENTIN 100 MG CAP PO (09:52)
[2018-07-28] MEDS: DOCUSATE SODIUM 100 MG CAP PO (09:52)
[2018-07-28] MEDS: ENOXAPARIN 40 MG/0.4 ML SYG SC (09:55)
[2018-07-28] MEDS: VITAMIN A & D 5 GM OINT PACKET TOP (17:36)
[2018-07-28] MEDS: NYSTATIN 15 GM POWDER BTL TOP (17:37)
[2018-07-28] MEDS: SILVER SULFADIAZINE 1% 25 GM CR TOP (17:37)
[2018-07-28] MEDS: COLLAGENASE 5 GM (UD JAR) TOP ×2 (17:37→17:39)
[2018-07-28] MEDS: BALSAM PERU/CASTOR OIL 60 GM TUBE TOP (17:37)
[2018-07-28] MEDS: SODIUM HYPOCHLORITE (1/40) 1 APPLIC BTL IRR (17:38)
== END 2018-07-28 18:17 | DRG 570 ==
LOC: PP2 07-03 16:39 → E/R 09:39 → PP2 14:38
PROC: 0JBR0ZZ Excision of Left Foot Subcutaneous Tissue and Fascia, Open Approach (ICD-10-PCS; principal; 2018-05-28)
PROC: 0JBQ0ZZ Excision of Right Foot Subcutaneous Tissue and Fascia, Open Approach (ICD-10-PCS; 2018-05-28)
PROC: 0JB70ZZ Excision of Back Subcutaneous Tissue and Fascia, Open Approach (ICD-10-PCS; 2018-06-13)
PROC: 0JB70ZZ Excision of Back Subcutaneous Tissue and Fascia, Open Approach (ICD-10-PCS; 2018-06-20)
PROC: 0JB70ZZ Excision of Back Subcutaneous Tissue and Fascia, Open Approach (ICD-10-PCS; 2018-06-20)
PROC: 0KBV0ZZ Excision of Right Foot Muscle, Open Approach (ICD-10-PCS; 2018-07-02)
PROC: 0H9HXZZ Drainage of Right Upper Leg Skin, External Approach (ICD-10-PCS; 2018-07-04)
PROC: 0QB10ZZ Excision of Sacrum, Open Approach (ICD-10-PCS; 2018-07-16)
PROC: 30233N1 Transfusion of Nonautologous Red Blood Cells into Peripheral Vein, Percutaneous Approach (ICD-10-PCS; 2018-07-17)
DX: L03.116 Cellulitis of left lower limb (principal); L89.153 Pressure ulcer of sacral region, stage 3; L89.154 Pressure ulcer of sacral region, stage 4; G82.20 Paraplegia, unspecified; B37.89 Other sites of candidiasis; L89.622 Pressure ulcer of left heel, stage 2; L03.115 Cellulitis of right lower limb; L89.611 Pressure ulcer of right heel, stage 1; D64.9 Anemia, unspecified; Z74.01 Bed confinement status; F32.9 Major depressive disorder, single episode, unspecified; I10 Essential (primary) hypertension; B95.2 Enterococcus as the cause of diseases classified elsewhere; B95.7 Other staphylococcus as the cause of diseases classified elsewhere; Z16.21 Resistance to vancomycin; B96.89 Other specified bacterial agents as the cause of diseases classified elsewhere
CPT/HCPCS: 36415; 36430; 71045; 73630; 73630-LT; 80048; 80053; 80202; 81003; 82150; 82565; 82728; 83036; 83540; 83605; 83690; 83735; 84100; 84145; 84484; 84520; 85025; 85610; 85651; 85730; 86140; 86480; 86850; 86900; 86901; 86920; 87040; 87070; 87081; 87086; 88307; 90686; 93005; 93922; 96374; 96375; 97110; 97163; 97167; 97530; 97535; 99285-25; G0378